=== PATIENT | male | born 1990 | race Caucasian/White ===

== ENCOUNTER 2016-09-13 13:52 | Outpatient (CLI) ==
[2016-08-26 17:40] VITALS: BMI 22.2
--- NOTE | 2016-09-13 16:20 | MRI ---
EXAM: MRI lumbar spine without IV contrast. DATE: 09/13/2016. HISTORY: Low back pain. TECHNIQUE: Sagittal and axial T1W and T2W sequences of the lumbar spine along with sagittal IR and coronal T2W sequences were obtained using 1.2 Юлия magnet. No IV contrast. COMPARISON: MRI L-spine 10/19/2014. CT L-spine 02/14/2014. FINDINGS: There are five [id number] lumbar vertebra. Minor leftward curvature of the lumbar s pine is observed. No acute lumbar fracture, subluxation, osseous malignancy, or pars interarticular is defect is identified. Lumbar vertebrae normal in height. Tiny, chronic Schmorl's nodes are seen at T11 and T12. Bone marrow signal is normal. Minor disc desiccation without significant disc spa ce narrowing is observed at L1-2. Remaining intervertebral discs are normal in height and signal. No sacral fracture or stress reaction is apparent at SI joints are unremarkable. Conus medullaris t erminates at L1-2. Visible spinal cord is normal. No retroperitoneal lymphadenopathy, paraspinal mass, or aortic aneurysm is detected. Paraspinal mus culature is symmetric and normal bilaterally. Visible portions of the liver, gallbladder, spleen, a drenal glands, and kidneys are normal. No bowel obstruction or neoplasm is evident. Segmental analysis: T11-12: Sagittal images reveal tiny posterior disc bulge. No cord compression, central stenosis or foraminal stenosis. T12-L1: Normal. L1-2: Minimal posterior disc bulge does not cause central stenosis or foraminal stenosis. L2-3: Normal. L3-4: Minimal left foraminal to far lateral disc bulge causes minimal left inferior foraminal narro wing. Left L3 nerve root approaches the disc bulge near the lateral margin of the foramen. No cent ral canal stenosis. L4-5: Normal L5-S1: Minimal posterior disc bulge and minor left facet arthropathy cause minimal left foraminal n arrowing. No central canal stenosis. IMPRESSIONS: 1. L-spine minor DDD and facet arthropathy. 2. No lumbar spine central canal stenosis. 3. Minor left foraminal stenoses at L3-4 and L4-5. Left L3 nerve root approaches the disc bulge ne ar the foramen, and could be a source for pain/radiculopathy.
== END 2016-09-13 13:53 | disposition home or self-care (01) ==
LOC: RAD 13:52
PROVIDERS: ATTEND Physician Assistant
DX: M54.5 Low back pain (principal)

== ENCOUNTER 2016-09-18 22:08 | Emergency (ER) ==
[2016-09-18 22:18] VITALS: BP 146/81; TEMP 99; BMI 21.7
[2016-09-18] MEDS ORDERED: CITRATE OF MAGNESIA PO STA (22:26)
[2016-09-18 22:40] LABS: BASOPHILS % (AUTO) 0.1 % (0.0-3.0); HEMATOCRIT 40.8 % (42.0-52.0); HEMOGLOBIN 14.1 g/dl (14.0-18.0); IMMATURE GRANULOCYTE % (AUTO) 0.6 % (0.0-5.0); LYMPHOCYTES # (AUTO) 1.4 K/uL (0.60-3.4); LYMPHOCYTES % (AUTO) 9.9 (10.0-50.0); MEAN CORPUSCULAR HEMOGLOBIN 29.5 pg (27.0-31.0); MEAN CORPUSCULAR HGB CONC 34.6 (31.8-35.4); MEAN CORPUSCULAR VOLUME 85.4 fl (80.0-94.0); MONOCYTES # (AUTO) 0.4 K/uL (0.4-2.0); MONOCYTES % (AUTO) 3.1 (0-10); NEUTROPHILS # (AUTO) 12.1 K/ul (2.0-6.9); NEUTROPHILS % (AUTO) 86.3; PLATELET COUNT 215 10^3/uL (140-440); RED BLOOD COUNT 4.78 10^6/ul (4.70-6.10)
[2016-09-18 23:08] LABS: ALBUMIN 4.8 g/dL (3.4-5.0); ALBUMIN/GLOBULIN RATIO 1.45; ANION GAP 14.4; BILIRUBIN,TOTAL 0.59 mg/dL (0.00-1.20); BUN/CREATININE RATIO 15.66; CALCIUM 10.3 mg/dL (8.2-10.2); CREATININE 0.83 mg/dL (0.60-1.10); POTASSIUM 4.4 mmol/L (3.5-5.1); TOTAL PROTEIN 8.1 g/dL (6.4-8.2)
[2016-09-18 23:11] LABS: ADD URINE MICROSCOPIC NO; BILIRUBIN,URINE Negative (NEGATIVE); KETONES,URINE Negative (NEGATIVE); LEUKOCYTE ESTERASE ,URINE Negative (NEGATIVE); NITRITE,URINE Negative (NEGATIVE); PH,URINE 6.5 (5-9); PROTEIN,URINE Negative (NEGATIVE); URINE, BLOOD Negative (NEGATIVE)
--- NOTE | 2016-09-18 23:15 | CT ---
EXAM: CT brain without contrast HISTORY: Headache TECHNIQUE: CT of the brain without intravenous contrast FINDINGS: There is no acute hemorrhage midline shift or mass effect. No hydrocephalus or abnormal extra-axial fluid collection. No significant parenchymal attenuation abnormality. The bony cranium appears normal. The visualized paranasal sinuses are clear. Soft tissues without significant abnorm ality. IMPRESSION: 1. CT of the brain within normal limits.
[2016-09-18 23:17] LABS: ERYTHROCYTE SEDIMENTATION RATE 8 mm/hr (0-15); ESR INTERNAL QC INTERNAL QC VALID
--- NOTE | 2016-09-18 23:22 | CT ---
Exam: CT of the abdomen and pelvis without contrast History: Abdominal pain Technique: [address] of the abdomen and pelvis without intravascular contrast FINDINGS: The lung bases are clear. No significant liver abnormality. The adrenals, pancreas and sp sarai are unremarkable. The stomach and hiatus are unremarkable. The gallbladder appears normal. Kidn eys and proximal collecting system are unremarkable. The appendix is normal. Bowel loops demonstrate normal caliber. No inflamatory change seen in the mesentery or retroperitoneum. Vascular structures appear normal by noncontrast CT. Pelvic genitourinary structures appear normal. Pelvic bowel loops are unremarkable. No inflammatory change in the pelvic fat. No acute abnormality of the abdominal or pelvic skeleton. Impression: 1. No inflammatory process, bowel or urinary obstruction is seen. No acute findings of the abdomen pelvis.
[2016-09-18] MEDS ORDERED: DULCOLAX RC STA (23:45)
--- NOTE | 2016-09-18 23:48 | ED.PDOC ---
General ED Provider: Dr. MELO NATION-ER Chief Complaint: Constipation Stated Complaint: no bm for one week Time Seen by Physician: 22:10 Mode of Arrival: Walk-In Information Source: Patient, Family Exam Limitations: No limitations Primary Care Provider: DANISHA MARIANO Nursing and Triage Documentation Reviewed and Agree: Yes GI Complaint Exam - Abdominal Pain Complaint/Exam Onset: Gradual Duration: one week Symptoms Are: Still present Timing: Intermittent Initial Severity: Mild Current Severity: Mild Location of Pain: Diffuse Character: Reports: Dull Aggravating: Reports: None Associated Signs and Symptoms: Reports: Constipation AAA Risk Factors: Reports: None Cardiac Risk Factors: Reports: None Testicular Torsion Risk Factors: Reports: None Abdominal Findings: Present: None Differential Diagnoses: Constipation Review of Systems - Review Of Systems Constitutional: Reports: No symptoms Eyes: Reports: No symptoms Ears, Nose, Mouth, Throat: Reports: No symptoms Respiratory: Reports: No symptoms Cardiac: Reports: No symptoms GI: Reports: Abdominal pain, Constipated : Reports: No symptoms Musculoskeletal: Reports: No symptoms Skin: Reports: No symptoms Neurological: Reports: No symptoms Endocrine: Reports: No symptoms Hematologic/Lymphatic: Reports: No symptoms All Other Systems: Reviewed and Negative Past Medical History - Past Medical History Previously Healthy: No Endocrine: Reports: None Cardiovascular: Reports: Hypertension Respiratory: Reports: Asthma Hematological: Reports: None Gastrointestinal: Reports: GERD Genitourinary: Reports: None Neuro/Psych: Reports: Migraine, Anxiety, Depression, Bipolar Disorder Musculoskeletal: Reports: None Cancer: Reports: None Other Pertinent Past Medical History: Dental Caries, Hypoglycemia - Surgical History General Surgical History: Reports: Other (dental extraions one week ago . PE TUBES ) - Family History Family History: Reports: Unknown - Social History Smoking Status: Current every day smoker, Heavy tobacco smoker Hx Substance Use: No (Frequent ER visits) Alcohol Screening: None Lives: With family - Immunizations Tetanus Shot up to Date: Yes Physical Exam - Physical Exam Appearance: Well-appearing, No pain distress, Well-nourished Eyes: PRATIMA ENT: Ears normal, Nose normal, Oropharynx normal Neck: Supple Respiratory: Airway patent, Breath sounds clear, Breath sounds equal, Respirations nonlabored Cardiovascular: RRR, Pulses normal, No rub, No murmur GI/: Soft, Nontender, No masses, Bowel sounds normal, No Organomegaly Musculoskeletal: Normal strength, ROM intact, No edema, No calf tenderness Skin: Warm Neurological: Sensation intact, Motor intact, Reflexes intact, Cranial nerves intact, Alert, Oriented Psychiatric: Affect appropriate, Mood appropriate Interpretation - Radiology Interpretation Radiology Interpretation By: Radiologist Radiology Results: Negative Exam Interpreted: CT Scan Critical Care Note - Critical Care Note Total Time (mins): 0 Course - Course Hematology/Chemistry: 09/18/16 22:25 09/18/16 22:45 Orders, Labs, Meds: Lab Review 09/18/16 09/18/16 09/18/16 22:25 22:36 22:45 WBC 14.00 H RBC 4.78 Hgb 14.1 Hct 40.8 L MCV 85.4 MCH 29.5 MCHC 34.6 RDW Coeff of Steven 12.5 Plt Count 215 Immature Gran % (Auto) 0.6 Neut % (Auto) 86.3 Lymph % (Auto) 9.9 L [place] % (Auto) 3.1 Eos % (Auto) 0.0 Baso % (Auto) 0.1 Immature Gran # (Auto) 0.1 Neut # 12.1 H Lymph # 1.4 [place] # 0.4 Eos # 0.0 Baso # 0.0 ESR 8 Sodium 141 Potassium 4.4 Chloride 105 Carbon Dioxide 26 Anion Gap 14.4 BUN 13 Creatinine 0.83 Estimated GFR (MDRD) 110.00 BUN/Creatinine Ratio 15.66 Glucose 112 H Calcium 10.3 H Total Bilirubin 0.59 AST 13 L ALT 13 Alkaline Phosphatase 51 Total Protein 8.1 Albumin 4.8 Globulin 3.3 Albumin/Globulin Ratio 1.45 Amylase 54 Lipase 21 Urine Color Urine Clarity Urine pH Ur Specific [place] Urine Protein Urine Glucose (UA) Urine Ketones Urine Blood Urine Nitrite Urine Bilirubin Urine Urobilinogen Ur Leukocyte Esterase 09/18/16 23:00 WBC RBC Hgb Hct MCV MCH MCHC RDW Coeff of Steven Plt Count Immature Gran % (Auto) Neut % (Auto) Lymph % (Auto) [place] % (Auto) Eos % (Auto) Baso % (Auto) Immature Gran # (Auto) Neut # Lymph # [place] # Eos # Baso # ESR Sodium Potassium Chloride Carbon Dioxide Anion Gap BUN Creatinine Estimated GFR (MDRD) BUN/Creatinine Ratio Glucose Calcium Total Bilirubin AST ALT Alkaline Phosphatase Total Protein Albumin Globulin Albumin/Globulin Ratio Amylase Lipase Urine Color Yellow Urine Clarity Clear Urine pH 6.5 Ur Specific [place] 1.025 Urine Protein Negative Urine Glucose (UA) Negative Urine Ketones Negative Urine Blood Negative Urine Nitrite Negative Urine Bilirubin Negative Urine Urobilinogen 0.2 Ur Leukocyte Esterase Negative Orders Category Date Time Status AMYLASE Stat LAB 09/18/16 22:45 Completed CBC W/ AUTO DIFF Stat LAB 09/18/16 22:25 Completed COMPREHENSIVE METABOLIC PANEL Stat LAB 09/18/16 22:45 Completed ESR Stat LAB 09/18/16 22:36 Completed LIPASE Stat LAB 09/18/16 22:45 Completed URINALYSIS C & S IF INDICATED Stat LAB 09/18/16 23:00 Completed Bisacodyl [Dulcolax] MEDS 09/18/16 23:45 Stat 10 mg RC ONCE STA Magnesium Citrate [Citrate of Magnesia] MEDS 09/18/16 22:26 Discontinued 10 oz PO ONCE STA CT ABDOMEN/PELVIS WO CONTRAST Stat RADS 09/18/16 22:[address] HEAD W/O CONTRAST Stat RADS 09/18/16 22:41 Completed Medications Generic Name Dose Route Start Last Admin Trade Name Freq PRN Reason Stop Dose Admin Bisacodyl 10 mg 09/18/16 23:45 Dulcolax RC 09/18/16 23:46 ONCE STA Discontinued Medications Generic Name Dose Route Start Last Admin Trade Name Freq PRN Reason Stop Dose Admin Magnesium Citrate 10 oz 09/18/16 22:26 09/18/16 22:57 Citrate Of Magnesia PO 09/18/16 22:27 10 oz ONCE STA Administration Vital Signs: Temp Pulse Resp BP Pulse Ox 09/18/16 22:09 99 F 100 H 18 146/81 H 95 Departure - Departure Time of Disposition: 23:47 Disposition: HOME SELF-CARE Discharge Problem: Constipation Instructions: Constipation (ED) Condition: Good Pt referred to PMD for follow-up: Yes Additional Instructions: increase juices-keep f/u with gi Allergies/Adverse Reactions: Allergies amoxicillin [Amoxicillin] Adverse Reaction (Verified 09/18/16 22:17) Swelling clindamycin Adverse Reaction (Verified 09/18/16 22:17) Unknown states it is causing a bad bacteria to grow in his stomach per Dr. Luna at [facility] dexamethasone [From Decadron] Adverse Reaction (Verified 09/18/16 22:17) ketorolac [From Toradol] Adverse Reaction (Verified 09/18/16 22:17) paroxetine HCl [From Paxil] Adverse Reaction (Verified 09/18/16 22:17) Penicillins Adverse Reaction (Verified 09/18/16 22:17) Swelling rofecoxib [From Vioxx] Adverse Reaction (Verified 09/18/16 22:17) Sulfa (Sulfonamide Antibiotics) Adverse Reaction (Verified 09/18/16 22:17) Rash sulfamethoxazole [From Bactrim] Adverse Reaction (Verified 09/18/16 22:17) Swelling trimethoprim [From Bactrim] Adverse Reaction (Verified 09/18/16 22:17) Swelling swelling in throat Home Medications: Ambulatory Orders Albuterol Sulfate [Proair Hfa] 2 puff IH Q4H PRN 08/26/16 Disposition Discussed With: Patient, Family
[2016-09-18] MEDS ORDERED: PHENERGAN 25 MG/ML VIAL IM STA (23:58)
[2016-09-18] MEDS ORDERED: STADOL IM STA (23:58)
== END 2016-09-19 00:41 | disposition home or self-care (01) ==
LOC: ED 22:08
DX: K59.00 Constipation, unspecified (principal); F17.210 Nicotine dependence, cigarettes, uncomplicated
CPT/HCPCS: 36415; 80053; 81001; 82150; 83690; 85025; 85651; 96372; 99283

== ENCOUNTER 2016-09-21 16:45 | Outpatient (CLI) | END 2016-09-21 16:46 | disposition home or self-care (01) | LOC: NONPT 16:45 | PROVIDERS: ATTEND Physician Assistant | DX: R11.2 Nausea with vomiting, unspecified (principal) | CPT/HCPCS: 87493 ==

== ENCOUNTER 2016-09-29 20:10 | Emergency (ER) ==
[2016-09-29 20:18] VITALS: BP 137/83; TEMP 99.2; BMI 22.8
[2016-09-29] MEDS ORDERED: DILAUDID 2 MG/ML SYRINGE IM STA (20:20)
[2016-09-29] MEDS ORDERED: PHENERGAN 25 MG/ML VIAL IM STA (20:20)
--- NOTE | 2016-09-29 20:23 | ED.PDOC ---
General ED Provider: Dr. MELO NATION-ER Chief Complaint: Headache Stated Complaint: analisa got a migraine mustafa--its just like my other ones--im sick Time Seen by Physician: 20:15 Mode of Arrival: Walk-In Information Source: Patient, Family Exam Limitations: No limitations Primary Care Provider: DANISHA MARIANO Nursing and Triage Documentation Reviewed and Agree: Yes Neurological Complaint Exam - Headache Complaint/Exam Onset: Gradual Duration: several hours Symptoms Are: Still present Timing: Constant Worst Headache Ever: No Initial Severity: Mild Current Severity: Moderate Location: Left, Frontal, Temporal Character: Reports: Dull, Throbbing, Typical headache, Migraine Aggravating: Reports: Bright lights Alleviating: Reports: None Associated Signs and Symptoms: Reports: Nausea, Vomiting. Denies: Dizziness, Seizure, Sinus pressure, Fever, Neck pain, Neck stiffness, Decreased LOC, Visual changes Related History: Reports: Similar episode (long hx of migraine since age 17). Denies: Recent trauma, Remote trauma Related Surgical History: Reports: None SAH Risk Factors: Reports: None Meningitis Risk Factors: Reports: None SDH Risk Factors: Reports: Male Temporal Arteritis Risk Factors: Reports: Normal Head CT Within Last 12 Months: Yes Fundoscopic Exam: Present: Normal Findings Papilledema Present: No Temporal Artery Tenderness: Present: None Sinus Tenderness: Present: None TMJ Tenderness: Present: None Glascow Coma Scale (see protocol): 15 Meningeal Signs Positive: No Pain on Passive Flexion-Positive Kernig's: No ROM Limited In: No Limitiations Focal Weakness: Present: None Focal Sensory Loss: Present: None Gait: Normal Nystagmus Present: No Gag Reflex Present: No [id number]: Normal Findings Romberg Test Positive: No Babinski Sign: Negative Right, Negative Left Heel to Toe Normal: Yes Differential Diagnoses: Migraine Review of Systems - Review Of Systems Constitutional: Reports: No symptoms Eyes: Reports: No symptoms Ears, Nose, Mouth, Throat: Reports: No symptoms Respiratory: Reports: No symptoms Cardiac: Reports: No symptoms GI: Reports: Nausea, Vomiting : Reports: No symptoms Musculoskeletal: Reports: No symptoms Skin: Reports: No symptoms Neurological: Reports: Headache, Unable to move upper ext Endocrine: Reports: No symptoms Hematologic/Lymphatic: Reports: No symptoms All Other Systems: Reviewed and Negative Past Medical History - Past Medical History Previously Healthy: No Endocrine: Reports: None Cardiovascular: Reports: Hypertension Respiratory: Reports: Asthma Hematological: Reports: None Gastrointestinal: Reports: GERD Genitourinary: Reports: None Neuro/Psych: Reports: Migraine, Anxiety, Depression, Bipolar Disorder Musculoskeletal: Reports: None Cancer: Reports: None Other Pertinent Past Medical History: Dental Caries, Hypoglycemia - Surgical History General Surgical History: Reports: Other (dental extraions one week ago . PE TUBES ) - Family History Family History: Reports: Unknown - Social History Smoking Status: Current every day smoker, Heavy tobacco smoker Hx Substance Use: No (Frequent ER visits) Alcohol Screening: None Lives: With family - Immunizations Tetanus Shot up to Date: Yes Physical Exam - Physical Exam Appearance: Well-appearing, No pain distress, Well-nourished Pain Distress: Moderate Eyes: PRATIMA, EOMI, Conjunctiva clear ENT: Ears normal, Nose normal, Oropharynx normal Neck: Supple Respiratory: Airway patent, Breath sounds clear, Breath sounds equal, Respirations nonlabored Cardiovascular: RRR, Pulses normal, No rub, No murmur GI/: Soft, Nontender, No masses, Bowel sounds normal, No Organomegaly Musculoskeletal: Normal strength, ROM intact, No edema, No calf tenderness Skin: Warm, Dry, Normal color Neurological: Sensation intact, Motor intact, Reflexes intact, Cranial nerves intact, Alert, Oriented Psychiatric: Affect appropriate, Mood appropriate Re-Evaluation - Re-Evaluation Time of Re-Evaluation: 20:24 Status: Improved Vital Signs Stable: Yes Pain Level: 1 Appearance: NAD Lungs: Clear Skin: Warm and Dry Neuro: Alert and Oriented X3 CV: RRR Critical Care Note - Critical Care Note Total Time (mins): 0 Course - Course Orders, Labs, Meds: Orders Category Date Time Status Hydromorphone HCl/Pf [Dilaudid 2 mg/ml Syringe] MEDS 09/29/16 20:20 Stat 2 mg IM ONCE STA Promethazine HCl [Phenergan 25 mg/ml Vial] MEDS 09/29/16 20:20 Stat 25 mg IM ONCE STA Vital Signs: Temp Pulse Resp BP Pulse Ox 09/29/16 20:13 99.2 F 116 H 20 137/83 98 Departure - Departure Time of Disposition: 20:24 Disposition: HOME SELF-CARE Discharge Problem: Headache Instructions: Migraine Headache (ED) Condition: Good Pt referred to PMD for follow-up: Yes Additional Instructions: f/u with pcp Allergies/Adverse Reactions: Allergies amoxicillin [Amoxicillin] Adverse Reaction (Verified 09/29/16 20:17) Swelling clindamycin Adverse Reaction (Verified 09/29/16 20:17) Unknown states it is causing a bad bacteria to grow in his stomach per Dr. Luna at [facility] dexamethasone [From Decadron] Adverse Reaction (Verified 09/29/16 20:17) ketorolac [From Toradol] Adverse Reaction (Verified 09/29/16 20:17) paroxetine HCl [From Paxil] Adverse Reaction (Verified 09/29/16 20:17) Penicillins Adverse Reaction (Verified 09/29/16 20:17) Swelling rofecoxib [From Vioxx] Adverse Reaction (Verified 09/29/16 20:17) Sulfa (Sulfonamide Antibiotics) Adverse Reaction (Verified 09/29/16 20:17) Rash sulfamethoxazole [From Bactrim] Adverse Reaction (Verified 09/29/16 20:17) Swelling trimethoprim [From Bactrim] Adverse Reaction (Verified 09/29/16 20:17) Swelling swelling in throat Home Medications: Ambulatory Orders Albuterol Sulfate [Proair Hfa] 2 puff IH Q4H PRN 08/26/16 Disposition Discussed With: Patient
== END 2016-09-29 20:46 | disposition home or self-care (01) ==
LOC: ED 20:10
DX: G43.909 Migraine, unspecified, not intractable, without status migrainosus (principal); F17.210 Nicotine dependence, cigarettes, uncomplicated
CPT/HCPCS: 96372; 99282; 99283

== ENCOUNTER 2016-10-12 21:33 | Emergency (ER) ==
[2016-10-12 21:47] VITALS: BP 144/75; TEMP 98.6; BMI 23.5
--- NOTE | 2016-10-12 22:22 | DI ---
Exam: Left knee four view HISTORY: Left knee pain Findings / Impression: No significant bony or articular abnormality. No significant surrounding so ft tissue abnormality. Negative exam.
--- NOTE | 2016-10-12 22:45 | ED.PDOC ---
General ED Provider: Dr. MELO ANTION-ER Chief Complaint: Knee Pain/Injury Stated Complaint: i have a hx of knee problems and see an orthopedic doctor--i was helping my landlord move and i heard a pop in my knee Time Seen by Physician: 22:43 Mode of Arrival: Walk-In Information Source: Patient Exam Limitations: No limitations Primary Care Provider: DANISHA MARIANO Nursing and Triage Documentation Reviewed and Agree: Yes Musculoskeletal Complaint Exam - Knee Pain Complaint/Exam Mechanism of Injury: Reports: Trauma Onset/Duration: several hours Symptoms Are: Still present Onset of Pain: Reports: Immediate Initial Severity: Mild Current Severity: Mild Location: Reports: Discrete (left knee) Character: Reports: Dull, Aching, Throbbing Alleviating: Reports: Rest Aggravating: Reports: Movement, Weight bearing, Prolonged standing Associated Signs and Symptoms: Denies: Swelling, Redness, Bruising, Fever, Weakness, Numbness, Tingling Able to Bear Weight: Yes Related History: Reports: Similar episode Septic Arthritis Risk Factors: Reports: None Gout Risk Factors: Reports: Male Knee Findings: Present: Tenderness, Limited range of motion Ron Test Positive: No Regan Test Positive: No Limited Range of Motion: Present: Active, Passive Differential Diagnoses: Closed Fracture, Internal Derangement, Sprain, Strain Review of Systems - Review Of Systems Constitutional: Reports: No symptoms Eyes: Reports: No symptoms Ears, Nose, Mouth, Throat: Reports: No symptoms Respiratory: Reports: No symptoms Cardiac: Reports: No symptoms GI: Reports: No symptoms : Reports: No symptoms Musculoskeletal: Reports: Joint pain, Muscle pain Skin: Reports: No symptoms Neurological: Reports: No symptoms Endocrine: Reports: No symptoms Hematologic/Lymphatic: Reports: No symptoms All Other Systems: Reviewed and Negative Past Medical History - Past Medical History Previously Healthy: No Endocrine: Reports: None Cardiovascular: Reports: Hypertension Respiratory: Reports: Asthma Hematological: Reports: None Gastrointestinal: Reports: GERD Genitourinary: Reports: None Neuro/Psych: Reports: Migraine, Anxiety, Depression, Bipolar Disorder Musculoskeletal: Reports: None Cancer: Reports: None Other Pertinent Past Medical History: Dental Caries, Hypoglycemia - Surgical History General Surgical History: Reports: Other (dental extraions one week ago . PE TUBES ) - Family History Family History: Reports: Unknown - Social History Smoking Status: Current every day smoker, Light tobacco smoker Hx Substance Use: No (Frequent ER visits) Alcohol Screening: None Lives: With family - Immunizations Tetanus Shot up to Date: Yes Physical Exam - Physical Exam Appearance: Well-appearing, No pain distress, Well-nourished Pain Distress: Mild Eyes: PRATIMA, EOMI, Conjunctiva clear ENT: Ears normal, Nose normal, Oropharynx normal Neck: Supple Respiratory: Airway patent, Breath sounds clear, Breath sounds equal, Respirations nonlabored Cardiovascular: RRR, Pulses normal, No rub, No murmur GI/: Soft, Nontender, No masses, Bowel sounds normal, No Organomegaly Musculoskeletal: Limited ROM Skin: Warm, Dry, Normal color Neurological: Sensation intact, Motor intact, Reflexes intact, Cranial nerves intact, Alert, Oriented Psychiatric: Affect appropriate, Mood appropriate Interpretation - Radiology Interpretation Radiology Interpretation By: Radiologist Radiology Results: Negative Critical Care Note - Critical Care Note Total Time (mins): 0 Course - Course Orders, Labs, Meds: Orders Category Date Time Status CRUTCHES [ED CRUTCHES] .ONCE EMERGENCY 10/12/16 22:42 Ordered ED SPLINT APPLICATION .ONCE EMERGENCY 10/12/16 22:42 Ordered KNEE, LEFT 4 VIEWS Stat RADS 10/12/16 21:54 Completed Vital Signs: Temp Pulse Resp BP Pulse Ox 10/12/16 21:36 98.6 F 89 18 144/75 H 98 Departure - Departure Time of Disposition: 22:45 Disposition: HOME SELF-CARE Discharge Problem: Knee pain Instructions: Knee Sprain (ED), Knee Pain (ED) Condition: Good Pt referred to PMD for follow-up: Yes Additional Instructions: stay in immobilizer and use crutches--norco 5mg q 6hrs prn pain #12--f/u with ortho Allergies/Adverse Reactions: Allergies amoxicillin [Amoxicillin] Adverse Reaction (Verified 09/29/16 20:17) Swelling clindamycin Adverse Reaction (Verified 09/29/16 20:17) Unknown states it is causing a bad bacteria to grow in his stomach per Dr. Jeremy Salmeron dexamethasone [From Decadron] Adverse Reaction (Verified 09/29/16 20:17) ketorolac [From Toradol] Adverse Reaction (Verified 09/29/16 20:17) paroxetine HCl [From Paxil] Adverse Reaction (Verified 09/29/16 20:17) Penicillins Adverse Reaction (Verified 09/29/16 20:17) Swelling rofecoxib [From Vioxx] Adverse Reaction (Verified 09/29/16 20:17) Sulfa (Sulfonamide Antibiotics) Adverse Reaction (Verified 09/29/16 20:17) Rash sulfamethoxazole [From Bactrim] Adverse Reaction (Verified 09/29/16 20:17) Swelling trimethoprim [From Bactrim] Adverse Reaction (Verified 09/29/16 20:17) Swelling swelling in throat Home Medications: Ambulatory Orders Albuterol Sulfate [Proair Hfa] 2 puff IH Q4H PRN 08/26/16 Disposition Discussed With: Patient
== END 2016-10-12 22:55 | disposition home or self-care (01) ==
LOC: ED 21:33
DX: M25.562 Pain in left knee (principal); F17.210 Nicotine dependence, cigarettes, uncomplicated
CPT/HCPCS: 99283

== ENCOUNTER 2016-10-21 12:20 | Outpatient (CLI) ==
--- NOTE | 2016-10-21 14:42 | DI ---
EXAM: Five views of the cervical spine HISTORY: Neck pain. COMPARISON: CT soft tissue neck FINDINGS: There is no acute compression fracture or subluxation of the cervical spine. There is str aightening the cervical spine. The facets and posterior processes are normal. Prevertebral soft ti ssues are normal. Neural foramen are patent. The odontoid process is unremarkable. IMPRESSION: 1. No acute compression fracture, subluxation or abnormality of the cervical spine. 2. Straightening may be positioning versus muscle spasm.
== END 2016-10-21 12:21 | disposition home or self-care (01) ==
LOC: LAB 12:20
PROVIDERS: ATTEND Physician Assistant
DX: M54.2 Cervicalgia (principal); A04.7 Enterocolitis due to Clostridium difficile
CPT/HCPCS: 87493

== ENCOUNTER 2016-11-22 12:29 | Outpatient (CLI) | END 2016-11-22 12:30 | disposition home or self-care (01) | LOC: LAB 12:29 | PROVIDERS: ATTEND Nurse Practitioner Family | DX: A04.7 Enterocolitis due to Clostridium difficile (principal) | CPT/HCPCS: 87493 ==

== ENCOUNTER 2016-12-06 00:09 | Emergency (ER) ==
[2016-12-06 00:17] VITALS: BP 145/76; TEMP 98.4; BMI 22.7
[2016-12-06 00:31] LABS: BASOPHILS # (AUTO) 0.1 K/uL (0-0.2); BASOPHILS % (AUTO) 0.9 % (0.0-3.0); EOSINOPHILS # (AUTO) 0.1 K/ul (0.0-0.7); EOSINOPHILS % (AUTO) 2.6 % (0.0-7.0); HEMATOCRIT 40.8 % (42.0-52.0); HEMOGLOBIN 14.5 g/dl (14.0-18.0); IMMATURE GRANULOCYTE % (AUTO) 0.4 % (0.0-5.0); LYMPHOCYTES % (AUTO) 37.6 (10.0-50.0); MEAN CORPUSCULAR HGB CONC 35.5 (31.8-35.4); MEAN CORPUSCULAR VOLUME 84.5 fl (80.0-94.0); MONOCYTES # (AUTO) 0.4 K/uL (0.4-2.0); MONOCYTES % (AUTO) 7.3 (0-10); NEUTROPHILS # (AUTO) 2.8 K/ul (2.0-6.9); NEUTROPHILS % (AUTO) 51.2; PLATELET COUNT 213 10^3/uL (140-440); RED BLOOD COUNT 4.83 10^6/ul (4.70-6.10); WHITE BLOOD COUNT 5.37 K/ul (4.2-10.2)
[2016-12-06 00:35] LABS: BILIRUBIN,URINE Negative (NEGATIVE); KETONES,URINE Negative (NEGATIVE); LEUKOCYTE ESTERASE ,URINE Negative (NEGATIVE); NITRITE,URINE Negative (NEGATIVE); PROTEIN,URINE Negative (NEGATIVE); URINE, BLOOD Negative (NEGATIVE)
[2016-12-06 00:40] LABS: ADD URINE MICROSCOPIC NO
[2016-12-06 00:49] LABS: ALBUMIN 4.5 g/dL (3.4-5.0); ALBUMIN/GLOBULIN RATIO 1.41; ANION GAP 11.9; BILIRUBIN,TOTAL 0.64 mg/dL (0.00-1.20); BUN/CREATININE RATIO 9.61; CALCIUM 9.5 mg/dL (8.2-10.2); CREATININE 1.04 mg/dL (0.60-1.10); POTASSIUM 3.9 mmol/L (3.5-5.1); TOTAL PROTEIN 7.7 g/dL (6.4-8.2)
--- NOTE | 2016-12-06 01:01 | CT ---
EXAM: CT of the abdomen and pelvis without contrast. HISTORY: Abdominal pain. PROCEDURE: Contiguous axial CT images of the abdomen and pelvis without contrast with coronal and s agittal reformats. FINDINGS: The liver, gallbladder, pancreas, spleen, adrenal glands and kidneys are normal in appeara nce. The abdominal aorta is normal in appearance. The visualized loops of bowel and appendix are no rmal in appearance. No free fluid or free air in the abdomen or pelvis. The bladder is minimally f illed with no abnormality identified. The seminal vesicles and prostate gland are unremarkable. Th e bones and soft tissues are unremarkable. Impression: Negative CT of the abdomen and pelvis.
[2016-12-06 01:04] LABS: ERYTHROCYTE SEDIMENTATION RATE 6 mm/hr (0-15); ESR INTERNAL QC INTERNAL QC VALID
[2016-12-06] MEDS ORDERED: BENTYL IM STA (01:04)
[2016-12-06] MEDS ORDERED: PHENERGAN 25 MG/ML VIAL IM STA (01:04)
--- NOTE | 2016-12-06 01:13 | ED.PDOC ---
General ED Provider: Dr. MELO NATION-ER Chief Complaint: Abdominal Pain Stated Complaint: i hve c diff Time Seen by Physician: 01:11 Mode of Arrival: Walk-In Information Source: Patient Exam Limitations: No limitations Primary Care Provider: DELLA REYNOLDS Nursing and Triage Documentation Reviewed and Agree: Yes GI Complaint Exam - Abdominal Pain Complaint/Exam Onset: Gradual Duration: several hours Symptoms Are: Still present Initial Severity: Mild Current Severity: Mild Location of Pain: Diffuse Character: Reports: Dull, Aching Alleviating: Reports: None Associated Signs and Symptoms: Denies: Diaphoresis, Fever, Cough, Chest pain, Dizziness, Back pain, Constipation, Blood in stool, Dysuria, Urinary frequency, Decreased urine output, Decreased appetite, Discharge, Nausea, Vomiting, Diarrhea, Decreased activity Related History: Reports: Similar episode Cardiac Risk Factors: Reports: None Testicular Torsion Risk Factors: Reports: None Abdominal Findings: Present: None Review of Systems - Review Of Systems Constitutional: Reports: No symptoms Eyes: Reports: No symptoms Ears, Nose, Mouth, Throat: Reports: No symptoms Respiratory: Reports: No symptoms Cardiac: Reports: No symptoms GI: Reports: No symptoms : Reports: No symptoms Musculoskeletal: Reports: No symptoms Skin: Reports: No symptoms Neurological: Reports: No symptoms Endocrine: Reports: No symptoms Hematologic/Lymphatic: Reports: No symptoms All Other Systems: Reviewed and Negative Past Medical History - Past Medical History Previously Healthy: No Endocrine: Reports: None Cardiovascular: Reports: Hypertension Respiratory: Reports: Asthma Hematological: Reports: None Gastrointestinal: Reports: GERD Genitourinary: Reports: None Neuro/Psych: Reports: Migraine, Anxiety, Depression, Bipolar Disorder Musculoskeletal: Reports: None Cancer: Reports: None Other Pertinent Past Medical History: Dental Caries, Hypoglycemia - Surgical History General Surgical History: Reports: Other (dental extraions one week ago . PE TUBES ) - Family History Family History: Reports: Unknown - Social History Smoking Status: Current every day smoker, Light tobacco smoker Hx Substance Use: No (Frequent ER visits) Alcohol Screening: None - Immunizations Tetanus Shot up to Date: Yes Physical Exam - Physical Exam Appearance: Well-appearing, No pain distress, Well-nourished Eyes: PRATIMA, EOMI, Conjunctiva clear ENT: Ears normal Neck: Supple Respiratory: Airway patent, Breath sounds clear, Breath sounds equal, Respirations nonlabored Cardiovascular: RRR, Pulses normal, No rub, No murmur GI/: Soft, Nontender, No masses, Bowel sounds normal, No Organomegaly Musculoskeletal: Normal strength, ROM intact, No edema, No calf tenderness Skin: Warm, Dry, Normal color Neurological: Sensation intact, Motor intact, Reflexes intact, Cranial nerves intact, Alert, Oriented Psychiatric: Affect appropriate, Mood appropriate Interpretation - Radiology Interpretation Radiology Interpretation By: Radiologist Radiology Results: Negative Exam Interpreted: CT Scan Critical Care Note - Critical Care Note Total Time (mins): 0 Course - Course Hematology/Chemistry: 12/06/16 00:32 12/06/16 00:32 Orders, Labs, Meds: Lab Review 12/06/16 12/06/16 00:30 00:32 WBC 5.37 RBC 4.83 Hgb 14.5 Hct 40.8 L MCV 84.5 MCH 30.0 MCHC 35.5 H RDW Coeff of Steven 12.2 Plt Count 213 Immature Gran % (Auto) 0.4 Neut % (Auto) 51.2 Lymph % (Auto) 37.6 [place] % (Auto) 7.3 Eos % (Auto) 2.6 Baso % (Auto) 0.9 Immature Gran # (Auto) 0.0 Neut # 2.8 Lymph # 2.0 [place] # 0.4 Eos # 0.1 Baso # 0.1 ESR 6 Sodium 142 Potassium 3.9 Chloride 104 Carbon Dioxide 30 Anion Gap 11.9 BUN 10 Creatinine 1.04 Estimated GFR (MDRD) 85.00 BUN/Creatinine Ratio 9.61 Glucose 89 Calcium 9.5 Total Bilirubin 0.64 AST 15 ALT 17 Alkaline Phosphatase 48 L Total Protein 7.7 Albumin 4.5 Globulin 3.2 Albumin/Globulin Ratio 1.41 Amylase 60 Lipase 31 Urine Color Yellow Urine Clarity Clear Urine pH 7.0 Ur Specific [place] 1.015 Urine Protein Negative Urine Glucose (UA) Negative Urine Ketones Negative Urine Blood Negative Urine Nitrite Negative Urine Bilirubin Negative Urine Urobilinogen 1.0 Ur Leukocyte Esterase Negative Orders Category Date Time Status AMYLASE Stat LAB 12/06/16 00:32 Completed CBC W/ AUTO DIFF Stat LAB 12/06/16 00:32 Completed COMPREHENSIVE METABOLIC PANEL Stat LAB 12/06/16 00:32 Completed ESR Stat LAB 12/06/16 00:32 Completed LIPASE Stat LAB 12/06/16 00:32 Completed URINALYSIS C & S IF INDICATED Stat LAB 12/06/16 00:30 Completed Dicyclomine Inj [Bentyl] MEDS 12/06/16 01:04 Discontinued 20 mg IM ONCE STA Promethazine HCl [Phenergan 25 mg/ml Vial] MEDS 12/06/16 01:04 Discontinued 25 mg IM ONCE STA CT ABDOMEN/PELVIS WO CONTRAST Stat RADS 12/06/16 00:21 Completed Medications Discontinued Medications Generic Name Dose Route Start Last Admin Trade Name Freq PRN Reason Stop Dose Admin Dicyclomine HCl 20 mg 12/06/16 01:04 Bentyl IM 12/06/16 01:05 ONCE STA Promethazine HCl 25 mg 12/06/16 01:04 Phenergan 25 Mg/Ml Vial IM 12/06/16 01:05 ONCE STA Vital Signs: Temp Pulse Resp BP Pulse Ox 12/06/16 00:10 98.4 F 89 16 145/76 H 100 Departure - Departure Time of Disposition: 01:12 Disposition: HOME SELF-CARE Discharge Problem: Abdominal pain Instructions: Abdominal Pain (ED) Condition: Good Pt referred to PMD for follow-up: Yes Additional Instructions: f/u pcp Allergies/Adverse Reactions: Allergies amoxicillin [Amoxicillin] Adverse Reaction (Verified 12/06/16 00:17) Swelling clindamycin Adverse Reaction (Verified 12/06/16 00:17) Unknown states it is causing a bad bacteria to grow in his stomach per Dr. Jeremy trent Faviola dexamethasone [From Decadron] Adverse Reaction (Verified 12/06/16 00:17) ketorolac [From Toradol] Adverse Reaction (Verified 12/06/16 00:17) paroxetine HCl [From Paxil] Adverse Reaction (Verified 12/06/16 00:17) Penicillins Adverse Reaction (Verified 12/06/16 00:17) Swelling rofecoxib [From Vioxx] Adverse Reaction (Verified 12/06/16 00:17) Sulfa (Sulfonamide Antibiotics) Adverse Reaction (Verified 12/06/16 00:17) Rash sulfamethoxazole [From Bactrim] Adverse Reaction (Verified 12/06/16 00:17) Swelling trimethoprim [From Bactrim] Adverse Reaction (Verified 12/06/16 00:17) Swelling swelling in throat Home Medications: Ambulatory Orders Albuterol Sulfate [Proair Hfa] 2 puff IH Q4H PRN 08/26/16 Lorazepam [Ativan] 0.5 mg PO TID 12/06/16 Vancomycin HCl 250 mg PO TID 12/06/16 Disposition Discussed With: Patient
[2016-12-06] MEDS ORDERED: STADOL IM STA (01:19)
== END 2016-12-06 01:49 | disposition home or self-care (01) ==
LOC: ED 00:09
DX: R10.9 Unspecified abdominal pain (principal); F17.210 Nicotine dependence, cigarettes, uncomplicated
CPT/HCPCS: 36415; 80053; 81001; 82150; 83690; 85025; 85651; 96372; 99283

== ENCOUNTER 2016-12-07 09:41 | Emergency (ER) ==
[2016-12-07 09:49] VITALS: BP 122/85; TEMP 99.2; BMI 23.4
[2016-12-07] MEDS ORDERED: ZOFRAN 4 MG/2 ML IM STA (10:01)
[2016-12-07] MEDS ORDERED: MORPHINE 4 MG/ML SYRINGE IM STA (10:01)
[2016-12-07 10:12] LABS: BASOPHILS % (AUTO) 0.6 % (0.0-3.0); EOSINOPHILS # (AUTO) 0.2 K/ul (0.0-0.7); EOSINOPHILS % (AUTO) 2.2 % (0.0-7.0); HEMATOCRIT 38.6 % (42.0-52.0); HEMOGLOBIN 13.5 g/dl (14.0-18.0); IMMATURE GRANULOCYTE % (AUTO) 0.3 % (0.0-5.0); LYMPHOCYTES # (AUTO) 1.8 K/uL (0.60-3.4); LYMPHOCYTES % (AUTO) 26.8 (10.0-50.0); MEAN CORPUSCULAR HEMOGLOBIN 29.5 pg (27.0-31.0); MEAN CORPUSCULAR VOLUME 84.3 fl (80.0-94.0); MONOCYTES # (AUTO) 0.5 K/uL (0.4-2.0); MONOCYTES % (AUTO) 7.5 (0-10); NEUTROPHILS # (AUTO) 4.3 K/ul (2.0-6.9); NEUTROPHILS % (AUTO) 62.6; PLATELET COUNT 195 10^3/uL (140-440); RED BLOOD COUNT 4.58 10^6/ul (4.70-6.10); WHITE BLOOD COUNT 6.83 K/ul (4.2-10.2)
--- NOTE | 2016-12-07 10:48 | CT ---
Exam: CT scan of the abdomen and pelvis without contrast History: Right upper quadrant pain with associated upper abdominal pain. Nausea. Possible gallsto ne Findings: Computed tomography of the abdomen and pelvis was performed without the use of intravenou s contrast material with comparison made to the prior study performed with intravenous contrast mate rial earlier in the day at approximately 0048 hours. Review of lung window settings through the lung bases shows no evidence of acute basilar infiltrate, consolidate nor basilar pleural effusion. The nonenhanced liver and spleen appeared without significant abnormality. The gallbladder appears to be partially distended but without obvious radiodense gallstones nor pericholecystic inflammatory changes. Visualized portions of the pancreas appeared normal. The adrenal glands appear to be of normal size and configuration. There is persistent excretion of contrast material from both kidneys with partial opacification of the renal collecting systems and ureters bilaterally. There is no evidence of hydronephrosis nor ur eteral dilatation. There is no evidence of significant abnormality of the partially distended contrast filled bladder. Throughout the abdomen and pelvis there is no evidence of a concerning mass, evidence of active infl ammatory changes, abnormal fluid collection nor pathologic adenopathy. Abdominal aorta and iliac ar teries appeared normal in caliber. There are some air-fluid levels seen within some loops of small b owel which were borderline dilated measuring approximately 3.1 cm in the left side of the mid abdomi nal region. There is gas intermixed with fecal material seen through the colon and to the level of the rectum. Review of bone window settings in the sagittal planes suggest a slight anterior wedge deformity of t he T12 vertebral body. This does not appear to be acute however. Impression: The present study demonstrates some air-fluid levels within some of the left sided smal l bowel. This may simply be related to a mild ileus as no definite obstructing site nor diffuse dil atation of the small bowel proximal to this level is identified. Otherwise relatively normal appearing examination.
[2016-12-07 11:23] LABS: ANION GAP 9.9; POTASSIUM 3.9 mmol/L (3.5-5.1)
--- NOTE | 2016-12-07 11:23 | ED.PDOC ---
General ED Provider: Dr. JOAN LAWLER Chief Complaint: Abdominal Pain Stated Complaint: abdominal pain Time Seen by Physician: 09:46 Mode of Arrival: Walk-In Information Source: Patient Exam Limitations: No limitations Primary Care Provider: DELLA REYNOLDS Nursing and Triage Documentation Reviewed and Agree: Yes GI Complaint Exam - Abdominal Pain Complaint/Exam Onset: Gradual Duration: 1 day Symptoms Are: Still present Timing: Intermittent Initial Severity: Moderate Current Severity: Moderate Location of Pain: RUQ Character: Reports: Aching, Cramping Aggravating: Reports: Food Alleviating: Reports: None Associated Signs and Symptoms: Denies: Diaphoresis, Fever, Cough, Chest pain, Dizziness, Back pain, Constipation, Blood in stool, Dysuria, Urinary frequency, Decreased urine output, Decreased appetite, Discharge, Nausea, Vomiting, Diarrhea, Decreased activity Related History: Reports: Similar episode AAA Risk Factors: Reports: None Cardiac Risk Factors: Reports: None Testicular Torsion Risk Factors: Reports: None Surgical Obstruction Risk Factors: Reports: None Related Surgical History: Reports: None Abdominal Findings: Present: None Differential Diagnoses: Appendicitis, Bowel Obstruction, Constipation, GB Review of Systems - Review Of Systems Constitutional: Reports: No symptoms Eyes: Reports: No symptoms Ears, Nose, Mouth, Throat: Reports: No symptoms Respiratory: Reports: No symptoms Cardiac: Reports: No symptoms GI: Reports: Abdominal pain : Reports: No symptoms Musculoskeletal: Reports: No symptoms Skin: Reports: No symptoms Neurological: Reports: No symptoms Endocrine: Reports: No symptoms Hematologic/Lymphatic: Reports: No symptoms All Other Systems: Reviewed and Negative Past Medical History - Past Medical History Previously Healthy: No Endocrine: Reports: None Cardiovascular: Reports: Hypertension Respiratory: Reports: Asthma Hematological: Reports: None Gastrointestinal: Reports: GERD Genitourinary: Reports: None Neuro/Psych: Reports: Migraine, Anxiety, Depression, Bipolar Disorder Musculoskeletal: Reports: None Cancer: Reports: None Other Pertinent Past Medical History: Dental Caries, Hypoglycemia - Surgical History General Surgical History: Reports: Other (dental extraions one week ago . PE TUBES ) - Family History Family History: Reports: Unknown - Social History Smoking Status: Current every day smoker, Light tobacco smoker Hx Substance Use: No (Frequent ER visits) Alcohol Screening: None Physical Exam - Physical Exam Appearance: Well-appearing, No pain distress, Well-nourished Eyes: PRATIMA, EOMI, Conjunctiva clear ENT: Ears normal, Nose normal, Oropharynx normal Respiratory: Airway patent, Breath sounds clear, Breath sounds equal, Respirations nonlabored Cardiovascular: RRR, Pulses normal, No rub, No murmur GI/: Soft, Nontender, No masses, Bowel sounds normal, No Organomegaly Musculoskeletal: Normal strength, ROM intact, No edema, No calf tenderness Skin: Warm, Dry, Normal color Neurological: Sensation intact, Motor intact, Reflexes intact, Cranial nerves intact, Alert, Oriented Psychiatric: Affect appropriate, Mood appropriate Interpretation - Radiology Interpretation Radiology Interpretation By: Radiologist Radiology Results: No acute changes Critical Care Note - Critical Care Note Total Time (mins): 0 Course - Course Hematology/Chemistry: 12/07/16 10:00 Orders, Labs, Meds: Lab Review 12/07/16 10:00 WBC 6.83 RBC 4.58 L Hgb 13.5 L Hct 38.6 L MCV 84.3 MCH 29.5 MCHC 35.0 RDW Coeff of [place] 12.3 Plt Count 195 Immature Gran % (Auto) 0.3 Neut % (Auto) 62.6 Lymph % (Auto) 26.8 [place] % (Auto) 7.5 Eos % (Auto) 2.2 Baso % (Auto) 0.6 Immature Gran # (Auto) 0.0 Neut # 4.3 Lymph # 1.8 [place] # 0.5 Eos # 0.2 Baso # 0.0 Orders Category Date Time Status AMYLASE Stat LAB 12/07/16 10:00 Received CBC W/ AUTO DIFF Stat LAB 12/07/16 10:00 Completed COMPREHENSIVE METABOLIC PANEL Stat LAB 12/07/16 10:00 Received LIPASE Stat LAB 12/07/16 10:00 Received Morphine Sulfate [Morphine 4 mg/ml Syringe] MEDS 12/07/16 10:01 Discontinued 4 mg IM ONCE STA Ondansetron HCl/Pf [Zofran 4 mg/2 ml] MEDS 12/07/16 10:01 Discontinued 4 mg IM ONCE STA CT ABDOMEN/PELVIS WO CONTRAST Stat RADS 12/07/16 10:01 Completed Medications Discontinued Medications Generic Name Dose Route Start Last Admin Trade Name Freq PRN Reason Stop Dose Admin Morphine Sulfate 4 mg 12/07/16 10:01 12/07/16 10:22 Morphine 4 Mg/Ml Syringe IM 12/07/16 10:02 4 mg ONCE STA Administration Ondansetron HCl 4 mg 12/07/16 10:01 12/07/16 10:23 Zofran 4 Mg/2 Ml IM 12/07/16 10:02 4 mg ONCE STA Administration Vital Signs: Temp Pulse Resp BP Pulse Ox 12/07/16 09:42 99.2 F 85 20 122/85 98 Departure - Departure Time of Disposition: 11:23 Disposition: HOME SELF-CARE Discharge Problem: Abdominal pain Instructions: Abdominal Pain (ED) Condition: Good Pt referred to PMD for follow-up: No Additional Instructions: Please call your Family Physician as soon as possible to schedule a follow-up appointment. Allergies/Adverse Reactions: Allergies dicyclomine [From Bentyl] Adverse Reaction (Unknown, Verified 12/07/16 09:50) amoxicillin [Amoxicillin] Adverse Reaction (Verified 12/07/16 09:50) Swelling clindamycin Adverse Reaction (Verified 12/07/16 09:50) Unknown states it is causing a bad bacteria to grow in his stomach per Dr. Luna at [facility] dexamethasone [From Decadron] Adverse Reaction (Verified 12/07/16 09:50) ketorolac [From Toradol] Adverse Reaction (Verified 12/07/16 09:50) paroxetine HCl [From Paxil] Adverse Reaction (Verified 12/07/16 09:50) Penicillins Adverse Reaction (Verified 12/07/16 09:50) Swelling rofecoxib [From Vioxx] Adverse Reaction (Verified 12/07/16 09:50) Sulfa (Sulfonamide Antibiotics) Adverse Reaction (Verified 12/07/16 09:50) Rash sulfamethoxazole [From Bactrim] Adverse Reaction (Verified 12/07/16 09:50) Swelling trimethoprim [From Bactrim] Adverse Reaction (Verified 12/07/16 09:50) Swelling swelling in throat Home Medications: Ambulatory Orders Albuterol Sulfate [Proair Hfa] 2 puff IH Q4H PRN 08/26/16 Lorazepam [Ativan] 0.5 mg PO TID 12/06/16 Vancomycin HCl 250 mg PO TID 12/06/16
[2016-12-07 11:24] LABS: ALBUMIN 4.6 g/dL (3.4-5.0); ALBUMIN/GLOBULIN RATIO 1.92; BILIRUBIN,TOTAL 0.8 mg/dL (0.00-1.20); BUN/CREATININE RATIO 15.71; CALCIUM 9.7 mg/dL (8.2-10.2); CREATININE 0.7 mg/dL (0.60-1.10)
== END 2016-12-07 11:31 | disposition home or self-care (01) ==
LOC: ED 09:41
DX: R10.11 Right upper quadrant pain (principal); F17.210 Nicotine dependence, cigarettes, uncomplicated; Z79.899 Other long term (current) drug therapy
CPT/HCPCS: 36415; 80053; 82150; 83690; 85025; 96372; 99283

== ENCOUNTER 2016-12-26 20:59 | Emergency (ER) ==
[2016-12-26 21:03] VITALS: BP 133/77; TEMP 98.5; BMI 23.6
--- NOTE | 2016-12-26 21:14 | ED.PDOC ---
General ED Provider: Dr. DOUG GUADARRAMA Chief Complaint: Abdominal Pain Stated Complaint: Patient had fecal matter transplant yesterday via Upper endoscopy due to failure to resolve his C diff. Then today started having Left upper abdominal pain and chest pain. was worried that he may have aspirated. Was told to come to the ER by the GI doctor. Time Seen by Physician: 21:11 Mode of Arrival: Walk-In Information Source: Patient Exam Limitations: No limitations Primary Care Provider: DANISHA MARIANO Nursing and Triage Documentation Reviewed and Agree: Yes Review of Systems - Review Of Systems Constitutional: Reports: No symptoms Eyes: Reports: No symptoms Ears, Nose, Mouth, Throat: Reports: Throat pain Respiratory: Reports: No symptoms Cardiac: Reports: No symptoms : Reports: No symptoms Musculoskeletal: Reports: No symptoms Skin: Reports: No symptoms Neurological: Reports: No symptoms Endocrine: Reports: No symptoms Hematologic/Lymphatic: Reports: No symptoms All Other Systems: Reviewed and Negative Past Medical History - Past Medical History Previously Healthy: No Endocrine: Reports: None Cardiovascular: Reports: Hypertension Respiratory: Reports: Asthma Hematological: Reports: None Gastrointestinal: Reports: GERD Genitourinary: Reports: None Neuro/Psych: Reports: Migraine, Anxiety, Depression, Bipolar Disorder Musculoskeletal: Reports: None Cancer: Reports: None Other Pertinent Past Medical History: Dental Caries, Hypoglycemia, C-diff. - Surgical History General Surgical History: Reports: Other (dental extraions one week ago . PE TUBES , Recent fecal matter transplant ) - Family History Family History: Reports: Unknown - Social History Smoking Status: Current every day smoker, Light tobacco smoker Hx Substance Use: No (Frequent ER visits) Alcohol Screening: None Physical Exam - Physical Exam Appearance: Well-appearing, Ill-appearing, Well-nourished Ill-appearing: Mild Pain Distress: Mild Eyes: PRATIMA, EOMI, Conjunctiva clear ENT: Ears normal, Nose normal, Erythema Respiratory: Airway patent, Breath sounds clear, Breath sounds equal, Respirations nonlabored Cardiovascular: RRR, Pulses normal, No rub, No murmur GI/: Soft, Nontender, No masses, Bowel sounds normal, No Organomegaly Musculoskeletal: Normal strength, ROM intact, No edema, No calf tenderness Skin: Warm, Dry, Normal color Neurological: Sensation intact, Motor intact, Reflexes intact, Cranial nerves intact, Alert, Oriented Psychiatric: Affect appropriate, Mood appropriate Interpretation - Radiology Interpretation Radiology Interpretation By: Radiologist Radiology Results: Negative Exam Interpreted: CT Scan Critical Care Note - Critical Care Note Total Time (mins): 0 Course - Course Hematology/Chemistry: 12/26/16 21:15 12/26/16 21:15 Orders, Labs, Meds: Lab Review 12/26/16 12/26/16 21:15 21:35 WBC 6.01 RBC 4.50 L Hgb 13.8 L Hct 37.6 L MCV 83.6 MCH 30.7 MCHC 36.7 H RDW Coeff of [place] 12.1 Plt Count 170 Immature Gran % (Auto) 0.2 Neut % (Auto) 73.4 Lymph % (Auto) 13.5 [place] % (Auto) 10.3 H Eos % (Auto) 1.8 Baso % (Auto) 0.8 Immature Gran # (Auto) 0.0 Neut # 4.4 Lymph # 0.8 [place] # 0.6 Eos # 0.1 Baso # 0.1 Sodium 141 Potassium 4.5 Chloride 104 Carbon Dioxide 28 Anion Gap 13.5 BUN 8 Creatinine 0.78 Estimated GFR (MDRD) 119.00 BUN/Creatinine Ratio 10.25 Glucose 90 Calcium 9.6 Total Bilirubin 0.47 AST 25 ALT 39 Alkaline Phosphatase 47 L Total Protein 7.7 Albumin 4.5 Globulin 3.2 Albumin/Globulin Ratio 1.41 Amylase 60 Lipase 24 Urine Color Yellow Urine Clarity Clear Urine pH 7.5 Ur Specific [place] 1.015 Urine Protein Negative Urine Glucose (UA) Negative Urine Ketones Negative Urine Blood Negative Urine Nitrite Negative Urine Bilirubin Negative Urine Urobilinogen 0.2 Ur Leukocyte Esterase Negative Orders Category Date Time Status AMYLASE Stat LAB 12/26/16 21:15 Completed CBC W/ AUTO DIFF Stat LAB 12/26/16 21:15 Completed COMPREHENSIVE METABOLIC PANEL Stat LAB 12/26/16 21:15 Completed LIPASE Stat LAB 12/26/16 21:15 Completed UA [URINALYSIS C & S IF INDICATED] Stat LAB 12/26/16 21:35 Completed Lidocaine HCl [Lidocaine Viscous 2% 15 ml Ud] MEDS 12/26/16 22:23 Discontinued 15 ml [id number] ONCE STA CT ABD/PEL WO RENAL STONE PROT Stat RADS 12/26/16 21:[address] CHEST W/O CONTRAST Stat RADS 12/26/16 21:09 Completed Medications Discontinued Medications Generic Name Dose Route Start Last Admin Trade Name Freq PRN Reason Stop Dose Admin Lidocaine HCl 15 ml 12/26/16 22:23 12/26/16 22:28 Lidocaine Viscous 2% 15 Ml Ud [id number] 12/26/16 22:24 15 ml ONCE STA Administration Vital Signs: Temp Pulse Resp BP Pulse Ox 12/26/16 20:59 98.5 F 85 18 133/77 99 Departure - Departure Time of Disposition: 23:01 Disposition: HOME SELF-CARE Discharge Problem: Abdominal pain, Throat pain Instructions: Pharyngitis (ED), Abdominal Pain (ED) Condition: Fair Pt referred to PMD for follow-up: No Allergies/Adverse Reactions: Allergies dicyclomine [From Bentyl] Adverse Reaction (Unknown, Verified 12/07/16 09:50) amoxicillin [Amoxicillin] Adverse Reaction (Verified 12/07/16 09:50) Swelling clindamycin Adverse Reaction (Verified 12/07/16 09:50) Unknown states it is causing a bad bacteria to grow in his stomach per Dr. Jeremy trent Faviola dexamethasone [From Decadron] Adverse Reaction (Verified 12/07/16 09:50) ketorolac [From Toradol] Adverse Reaction (Verified 12/07/16 09:50) paroxetine HCl [From Paxil] Adverse Reaction (Verified 12/07/16 09:50) Penicillins Adverse Reaction (Verified 12/07/16 09:50) Swelling rofecoxib [From Vioxx] Adverse Reaction (Verified 12/07/16 09:50) Sulfa (Sulfonamide Antibiotics) Adverse Reaction (Verified 12/07/16 09:50) Rash sulfamethoxazole [From Bactrim] Adverse Reaction (Verified 12/07/16 09:50) Swelling tramadol Adverse Reaction (Verified 12/26/16 21:03) trimethoprim [From Bactrim] Adverse Reaction (Verified 12/07/16 09:50) Swelling swelling in throat Home Medications: Ambulatory Orders Albuterol Sulfate [Proair Hfa] 2 puff IH Q4H PRN 08/26/16 Lorazepam [Ativan] 0.5 mg PO TID 12/06/16 Vancomycin HCl 250 mg PO TID 12/06/16 Hydrocodone Bit/Acetaminophen [[place] 5-325] 5 mg PO Q8H 12/26/16 Disposition Discussed With: Patient
[2016-12-26 21:28] LABS: BASOPHILS # (AUTO) 0.1 K/uL (0-0.2); BASOPHILS % (AUTO) 0.8 % (0.0-3.0); EOSINOPHILS # (AUTO) 0.1 K/ul (0.0-0.7); EOSINOPHILS % (AUTO) 1.8 % (0.0-7.0); HEMATOCRIT 37.6 % (42.0-52.0); HEMOGLOBIN 13.8 g/dl (14.0-18.0); IMMATURE GRANULOCYTE % (AUTO) 0.2 % (0.0-5.0); LYMPHOCYTES # (AUTO) 0.8 K/uL (0.60-3.4); LYMPHOCYTES % (AUTO) 13.5 (10.0-50.0); MEAN CORPUSCULAR HEMOGLOBIN 30.7 pg (27.0-31.0); MEAN CORPUSCULAR HGB CONC 36.7 (31.8-35.4); MEAN CORPUSCULAR VOLUME 83.6 fl (80.0-94.0); MONOCYTES # (AUTO) 0.6 K/uL (0.4-2.0); MONOCYTES % (AUTO) 10.3 (0-10); NEUTROPHILS # (AUTO) 4.4 K/ul (2.0-6.9); NEUTROPHILS % (AUTO) 73.4; PLATELET COUNT 170 10^3/uL (140-440); WHITE BLOOD COUNT 6.01 K/ul (4.2-10.2)
[2016-12-26 21:46] LABS: ADD URINE MICROSCOPIC NO; BILIRUBIN,URINE Negative (NEGATIVE); KETONES,URINE Negative (NEGATIVE); LEUKOCYTE ESTERASE ,URINE Negative (NEGATIVE); NITRITE,URINE Negative (NEGATIVE); PH,URINE 7.5 (5-9); PROTEIN,URINE Negative (NEGATIVE); URINE, BLOOD Negative (NEGATIVE)
[2016-12-26 21:49] LABS: ALBUMIN 4.5 g/dL (3.4-5.0); ALBUMIN/GLOBULIN RATIO 1.41; ANION GAP 13.5; BILIRUBIN,TOTAL 0.47 mg/dL (0.00-1.20); BUN/CREATININE RATIO 10.25; CALCIUM 9.6 mg/dL (8.2-10.2); CREATININE 0.78 mg/dL (0.60-1.10); POTASSIUM 4.5 mmol/L (3.5-5.1); TOTAL PROTEIN 7.7 g/dL (6.4-8.2)
[2016-12-26] MEDS ORDERED: LIDOCAINE VISCOUS 2% 15 ML UD MUCOUSMEMB STA (22:23)
--- NOTE | 2016-12-26 22:43 | CT ---
Exam: CT of the chest without contrast History: Cough and shortness of breath Technique: [address] of the chest FINDINGS: The lung windows show no infiltrative opacities, suspicious nodules or masses. Single gr anulomatous calcification of the right upper lobe. Heart, great vessels and pericardium appear norm al. No acute findings of the chest wall soft tissues or bony thorax. No acute findings of the uppe r abdomen. Impression: 1. No significant abnormalities of the chest
--- NOTE | 2016-12-26 22:48 | CT ---
EXAM: CT abdomen pelvis without intravenous contrast 12/26/2016. Sagittal and coronal reformatted images obtained HISTORY: Left lower quadrant pain COMPARISON: None. FINDINGS: The liver and gallbladder show no acute process. The adrenal glands and kidneys show no acute process. The spleen and pancreas show no acute abnorma lity. There is no bowel obstruction. Normal appendix. Unremarkable urinary bladder. There is no free air or free fluid. No acute osseous abnormality IMPRESSION: 1. No urinary or bowel obstruction and normal appendix. 2. Large quantity of stool in the colon. Correlate for constipation 3. No acute inflammatory process identified within the abdomen or pelvis within the limitation of a noncontrast enhanced examination
== END 2016-12-26 23:20 | disposition home or self-care (01) ==
LOC: ED 20:59
DX: R10.12 Left upper quadrant pain (principal); R07.0 Pain in throat; F17.210 Nicotine dependence, cigarettes, uncomplicated; Z98.890 Other specified postprocedural states; Z79.899 Other long term (current) drug therapy
CPT/HCPCS: 36415; 74176; 80053; 81001; 82150; 83690; 85025; 99283

== ENCOUNTER 2017-01-07 22:43 | Outpatient (CLI) | END 2017-01-07 22:44 | disposition home or self-care (01) | LOC: LAB 22:43 | PROVIDERS: ATTEND Internal Medicine Infectious Disease | DX: A04.7 Enterocolitis due to Clostridium difficile (principal) | CPT/HCPCS: 87493 ==

== ENCOUNTER 2017-01-19 20:24 | Outpatient (CLI) | END 2017-01-19 20:25 | disposition home or self-care (01) | LOC: LAB 20:24 | PROVIDERS: ATTEND Internal Medicine Infectious Disease | DX: A04.7 Enterocolitis due to Clostridium difficile (principal) | CPT/HCPCS: 87493 ==

== ENCOUNTER 2017-01-25 23:57 | Emergency (ER) ==
[2017-01-26 00:07] VITALS: BP 145/81; TEMP 98.1; BMI 21.1
[2017-01-26] MEDS ORDERED: PROTONIX IV IVP STA (00:11)
[2017-01-26] MEDS ORDERED: SODIUM CHLORIDE 1,000 ML IV STA (00:11)
[2017-01-26] MEDS ORDERED: ZOFRAN 4 MG/2 ML IVP STA (00:11)
[2017-01-26 00:29] LABS: BASOPHILS # (AUTO) 0.1 K/uL (0-0.2); BASOPHILS % (AUTO) 0.9 % (0.0-3.0); EOSINOPHILS # (AUTO) 0.2 K/ul (0.0-0.7); EOSINOPHILS % (AUTO) 3.7 % (0.0-7.0); HEMATOCRIT 38.1 % (42.0-52.0); IMMATURE GRANULOCYTE % (AUTO) 0.4 % (0.0-5.0); LYMPHOCYTES # (AUTO) 2.3 K/uL (0.60-3.4); LYMPHOCYTES % (AUTO) 43.3 (10.0-50.0); MEAN CORPUSCULAR HEMOGLOBIN 30.5 pg (27.0-31.0); MEAN CORPUSCULAR HGB CONC 36.7 (31.8-35.4); MONOCYTES # (AUTO) 0.5 K/uL (0.4-2.0); MONOCYTES % (AUTO) 8.7 (0-10); NEUTROPHILS # (AUTO) 2.3 K/ul (2.0-6.9); PLATELET COUNT 177 10^3/uL (140-440); RED BLOOD COUNT 4.59 10^6/ul (4.70-6.10); WHITE BLOOD COUNT 5.41 K/ul (4.2-10.2)
[2017-01-26 00:44] LABS: BILIRUBIN,URINE Negative (NEGATIVE); KETONES,URINE Negative (NEGATIVE); LEUKOCYTE ESTERASE ,URINE Negative (NEGATIVE); NITRITE,URINE Negative (NEGATIVE); PH,URINE 8.5 (5-9); PROTEIN,URINE Negative (NEGATIVE); URINE, BLOOD Negative (NEGATIVE)
[2017-01-26 00:46] LABS: ADD URINE MICROSCOPIC NO
--- NOTE | 2017-01-26 00:48 | ED.PDOC ---
General ED Provider: Dr. DOUG GUADARRAMA Chief Complaint: Abdominal Pain Stated Complaint: Patient is a 26 year old male with a history of chronic C diff who comes to the ER with chronic abdominal pain that got worse 3 days ago now worse. He called his PCP who told him to come tot he ER. Time Seen by Physician: 00:26 Mode of Arrival: Walk-In Information Source: Patient Exam Limitations: No limitations Primary Care Provider: HANNAH REYNOLDS Nursing and Triage Documentation Reviewed and Agree: Yes GI Complaint Exam - Abdominal Pain Complaint/Exam Onset: Gradual Duration: 3 days Symptoms Are: Still present Timing: Constant Initial Severity: Moderate Current Severity: Moderate Location of Pain: Diffuse Radiates To: Denies: Chest, Back, Flank Character: Reports: Aching, Throbbing Aggravating: Reports: Movement Alleviating: Reports: None Associated Signs and Symptoms: Reports: Nausea, Diarrhea AAA Risk Factors: Reports: None Cardiac Risk Factors: Reports: None Testicular Torsion Risk Factors: Reports: None Surgical Obstruction Risk Factors: Reports: None Abdominal Findings: Absent: Pulsatile mass, Abdominal distention, Unequal femoral pulses, Rebound tenderness, Peritoneal signs, McBurney's Point tender, CVA Tenderness, Hernia, Inguinal swelling Differential Diagnoses: Irritable Bowel Syndrome, Other (c diff ) Review of Systems - Review Of Systems Constitutional: Reports: No symptoms Eyes: Reports: No symptoms Ears, Nose, Mouth, Throat: Reports: No symptoms Respiratory: Reports: No symptoms Cardiac: Reports: No symptoms GI: Reports: Abdominal pain, Diarrhea (x4 today ), Nausea, Poor appetite : Reports: No symptoms Musculoskeletal: Reports: No symptoms Skin: Reports: No symptoms Neurological: Reports: No symptoms Endocrine: Reports: No symptoms Hematologic/Lymphatic: Reports: No symptoms All Other Systems: Reviewed and Negative Past Medical History - Past Medical History Previously Healthy: No Endocrine: Reports: None Cardiovascular: Reports: Hypertension Respiratory: Reports: Asthma Hematological: Reports: None Gastrointestinal: Reports: GERD Genitourinary: Reports: None Neuro/Psych: Reports: Migraine, Anxiety, Depression, Bipolar Disorder Musculoskeletal: Reports: None Cancer: Reports: None Other Pertinent Past Medical History: Dental Caries, Hypoglycemia, C-diff. - Surgical History General Surgical History: Reports: Other (dental extraions one week ago . PE TUBES , Recent fecal matter transplant ) - Family History Family History: Reports: Unknown - Social History Smoking Status: Former smoker, Vaping Hx Substance Use: No (Frequent ER visits) Alcohol Screening: None - Immunizations Tetanus Shot up to Date: Yes Physical Exam - Physical Exam Appearance: Ill-appearing Ill-appearing: Mild Pain Distress: Severe Eyes: PRATIMA, EOMI, Conjunctiva clear ENT: Ears normal, Nose normal, Oropharynx normal Respiratory: Airway patent, Breath sounds clear, Breath sounds equal, Respirations nonlabored Cardiovascular: RRR, Pulses normal, No rub, No murmur GI/: Soft, Bowel sounds normal, Tender Musculoskeletal: Normal strength, ROM intact, No edema, No calf tenderness Skin: Warm, Dry, Normal color Neurological: Sensation intact, Motor intact, Reflexes intact, Cranial nerves intact, Alert, Oriented Psychiatric: Anxious Interpretation - Radiology Interpretation Radiology Interpretation By: Radiologist Radiology Results: Negative Exam Interpreted: CT Scan (abdomina and pelvis ) Re-Evaluation - Re-Evaluation Time of Re-Evaluation: 02:02 Status: Improved Critical Care Note - Critical Care Note Total Time (mins): 0 Course - Course Hematology/Chemistry: 01/26/17 00:25 01/26/17 00:25 Orders, Labs, Meds: Lab Review 01/26/17 01/26/17 00:25 00:36 WBC 5.41 RBC 4.59 L Hgb 14.0 Hct 38.1 L MCV 83.0 MCH 30.5 MCHC 36.7 H RDW Coeff of Steven 12.0 Plt Count 177 Immature Gran % (Auto) 0.4 Neut % (Auto) 43.0 Lymph % (Auto) 43.3 [place] % (Auto) 8.7 Eos % (Auto) 3.7 Baso % (Auto) 0.9 Immature Gran # (Auto) 0.0 Neut # 2.3 Lymph # 2.3 [place] # 0.5 Eos # 0.2 Baso # 0.1 Sodium 140 Potassium 4.1 Chloride 105 Carbon Dioxide 28 Anion Gap 11.1 BUN 8 Creatinine 0.87 Estimated GFR (MDRD) 104.00 BUN/Creatinine Ratio 9.19 Glucose 103 H Calcium 9.5 Total Bilirubin 0.69 AST 18 ALT 22 Alkaline Phosphatase 42 L Total Protein 7.4 Albumin 4.5 Globulin 2.9 Albumin/Globulin Ratio 1.55 Amylase 66 Lipase 32 Urine Color Yellow Urine Clarity Clear Urine pH 8.5 Ur Specific [place] 1.015 Urine Protein Negative Urine Glucose (UA) Negative Urine Ketones Negative Urine Blood Negative Urine Nitrite Negative Urine Bilirubin Negative Urine Urobilinogen 0.2 Ur Leukocyte Esterase Negative Orders Category Date Time Status ED IV/MEDIPORT/POWERPORT .ONCE EMERGENCY 01/26/17 00:11 Active AMYLASE Stat LAB 01/26/17 00:25 Completed CBC W/ AUTO DIFF Stat LAB 01/26/17 00:25 Completed COMPREHENSIVE METABOLIC PANEL Stat LAB 01/26/17 00:25 Completed LIPASE Stat LAB 01/26/17 00:25 Completed URINALYSIS C & S IF INDICATED Stat LAB 01/26/17 00:36 Completed 0.9 % Sodium Chloride [Saline Flush] MEDS 01/26/17 00:11 Ordered 1 syr IVF PRN PRN Morphine Sulfate [Morphine 4 mg/ml Syringe] MEDS 01/26/17 01:12 Discontinued 4 mg .ROUTE .STK-MED ONE Morphine Sulfate [Morphine 4 mg/ml Syringe] MEDS 01/26/17 01:09 Discontinued 4 mg IVP ONCE STA Ondansetron HCl/Pf [Zofran 4 mg/2 ml] MEDS 01/26/17 00:11 Discontinued 4 mg IVP ONCE STA Pantoprazole Sodium [Protonix IV] MEDS 01/26/17 00:11 Discontinued 40 mg IVP ONCE STA Sodium Chloride 0.9% [Sodium Chloride] 1,000 ml MEDS 01/26/17 00:[address] ABD/PEL WO RENAL STONE PROT Stat RADS 01/26/17 00:11 Completed Medications Generic Name Dose Route Start Last Admin Trade Name Freq PRN Reason Stop Dose Admin Sodium Chloride 1 syr 01/26/17 00:11 01/26/17 00:50 Saline Flush IVF 1 syr PRN PRN Administration To flush IV Discontinued Medications Generic Name Dose Route Start Last Admin Trade Name Freq PRN Reason Stop Dose Admin Sodium Chloride 1,000 mls @ 1,000 mls/hr 01/26/17 00:11 01/26/17 00:50 Sodium Chloride IV 01/26/17 01:10 1,000 mls/hr BOLUS STA Administration Morphine Sulfate 4 mg 01/26/17 01:09 01/26/17 01:20 Morphine 4 Mg/Ml Syringe IVP 01/26/17 01:10 4 mg ONCE STA Administration Ondansetron HCl 4 mg 01/26/17 00:11 01/26/17 00:53 Zofran 4 Mg/2 Ml IVP 01/26/17 00:12 4 mg ONCE STA Administration Pantoprazole Sodium 40 mg 01/26/17 00:11 01/26/17 00:54 Protonix Iv IVP 01/26/17 00:12 Not Given ONCE STA Vital Signs: Temp Pulse Resp BP Pulse Ox 01/25/17 23:58 98.1 F 78 20 145/81 H 100 Departure - Departure Time of Disposition: 02:01 Disposition: HOME SELF-CARE Discharge Problem: Abdominal pain Instructions: Abdominal Pain (ED) Condition: Stable Pt referred to PMD for follow-up: Yes Allergies/Adverse Reactions: Allergies dicyclomine [From Bentyl] Adverse Reaction (Unknown, Verified 12/07/16 09:50) amoxicillin [Amoxicillin] Adverse Reaction (Verified 12/07/16 09:50) Swelling clindamycin Adverse Reaction (Verified 12/07/16 09:50) Unknown states it is causing a bad bacteria to grow in his stomach per Dr. Jeremy trent [facility] dexamethasone [From Decadron] Adverse Reaction (Verified 12/07/16 09:50) ketorolac [From Toradol] Adverse Reaction (Verified 12/07/16 09:50) paroxetine HCl [From Paxil] Adverse Reaction (Verified 12/07/16 09:50) Penicillins Adverse Reaction (Verified 12/07/16 09:50) Swelling rofecoxib [From Vioxx] Adverse Reaction (Verified 12/07/16 09:50) Sulfa (Sulfonamide Antibiotics) Adverse Reaction (Verified 12/07/16 09:50) Rash sulfamethoxazole [From Bactrim] Adverse Reaction (Verified 12/07/16 09:50) Swelling tramadol Adverse Reaction (Verified 12/26/16 21:03) trimethoprim [From Bactrim] Adverse Reaction (Verified 12/07/16 09:50) Swelling swelling in throat Home Medications: Ambulatory Orders Albuterol Sulfate [Proair Hfa] 2 puff IH Q4H PRN 08/26/16 Lorazepam [Ativan] 0.5 mg PO TID PRN 12/06/16 Vancomycin HCl 250 mg PO TID 12/06/16 Hydrocodone Bit/Acetaminophen [[place] 5-325] 5 mg PO Q8H PRN 12/26/16 Divalproex Sodium [Depakote] 500 mg PO TID 01/26/17 Gabapentin 300 mg PO TID 01/26/17 Ranitidine HCl [Zantac] 150 mg PO BIDAC 01/26/17 Disposition Discussed With: Patient, Family
[2017-01-26] MEDS ORDERED: MORPHINE 4 MG/ML SYRINGE IVP STA (01:09)
[2017-01-26 01:11] LABS: ALBUMIN 4.5 g/dL (3.4-5.0); ALBUMIN/GLOBULIN RATIO 1.55; ANION GAP 11.1; BILIRUBIN,TOTAL 0.69 mg/dL (0.00-1.20); BUN/CREATININE RATIO 9.19; CALCIUM 9.5 mg/dL (8.2-10.2); CREATININE 0.87 mg/dL (0.60-1.10); POTASSIUM 4.1 mmol/L (3.5-5.1); TOTAL PROTEIN 7.4 g/dL (6.4-8.2)
[2017-01-26] MEDS ORDERED: MORPHINE 4 MG/ML SYRINGE ONE (01:12)
--- NOTE | 2017-01-26 01:50 | CT ---
EXAM: CT of the abdomen and pelvis without IV contrast. HISTORY: Abdominal pain. PROCEDURE: Contiguous axial CT images of the abdomen and pelvis without contrast with coronal and s agittal reformats. FINDINGS: The liver, gallbladder, pancreas, spleen, adrenal glands and kidneys are normal in appeara nce. The abdominal aorta is normal in appearance. The visualized loops of bowel and appendix are nor mal in appearance. No free fluid or free air in the abdomen or pelvis. The bladder is adequately f illed with no abnormality identified. The seminal vesicles and prostate gland are unremarkable. Th e bones and soft tissues are unremarkable. Impression: Negative CT of the abdomen and pelvis.
== END 2017-01-26 02:12 | disposition home or self-care (01) ==
LOC: ED 23:57
DX: R10.84 Generalized abdominal pain (principal); Z79.899 Other long term (current) drug therapy
CPT/HCPCS: 36415; 74176; 80053; 81001; 82150; 83690; 85025; 96374; 96375; 99283

== ENCOUNTER 2017-02-09 20:43 | Emergency (ER) ==
[2017-02-09] MEDS ORDERED: PHENERGAN 25 MG/ML VIAL IM STA (20:45)
[2017-02-09] MEDS ORDERED: DILAUDID 2 MG/ML SYRINGE IM STA (20:45)
[2017-02-09 20:48] VITALS: BP 135/70; TEMP 98.9; BMI 24.5
--- NOTE | 2017-02-09 20:48 | ED.PDOC ---
General ED Provider: Dr. MELO NATION-ER Chief Complaint: Headache Stated Complaint: analisa got a migraine--this is like the ones i usually get --its no diffrent--norco didnt help it--i go to pain management for my back Time Seen by Physician: 20:47 Mode of Arrival: Walk-In Information Source: Patient Primary Care Provider: HANNAH REYNOLDS Nursing and Triage Documentation Reviewed and Agree: Yes Neurological Complaint Exam - Headache Complaint/Exam Onset: Gradual Duration: several hours Symptoms Are: Still present Timing: Constant Episodes Lasting: Hours Worst Headache Ever: No Initial Severity: Mild Current Severity: Moderate Location: Diffuse Character: Reports: Dull, Throbbing, Typical headache, Migraine Aggravating: Reports: Bright lights Alleviating: Reports: None Associated Signs and Symptoms: Reports: Nausea. Denies: Dizziness, Seizure, Vomiting, Sinus pressure, Fever, Neck pain, Neck stiffness, Decreased LOC, Visual changes Related History: Reports: Similar episode (long hx of migraine mustafa) Related Surgical History: Reports: None SAH Risk Factors: Reports: None Meningitis Risk Factors: Reports: None SDH Risk Factors: Reports: Male Temporal Arteritis Risk Factors: Reports: Normal Head CT Within Last 12 Months: Yes (per patient hx) Fundoscopic Exam: Present: Normal Findings Papilledema Present: No Temporal Artery Tenderness: Present: None Sinus Tenderness: Present: None TMJ Tenderness: Present: None Meningeal Signs Positive: No Pain on Passive Flexion-Positive Kernig's: No ROM Limited In: No Limitiations Focal Weakness: Present: None Focal Sensory Loss: Present: None Gait: Normal Nystagmus Present: No Gag Reflex Present: Yes [id number]: Normal Findings Romberg Test Positive: No Babinski Sign: Negative Right, Negative Left Heel to Toe Normal: Yes Differential Diagnoses: Migraine Review of Systems - Review Of Systems Constitutional: Reports: No symptoms Eyes: Reports: No symptoms Ears, Nose, Mouth, Throat: Reports: No symptoms Respiratory: Reports: No symptoms Cardiac: Reports: No symptoms GI: Reports: Nausea : Reports: No symptoms Musculoskeletal: Reports: No symptoms Skin: Reports: No symptoms Neurological: Reports: Headache Endocrine: Reports: No symptoms Hematologic/Lymphatic: Reports: No symptoms All Other Systems: Reviewed and Negative Past Medical History - Past Medical History Previously Healthy: No Endocrine: Reports: None Cardiovascular: Reports: Hypertension Respiratory: Reports: Asthma Hematological: Reports: None Gastrointestinal: Reports: GERD Genitourinary: Reports: None Neuro/Psych: Reports: Migraine, Anxiety, Depression, Bipolar Disorder Musculoskeletal: Reports: None Cancer: Reports: None Other Pertinent Past Medical History: Dental Caries, Hypoglycemia, C-diff. - Surgical History General Surgical History: Reports: Other (dental extraions one week ago . PE TUBES , Recent fecal matter transplant ) - Family History Family History: Reports: Unknown - Social History Smoking Status: Former smoker, Vaping Hx Substance Use: No (Frequent ER visits) Alcohol Screening: None Lives: With family Physical Exam - Physical Exam Appearance: Well-appearing, No pain distress, Well-nourished Pain Distress: Moderate Eyes: PRATIMA, EOMI, Conjunctiva clear ENT: Ears normal, Nose normal, Oropharynx normal Neck: Supple Respiratory: Airway patent, Breath sounds clear, Breath sounds equal, Respirations nonlabored Cardiovascular: RRR, Pulses normal, No rub, No murmur GI/: Soft, Nontender, No masses, Bowel sounds normal, No Organomegaly Musculoskeletal: Normal strength, ROM intact, No edema, No calf tenderness Skin: Warm, Dry, Normal color Neurological: Sensation intact, Motor intact, Reflexes intact, Cranial nerves intact, Alert, Oriented Psychiatric: Affect appropriate, Mood appropriate Re-Evaluation - Re-Evaluation Time of Re-Evaluation: 21:15 Status: Improved Vital Signs Stable: Yes Pain Level: 1 Appearance: NAD Lungs: Clear Skin: Warm and Dry Neuro: Alert and Oriented X3 CV: RRR Critical Care Note - Critical Care Note Total Time (mins): 0 Course - Course Orders, Labs, Meds: Orders Category Date Time Status Hydromorphone HCl/Pf [Dilaudid 2 mg/ml Syringe] MEDS 02/09/17 20:45 Discontinued 2 mg IM ONCE STA Promethazine HCl [Phenergan 25 mg/ml Vial] MEDS 02/09/17 20:45 Discontinued 25 mg IM ONCE STA Medications Discontinued Medications Generic Name Dose Route Start Last Admin Trade Name Freq PRN Reason Stop Dose Admin Hydromorphone HCl 2 mg 02/09/17 20:45 Dilaudid 2 Mg/Ml Syringe IM 02/09/17 20:46 ONCE STA Promethazine HCl 25 mg 02/09/17 20:45 Phenergan 25 Mg/Ml Vial IM 02/09/17 20:46 ONCE STA Departure - Departure Time of Disposition: 20:49 Disposition: HOME SELF-CARE Discharge Problem: Migraine headache Qualifiers: Migraine type: unspecified Status migrainosus presence: without status migrainosus Intractability: not intractable Qualifier Code: (G43.909) Migraine, unspecified, not intractable, without status migrainosus Instructions: Migraine Headache (ED) Condition: Good Pt referred to PMD for follow-up: Yes Additional Instructions: f/u with pcp Allergies/Adverse Reactions: Allergies dicyclomine [From Bentyl] Adverse Reaction (Unknown, Verified 12/07/16 09:50) amoxicillin [Amoxicillin] Adverse Reaction (Verified 12/07/16 09:50) Swelling clindamycin Adverse Reaction (Verified 12/07/16 09:50) Unknown states it is causing a bad bacteria to grow in his stomach per Dr. Jeremy trent Faviola dexamethasone [From Decadron] Adverse Reaction (Verified 12/07/16 09:50) ketorolac [From Toradol] Adverse Reaction (Verified 12/07/16 09:50) paroxetine HCl [From Paxil] Adverse Reaction (Verified 12/07/16 09:50) Penicillins Adverse Reaction (Verified 12/07/16 09:50) Swelling rofecoxib [From Vioxx] Adverse Reaction (Verified 12/07/16 09:50) Sulfa (Sulfonamide Antibiotics) Adverse Reaction (Verified 12/07/16 09:50) Rash sulfamethoxazole [From Bactrim] Adverse Reaction (Verified 12/07/16 09:50) Swelling tramadol Adverse Reaction (Verified 12/26/16 21:03) trimethoprim [From Bactrim] Adverse Reaction (Verified 12/07/16 09:50) Swelling swelling in throat Home Medications: Ambulatory Orders Albuterol Sulfate [Proair Hfa] 2 puff IH Q4H PRN 08/26/16 Lorazepam [Ativan] 0.5 mg PO TID PRN 12/06/16 Vancomycin HCl 250 mg PO TID 12/06/16 Hydrocodone Bit/Acetaminophen [[place] 5-325] 5 mg PO Q8H PRN 12/26/16 Divalproex Sodium [Depakote] 500 mg PO TID 01/26/17 Gabapentin 300 mg PO TID 01/26/17 Ranitidine HCl [Zantac] 150 mg PO BIDAC 01/26/17 Disposition Discussed With: Patient
== END 2017-02-09 21:35 | disposition home or self-care (01) ==
LOC: ED 20:43
DX: G43.909 Migraine, unspecified, not intractable, without status migrainosus (principal); Z79.899 Other long term (current) drug therapy
CPT/HCPCS: 96372; 99283

== ENCOUNTER 2017-02-14 15:03 | Outpatient (CLI) | END 2017-02-14 15:04 | disposition home or self-care (01) | LOC: CAR 15:03 | PROVIDERS: ATTEND Psychiatry & Neurology Psychiatry | DX: Z79.899 Other long term (current) drug therapy (principal) ==

== ENCOUNTER 2017-02-18 01:16 | Emergency (ER) ==
[2017-02-18 01:24] VITALS: BP 128/75; TEMP 98.8; BMI 24.4
[2017-02-18] MEDS ORDERED: DILAUDID 1 MG/ML SYRINGE IM STA (01:41)
[2017-02-18] MEDS ORDERED: PHENERGAN 25 MG/ML VIAL IM STA (01:42)
--- NOTE | 2017-02-18 01:45 | ED.PDOC ---
General ED Provider: Dr. MELO NATION-ER Chief Complaint: Headache Stated Complaint: i have a migraine Time Seen by Physician: 01:20 Mode of Arrival: Walk-In Information Source: Patient Exam Limitations: No limitations Primary Care Provider: HANNAH REYNOLDS Nursing and Triage Documentation Reviewed and Agree: Yes Neurological Complaint Exam - Headache Complaint/Exam Onset: Gradual Duration: severall hours Symptoms Are: Still present Timing: Constant Worst Headache Ever: No Initial Severity: Mild Current Severity: Moderate Location: Diffuse Character: Reports: Dull, Throbbing, Typical headache, Migraine Aggravating: Reports: Bright lights Alleviating: Reports: None Associated Signs and Symptoms: Reports: Nausea. Denies: Dizziness, Seizure, Vomiting, Sinus pressure, Fever, Neck pain, Neck stiffness, Decreased LOC, Visual changes Related History: Reports: Similar episode Related Surgical History: Reports: None SAH Risk Factors: Reports: None Meningitis Risk Factors: Reports: None SDH Risk Factors: Reports: None Temporal Arteritis Risk Factors: Reports: Normal Head CT Within Last 12 Months: Yes Fundoscopic Exam: Present: Normal Findings Papilledema Present: No Temporal Artery Tenderness: Present: None Sinus Tenderness: Present: None TMJ Tenderness: Present: None Glascow Coma Scale (see protocol): 15 Meningeal Signs Positive: No Pain on Passive Flexion-Positive Kernig's: No ROM Limited In: No Limitiations Focal Weakness: Present: None Focal Sensory Loss: Present: None Gait: Normal Nystagmus Present: No Gag Reflex Present: Yes [id number]: Normal Findings Romberg Test Positive: No Babinski Sign: Negative Right, Negative Left Heel to Toe Normal: Yes Differential Diagnoses: Migraine Review of Systems - Review Of Systems Constitutional: Reports: No symptoms Eyes: Reports: No symptoms Ears, Nose, Mouth, Throat: Reports: No symptoms Respiratory: Reports: No symptoms Cardiac: Reports: No symptoms GI: Reports: Nausea : Reports: No symptoms Musculoskeletal: Reports: No symptoms Skin: Reports: No symptoms Neurological: Reports: Headache Endocrine: Reports: No symptoms Hematologic/Lymphatic: Reports: No symptoms All Other Systems: Reviewed and Negative Past Medical History - Past Medical History Previously Healthy: No Endocrine: Reports: None Cardiovascular: Reports: Hypertension Respiratory: Reports: Asthma Hematological: Reports: None Gastrointestinal: Reports: GERD Genitourinary: Reports: None Neuro/Psych: Reports: Migraine, Anxiety, Depression, Bipolar Disorder Musculoskeletal: Reports: None Cancer: Reports: None Other Pertinent Past Medical History: Dental Caries, Hypoglycemia, C-diff. - Surgical History General Surgical History: Reports: Other (dental extraions one week ago . PE TUBES , Recent fecal matter transplant ) - Family History Family History: Reports: Unknown - Social History Smoking Status: Former smoker, Vaping Hx Substance Use: No (Frequent ER visits) Alcohol Screening: None Lives: With family - Immunizations Tetanus Shot up to Date: Yes Physical Exam - Physical Exam Appearance: Well-appearing, No pain distress, Well-nourished Pain Distress: Moderate Eyes: PRATIMA, EOMI, Conjunctiva clear ENT: Ears normal, Nose normal, Oropharynx normal Neck: Supple Respiratory: Airway patent, Breath sounds clear, Breath sounds equal, Respirations nonlabored Cardiovascular: RRR, Pulses normal, No rub, No murmur GI/: Soft, Nontender, No masses, Bowel sounds normal, No Organomegaly Musculoskeletal: Normal strength, ROM intact, No edema, No calf tenderness Skin: Warm, Dry, Normal color Neurological: Sensation intact Psychiatric: Affect appropriate Re-Evaluation - Re-Evaluation Time of Re-Evaluation: 02:00 Status: Improved Vital Signs Stable: Yes Pain Level: 1 Appearance: NAD Lungs: Clear Skin: Warm and Dry Neuro: Alert and Oriented X3 CV: RRR Critical Care Note - Critical Care Note Total Time (mins): 0 Course - Course Orders, Labs, Meds: Orders Category Date Time Status Hydromorphone HCl [Dilaudid 1 mg/ml Syringe] MEDS 02/18/17 01:41 Stat 0.5 mg IM ONCE STA Promethazine HCl [Phenergan 25 mg/ml Vial] MEDS 02/18/17 01:42 Stat 25 mg IM ONCE STA Medications Generic Name Dose Route Start Last Admin Trade Name Freq PRN Reason Stop Dose Admin Hydromorphone HCl 0.5 mg 02/18/17 01:41 Dilaudid 1 Mg/Ml Syringe IM 02/18/17 01:42 ONCE STA Promethazine HCl 25 mg 02/18/17 01:42 Phenergan 25 Mg/Ml Vial IM 02/18/17 01:43 ONCE STA Vital Signs: Temp Pulse Resp BP Pulse Ox 02/18/17 01:16 98.8 F 92 H 20 128/75 100 Departure - Departure Time of Disposition: 01:45 Disposition: HOME SELF-CARE Discharge Problem: Migraine headache Qualifiers: Migraine type: unspecified Status migrainosus presence: without status migrainosus Intractability: not intractable Qualifier Code: (G43.909) Migraine, unspecified, not intractable, without status migrainosus Instructions: Migraine Headache (ED) Condition: Good Pt referred to PMD for follow-up: Yes Additional Instructions: f/u with dr reynolds Allergies/Adverse Reactions: Allergies dicyclomine [From Bentyl] Adverse Reaction (Unknown, Verified 02/18/17 01:24) amoxicillin [Amoxicillin] Adverse Reaction (Verified 02/18/17 01:24) Swelling clindamycin Adverse Reaction (Verified 02/18/17 01:24) Unknown states it is causing a bad bacteria to grow in his stomach per Dr. Jeremy trent Faviola dexamethasone [From Decadron] Adverse Reaction (Verified 02/18/17 01:24) ketorolac [From Toradol] Adverse Reaction (Verified 02/18/17 01:24) paroxetine HCl [From Paxil] Adverse Reaction (Verified 02/18/17 01:24) Penicillins Adverse Reaction (Verified 02/18/17 01:24) Swelling rofecoxib [From Vioxx] Adverse Reaction (Verified 02/18/17 01:24) Sulfa (Sulfonamide Antibiotics) Adverse Reaction (Verified 02/18/17 01:24) Rash sulfamethoxazole [From Bactrim] Adverse Reaction (Verified 02/18/17 01:24) Swelling tramadol Adverse Reaction (Verified 02/18/17 01:24) trimethoprim [From Bactrim] Adverse Reaction (Verified 02/18/17 01:24) Swelling swelling in throat Home Medications: Ambulatory Orders Albuterol Sulfate [Proair Hfa] 2 puff IH Q4H PRN 08/26/16 Lorazepam [Ativan] 0.5 mg PO TID PRN 12/06/16 Hydrocodone Bit/Acetaminophen [[place] 5-325] 5 mg PO Q8H PRN 12/26/16 Gabapentin 300 mg PO TID 01/26/17 Ranitidine HCl [Zantac] 150 mg PO BIDAC 01/26/17 Tizanidine HCl 4 mg PO QID PRN 02/09/17 Disposition Discussed With: Patient
== END 2017-02-18 02:18 | disposition home or self-care (01) ==
LOC: ED 01:16
DX: G43.909 Migraine, unspecified, not intractable, without status migrainosus (principal)
CPT/HCPCS: 96372; 99283

== ENCOUNTER 2017-02-22 01:49 | Emergency (ER) ==
[2017-02-22 01:49] VITALS: BMI 24.4
[2017-02-22 01:57] VITALS: BP 125/74; TEMP 98
[2017-02-22] MEDS ORDERED: DILAUDID 1 MG/ML SYRINGE IM STA (02:30)
[2017-02-22] MEDS ORDERED: PHENERGAN 25 MG/ML VIAL IM STA (02:30)
[2017-02-22 02:44] LABS: BASOPHILS # (AUTO) 0.1 K/uL (0-0.2); EOSINOPHILS # (AUTO) 0.2 K/ul (0.0-0.7); EOSINOPHILS % (AUTO) 2.5 % (0.0-7.0); HEMATOCRIT 40.2 % (42.0-52.0); HEMOGLOBIN 14.6 g/dl (14.0-18.0); IMMATURE GRANULOCYTE % (AUTO) 0.3 % (0.0-5.0); LYMPHOCYTES # (AUTO) 2.7 K/uL (0.60-3.4); LYMPHOCYTES % (AUTO) 43.2 (10.0-50.0); MEAN CORPUSCULAR HEMOGLOBIN 30.4 pg (27.0-31.0); MEAN CORPUSCULAR HGB CONC 36.3 (31.8-35.4); MEAN CORPUSCULAR VOLUME 83.6 fl (80.0-94.0); MONOCYTES # (AUTO) 0.5 K/uL (0.4-2.0); MONOCYTES % (AUTO) 8.6 (0-10); NEUTROPHILS # (AUTO) 2.8 K/ul (2.0-6.9); NEUTROPHILS % (AUTO) 44.4; PLATELET COUNT 221 10^3/uL (140-440); RED BLOOD COUNT 4.81 10^6/ul (4.70-6.10)
[2017-02-22 03:04] LABS: ALBUMIN 4.7 g/dL (3.4-5.0); ALBUMIN/GLOBULIN RATIO 1.38; ANION GAP 13.7; BILIRUBIN,TOTAL 0.48 mg/dL (0.00-1.20); BUN/CREATININE RATIO 16.04; CREATININE 0.81 mg/dL (0.60-1.10); POTASSIUM 3.7 mmol/L (3.5-5.1); TOTAL PROTEIN 8.1 g/dL (6.4-8.2)
[2017-02-22 03:21] LABS: ERYTHROCYTE SEDIMENTATION RATE 3 mm/hr (0-15); ESR INTERNAL QC INTERNAL QC VALID
--- NOTE | 2017-02-22 04:51 | ED.PDOC ---
General ED Provider: Dr. MELO NATION-ER Chief Complaint: Abdominal Pain Stated Complaint: im hurting and sick at my stomach Time Seen by Physician: 01:55 Mode of Arrival: Walk-In Information Source: Patient Exam Limitations: No limitations Primary Care Provider: HANNAH REYNOLDS Nursing and Triage Documentation Reviewed and Agree: Yes GI Complaint Exam - Abdominal Pain Complaint/Exam Onset: Gradual Duration: several hours Symptoms Are: Still present Timing: Constant Initial Severity: Mild Current Severity: Moderate Location of Pain: Diffuse Radiates To: Reports: Flank Character: Reports: Dull, Aching, Cramping Aggravating: Reports: Eating Alleviating: Reports: None Associated Signs and Symptoms: Reports: Back pain, Nausea. Denies: Diaphoresis , Fever, Cough, Chest pain, Dizziness, Constipation, Blood in stool, Dysuria, Urinary frequency, Decreased urine output, Decreased appetite, Discharge, Vomiting, Diarrhea, Decreased activity Abdominal Findings: Present: None Differential Diagnoses: Gastroenteritis, Pancreatitis, Ureteral Stone Review of Systems - Review Of Systems Constitutional: Reports: No symptoms Eyes: Reports: No symptoms Ears, Nose, Mouth, Throat: Reports: No symptoms Respiratory: Reports: No symptoms Cardiac: Reports: No symptoms GI: Reports: Abdominal pain, Nausea, Vomiting : Reports: No symptoms Musculoskeletal: Reports: No symptoms Skin: Reports: No symptoms Neurological: Reports: No symptoms Endocrine: Reports: No symptoms Hematologic/Lymphatic: Reports: No symptoms All Other Systems: Reviewed and Negative Past Medical History - Past Medical History Previously Healthy: No Endocrine: Reports: None Cardiovascular: Reports: Hypertension Respiratory: Reports: Asthma Hematological: Reports: None Gastrointestinal: Reports: GERD Genitourinary: Reports: None Neuro/Psych: Reports: Migraine, Anxiety, Depression, Bipolar Disorder Musculoskeletal: Reports: None Cancer: Reports: None Other Pertinent Past Medical History: Dental Caries, Hypoglycemia, C-diff. - Surgical History General Surgical History: Reports: Other (dental extraions one week ago . PE TUBES , Recent fecal matter transplant ) - Family History Family History: Reports: Unknown - Social History Smoking Status: Former smoker, Vaping Hx Substance Use: No (Frequent ER visits) Alcohol Screening: None - Immunizations Tetanus Shot up to Date: Yes Physical Exam - Physical Exam Appearance: Well-appearing, No pain distress, Well-nourished Pain Distress: Moderate Eyes: PRATIMA, EOMI, Conjunctiva clear ENT: Ears normal, Nose normal, Oropharynx normal Neck: Supple Respiratory: Airway patent, Breath sounds clear, Breath sounds equal, Respirations nonlabored Cardiovascular: RRR GI/: Soft Musculoskeletal: Normal strength, ROM intact, No edema, No calf tenderness Skin: Warm, Dry, Normal color Neurological: Sensation intact, Motor intact, Reflexes intact, Cranial nerves intact, Alert, Oriented Psychiatric: Affect appropriate, Mood appropriate Critical Care Note - Critical Care Note Total Time (mins): 0 Course - Course Hematology/Chemistry: 02/22/17 02:40 02/22/17 02:40 Orders, Labs, Meds: Lab Review 02/22/17 02:40 WBC 6.30 RBC 4.81 Hgb 14.6 Hct 40.2 L MCV 83.6 MCH 30.4 MCHC 36.3 H RDW Coeff of Steven 11.9 Plt Count 221 Immature Gran % (Auto) 0.3 Neut % (Auto) 44.4 Lymph % (Auto) 43.2 [place] % (Auto) 8.6 Eos % (Auto) 2.5 Baso % (Auto) 1.0 Immature Gran # (Auto) 0.0 Neut # 2.8 Lymph # 2.7 [place] # 0.5 Eos # 0.2 Baso # 0.1 ESR 3 Sodium 141 Potassium 3.7 Chloride 105 Carbon Dioxide 26 Anion Gap 13.7 BUN 13 Creatinine 0.81 Estimated GFR (MDRD) 113.00 BUN/Creatinine Ratio 16.04 Glucose 87 Calcium 10.0 Total Bilirubin 0.48 AST 28 ALT 32 Alkaline Phosphatase 48 L Total Protein 8.1 Albumin 4.7 Globulin 3.4 Albumin/Globulin Ratio 1.38 Amylase 66 Lipase 40 Orders Category Date Time Status AMYLASE Stat LAB 02/22/17 02:40 Completed CBC W/ AUTO DIFF Stat LAB 02/22/17 02:40 Completed COMPREHENSIVE METABOLIC PANEL Stat LAB 02/22/17 02:40 Completed ESR Stat LAB 02/22/17 02:40 Completed LIPASE Stat LAB 02/22/17 02:40 Completed Hydromorphone HCl [Dilaudid 1 mg/ml Syringe] MEDS 02/22/17 02:30 Discontinued 1 mg IM ONCE STA Promethazine HCl [Phenergan 25 mg/ml Vial] MEDS 02/22/17 02:30 Discontinued 25 mg IM ONCE STA Medications Discontinued Medications Generic Name Dose Route Start Last Admin Trade Name Freq PRN Reason Stop Dose Admin Hydromorphone HCl 1 mg 02/22/17 02:30 Dilaudid 1 Mg/Ml Syringe IM 02/22/17 02:31 ONCE STA Promethazine HCl 25 mg 02/22/17 02:30 Phenergan 25 Mg/Ml Vial IM 02/22/17 02:31 ONCE STA Vital Signs: Temp Pulse Resp BP Pulse Ox 02/22/17 01:54 98 F 91 H 20 125/74 98 Departure - Departure Time of Disposition: 04:51 Disposition: AMA Discharge Problem: Abdominal pain Instructions: Abdominal Pain (ED) Condition: Good Pt referred to PMD for follow-up: Yes Allergies/Adverse Reactions: Allergies dicyclomine [From Bentyl] Adverse Reaction (Unknown, Verified 02/22/17 01:57) amoxicillin [Amoxicillin] Adverse Reaction (Verified 02/22/17 01:57) Swelling clindamycin Adverse Reaction (Verified 02/22/17 01:57) Unknown states it is causing a bad bacteria to grow in his stomach per Dr. Jeremy trent Faviola dexamethasone [From Decadron] Adverse Reaction (Verified 02/22/17 01:57) ketorolac [From Toradol] Adverse Reaction (Verified 02/22/17 01:57) paroxetine HCl [From Paxil] Adverse Reaction (Verified 02/22/17 01:57) Penicillins Adverse Reaction (Verified 02/22/17 01:57) Swelling rofecoxib [From Vioxx] Adverse Reaction (Verified 02/22/17 01:57) Sulfa (Sulfonamide Antibiotics) Adverse Reaction (Verified 02/22/17 01:57) Rash sulfamethoxazole [From Bactrim] Adverse Reaction (Verified 02/22/17 01:57) Swelling tramadol Adverse Reaction (Verified 02/22/17 01:57) trimethoprim [From Bactrim] Adverse Reaction (Verified 02/22/17 01:57) Swelling swelling in throat Home Medications: Ambulatory Orders Albuterol Sulfate [Proair Hfa] 2 puff IH Q4H PRN 08/26/16 Lorazepam [Ativan] 0.5 mg PO TID PRN 12/06/16 Hydrocodone Bit/Acetaminophen [[place] 5-325] 5 mg PO Q8H PRN 12/26/16 Gabapentin 300 mg PO TID 01/26/17 Ranitidine HCl [Zantac] 150 mg PO BIDAC 01/26/17 Tizanidine HCl 4 mg PO QID PRN 02/09/17 Disposition Discussed With: Patient
== END 2017-02-22 03:10 | disposition left against medical advice (07) ==
LOC: ED 01:49
DX: R10.84 Generalized abdominal pain (principal); M54.9 Dorsalgia, unspecified; R11.2 Nausea with vomiting, unspecified; Z79.899 Other long term (current) drug therapy
CPT/HCPCS: 36415; 80053; 82150; 83690; 85025; 85651; 99284

== ENCOUNTER 2017-03-16 02:42 | Emergency (ER) ==
[2017-03-16 03:03] VITALS: BP 108/69; TEMP 98.2; BMI 24.5
--- NOTE | 2017-03-16 04:04 | CT ---
EXAM: CT of the head without contrast. HISTORY: Headache. PROCEDURE: Contiguous axial CT images of the head without contrast with coronal and sagittal reform ats. FINDINGS: The ventricles and basal cisterns are normal in size and configuration. No evidence of mass or midline shift. No intracranial hemorrhage or evidence of large vessel infarct. No extra-ax ial fluid collection. The paranasal sinuses and mastoid air cells are well-aerated. Impression: Negative CT of the head.
[2017-03-16] MEDS ORDERED: DILAUDID 1 MG/ML SYRINGE IM STA (04:15)
[2017-03-16] MEDS ORDERED: PHENERGAN 25 MG/ML VIAL IM STA (04:15)
--- NOTE | 2017-03-16 05:06 | ED.PDOC ---
General ED Provider: Dr. MELO NATION-ER Chief Complaint: Headache Stated Complaint: analisa got a migraine Time Seen by Physician: 03:00 Mode of Arrival: Walk-In Information Source: Patient Exam Limitations: No limitations Primary Care Provider: HANNAH REYNOLDS Nursing and Triage Documentation Reviewed and Agree: Yes Neurological Complaint Exam - Headache Complaint/Exam Onset: Gradual Duration: several hours Symptoms Are: Still present Timing: Constant Worst Headache Ever: No Initial Severity: Mild Current Severity: Moderate Location: Diffuse Character: Reports: Dull, Throbbing, Pressure, Typical headache, Migraine Alleviating: Reports: None Associated Signs and Symptoms: Reports: Nausea, Vomiting. Denies: Dizziness, Seizure, Sinus pressure, Neck pain, Neck stiffness, Decreased LOC, Visual changes Related History: Reports: Similar episode Related Surgical History: Reports: None SDH Risk Factors: Reports: Male Temporal Arteritis Risk Factors: Reports: Normal Head CT Within Last 12 Months: Yes Fundoscopic Exam: Present: Normal Findings Papilledema Present: No Temporal Artery Tenderness: Present: None Sinus Tenderness: Present: None TMJ Tenderness: Present: None Glascow Coma Scale (see protocol): 15 Meningeal Signs Positive: No Pain on Passive Flexion-Positive Kernig's: No ROM Limited In: No Limitiations Focal Weakness: Present: None Focal Sensory Loss: Present: None Gait: Normal Nystagmus Present: No Gag Reflex Present: No [id number]: Normal Findings Romberg Test Positive: No Babinski Sign: Negative Right, Negative Left Heel to Toe Normal: Yes Differential Diagnoses: Migraine Review of Systems - Review Of Systems Constitutional: Reports: No symptoms Eyes: Reports: No symptoms Ears, Nose, Mouth, Throat: Reports: No symptoms Respiratory: Reports: No symptoms Cardiac: Reports: No symptoms GI: Reports: Nausea : Reports: No symptoms Musculoskeletal: Reports: No symptoms Skin: Reports: No symptoms Neurological: Reports: Headache Endocrine: Reports: No symptoms Hematologic/Lymphatic: Reports: No symptoms All Other Systems: Reviewed and Negative Past Medical History - Past Medical History Previously Healthy: No Endocrine: Reports: None Cardiovascular: Reports: Hypertension Respiratory: Reports: Asthma Hematological: Reports: None Gastrointestinal: Reports: GERD Genitourinary: Reports: None Neuro/Psych: Reports: Migraine, Anxiety, Depression, Bipolar Disorder Musculoskeletal: Reports: None Cancer: Reports: None Other Pertinent Past Medical History: Dental Caries, Hypoglycemia, C-diff. - Surgical History General Surgical History: Reports: Other (dental extraions one week ago . PE TUBES , Recent fecal matter transplant ) - Family History Family History: Reports: Unknown - Social History Smoking Status: Former smoker, Vaping Hx Substance Use: No (Frequent ER visits) Alcohol Screening: None Lives: With family - Immunizations Tetanus Shot up to Date: Yes Physical Exam - Physical Exam Appearance: Well-appearing, No pain distress, Well-nourished Pain Distress: Moderate Eyes: PRATIMA, EOMI, Conjunctiva clear ENT: Ears normal, Nose normal, Oropharynx normal Neck: Supple Respiratory: Airway patent, Breath sounds clear, Breath sounds equal, Respirations nonlabored Cardiovascular: RRR, Pulses normal, No rub, No murmur GI/: Soft Musculoskeletal: Normal strength, ROM intact, No edema, No calf tenderness Skin: Warm, Dry, Normal color Neurological: Sensation intact, Motor intact, Reflexes intact, Cranial nerves intact, Alert, Oriented Psychiatric: Affect appropriate, Mood appropriate Interpretation - Radiology Interpretation Radiology Interpretation By: Radiologist Radiology Results: Negative Exam Interpreted: CT Scan Re-Evaluation - Re-Evaluation Time of Re-Evaluation: 05:05 Status: Improved Vital Signs Stable: Yes Pain Level: 0-sleeping Appearance: NAD Lungs: Clear Skin: Warm and Dry Neuro: Alert and Oriented X3 CV: RRR Critical Care Note - Critical Care Note Total Time (mins): 0 Course - Course Orders, Labs, Meds: Orders Category Date Time Status Hydromorphone HCl [Dilaudid 1 mg/ml Syringe] MEDS 03/16/17 04:15 Discontinued 1 mg IM ONCE STA Promethazine HCl [Phenergan 25 mg/ml Vial] MEDS 03/16/17 04:15 Discontinued 25 mg IM ONCE STA CT HEAD W/O CONTRAST Stat RADS 03/16/17 03:42 Completed Medications Discontinued Medications Generic Name Dose Route Start Last Admin Trade Name Freq PRN Reason Stop Dose Admin Hydromorphone HCl 1 mg 03/16/17 04:15 03/16/17 04:33 Dilaudid 1 Mg/Ml Syringe IM 03/16/17 04:16 1 mg ONCE STA Administration Promethazine HCl 25 mg 03/16/17 04:15 03/16/17 04:31 Phenergan 25 Mg/Ml Vial IM 03/16/17 04:16 25 mg ONCE STA Administration Vital Signs: Temp Pulse Resp BP Pulse Ox 07/09/17 02:56 98.2 F 96 H 20 108/69 98 Departure - Departure Time of Disposition: 05:06 Disposition: HOME SELF-CARE Discharge Problem: Migraine headache Qualifiers: Migraine type: without aura Status migrainosus presence: without status migrainosus Intractability: not intractable Qualifier Code: (G43.009) Migraine without aura, not intractable, without status migrainosus Instructions: Migraine Headache (ED) Condition: Good Pt referred to PMD for follow-up: Yes Additional Instructions: f/u pcp Allergies/Adverse Reactions: Allergies dicyclomine [From Bentyl] Adverse Reaction (Unknown, Verified 03/16/17 02:48) amoxicillin [Amoxicillin] Adverse Reaction (Verified 03/16/17 02:48) Swelling clindamycin Adverse Reaction (Verified 03/16/17 02:48) Unknown states it is causing a bad bacteria to grow in his stomach per Dr. Jeremy trent Faviola dexamethasone [From Decadron] Adverse Reaction (Verified 03/16/17 02:48) ketorolac [From Toradol] Adverse Reaction (Verified 03/16/17 02:48) paroxetine HCl [From Paxil] Adverse Reaction (Verified 03/16/17 02:48) Penicillins Adverse Reaction (Verified 03/16/17 02:48) Swelling rofecoxib [From Vioxx] Adverse Reaction (Verified 03/16/17 02:48) Sulfa (Sulfonamide Antibiotics) Adverse Reaction (Verified 03/16/17 02:48) Rash sulfamethoxazole [From Bactrim] Adverse Reaction (Verified 03/16/17 02:48) Swelling tramadol Adverse Reaction (Verified 03/16/17 02:48) trimethoprim [From Bactrim] Adverse Reaction (Verified 03/16/17 02:48) Swelling swelling in throat Home Medications: Ambulatory Orders Albuterol Sulfate [Proair Hfa] 2 puff IH Q4H PRN 08/26/16 Lorazepam [Ativan] 0.5 mg PO TID PRN 12/06/16 Hydrocodone Bit/Acetaminophen [[place] 5-325] 5 mg PO Q8H PRN 12/26/16 Gabapentin 300 mg PO TID 01/26/17 Ranitidine HCl [Zantac] 150 mg PO BIDAC 05/21/17 Tizanidine HCl 4 mg PO QID PRN 02/09/17 Disposition Discussed With: Patient, Family
== END 2017-03-16 05:26 | disposition home or self-care (01) ==
LOC: ED 02:42
DX: G43.009 Migraine without aura, not intractable, without status migrainosus (principal)
CPT/HCPCS: 96372; 99283

== ENCOUNTER 2017-04-26 14:38 | Emergency (ER) ==
[2017-04-26 14:43] VITALS: BP 124/75; TEMP 97.8; BMI 25.3
--- NOTE | 2017-04-26 15:08 | CT ---
EXAM: CT lumbar spine without contrast HISTORY: Low back pain with radiculopathy TECHNIQUE: Multi-slice transaxial helical with coronal and sagittal reformatted views. COMPARISON: 09/13/2016 FINDINGS: The visualized vertebral body heights and intervertebral disc spaces appear preserved. There is no spondylolisthesis or spondylolysis. No evidence of displaced cervical spine fracture is seen. No si gnificant central canal or neural foraminal stenosis is seen. The normal lumbar lordosis is maintai addi. The visualized pelvis and retroperitoneum appear unremarkable. Bilateral sacroiliac joints appear p reserved. IMPRESSION: Unremarkable CT of the lumbar spine. No significant central canal or neural foraminal stenosis.
--- NOTE | 2017-04-26 15:16 | ED.PDOC ---
General ED Provider: Dr. MELO NATION-ER Chief Complaint: Back Pain Stated Complaint: my back hurts to move--its going down the legs Time Seen by Physician: 14:50 Mode of Arrival: Walk-In Information Source: Patient Exam Limitations: No limitations Primary Care Provider: HANNAH REYNOLDS Nursing and Triage Documentation Reviewed and Agree: Yes Musculoskeletal Complaint Exam - Back Pain Complaint/Exam Mechanism of Injury: Reports: No known trauma Onset/Duration: several days Symptoms Are: Still present Timing: Constant Episodes Lasting: Days Initial Severity: Mild Current Severity: Moderate Location: Reports: Discrete Character: Reports: Dull, Aching, Throbbing, Spasmodic Aggravating: Reports: Movements, Lifting, Bending, Walking Alleviating: Reports: None Associated Signs and Symptoms: Denies: Swelling, Redness, Bruising, Fever, Weakness, Numbness, Tingling, Abdominal pain, Flank pain, Bladder incontinence, Bowel incontinence, Weight loss, Pain with weight bearing Focal Tenderness: Yes Paraspinal Muscle Tenderness: Yes Paraspinal Muscle Spasm: Yes Scoliosis: No Lordosis: No Kyphosis: No SLR Test: Right Negative, Left Negative Hip Motion Testing Pain: Right Negative Focal Weakness: Present: None Focal Sensory Loss: Present: None Gait: Present: Abnormal Differential Diagnoses: Herniated Disk, Strain, Sprain Review of Systems - Review Of Systems Constitutional: Reports: No symptoms Eyes: Reports: No symptoms Ears, Nose, Mouth, Throat: Reports: No symptoms Respiratory: Reports: No symptoms Cardiac: Reports: No symptoms GI: Reports: No symptoms : Reports: No symptoms Musculoskeletal: Reports: Back pain, Muscle pain Skin: Reports: No symptoms Neurological: Reports: No symptoms Endocrine: Reports: No symptoms Hematologic/Lymphatic: Reports: No symptoms All Other Systems: Reviewed and Negative Past Medical History - Past Medical History Previously Healthy: No Endocrine: Reports: None Cardiovascular: Reports: Hypertension Respiratory: Reports: Asthma Hematological: Reports: None Gastrointestinal: Reports: GERD Genitourinary: Reports: None Neuro/Psych: Reports: Migraine, Anxiety, Depression, Bipolar Disorder Musculoskeletal: Reports: None Cancer: Reports: None Other Pertinent Past Medical History: Dental Caries, Hypoglycemia, C-diff. - Surgical History General Surgical History: Reports: Other (dental extraions one week ago . PE TUBES , Recent fecal matter transplant ) - Family History Family History: Reports: Unknown - Social History Smoking Status: Former smoker, Vaping Hx Substance Use: No (Frequent ER visits) Alcohol Screening: None Lives: With family - Immunizations Tetanus Shot up to Date: Yes Physical Exam - Physical Exam Appearance: Well-appearing Pain Distress: Moderate Eyes: PRATIMA, EOMI, Conjunctiva clear ENT: Ears normal, Nose normal, Oropharynx normal Neck: Supple Respiratory: Airway patent Cardiovascular: RRR, Pulses normal, No rub, No murmur GI/: Soft, Nontender, No masses, Bowel sounds normal, No Organomegaly Musculoskeletal: Normal strength, ROM intact, No edema, No calf tenderness Skin: Warm, Dry, Normal color Neurological: Sensation intact, Motor intact, Reflexes intact, Cranial nerves intact, Alert, Oriented Psychiatric: Affect appropriate Critical Care Note - Critical Care Note Total Time (mins): 0 Course - Course Orders, Labs, Meds: Orders Category Date Time Status CT LUMBAR SPINE W/O CONTRAST Stat RADS 04/26/17 14:45 Completed Vital Signs: Temp Pulse Resp BP Pulse Ox 04/26/17 14:39 97.8 F 79 20 124/75 97 Departure - Departure Time of Disposition: 15:16 Disposition: HOME SELF-CARE Discharge Problem: Backache Instructions: Acute Low Back Pain (ED) Condition: Good Pt referred to PMD for follow-up: Yes Additional Instructions: gabapentin 100mg tid for pain #21--f/u with pcp Allergies/Adverse Reactions: Allergies dicyclomine [From Bentyl] Adverse Reaction (Unknown, Verified 04/26/17 14:43) amoxicillin [Amoxicillin] Adverse Reaction (Verified 04/26/17 14:43) Swelling clindamycin Adverse Reaction (Verified 04/26/17 14:43) Unknown states it is causing a bad bacteria to grow in his stomach per Dr. Jeremy trent Faviola dexamethasone [From Decadron] Adverse Reaction (Verified 04/26/17 14:43) ketorolac [From Toradol] Adverse Reaction (Verified 04/26/17 14:43) paroxetine HCl [From Paxil] Adverse Reaction (Verified 04/26/17 14:43) Penicillins Adverse Reaction (Verified 04/26/17 14:43) Swelling rofecoxib [From Vioxx] Adverse Reaction (Verified 04/26/17 14:43) Sulfa (Sulfonamide Antibiotics) Adverse Reaction (Verified 04/26/17 14:43) Rash sulfamethoxazole [From Bactrim] Adverse Reaction (Verified 04/26/17 14:43) Swelling tramadol Adverse Reaction (Verified 04/26/17 14:43) trimethoprim [From Bactrim] Adverse Reaction (Verified 04/26/17 14:43) Swelling swelling in throat Home Medications: Ambulatory Orders Albuterol Sulfate [Proair Hfa] 2 puff IH Q4H PRN 08/26/16 Lorazepam [Ativan] 0.5 mg PO TID PRN 12/06/16 Ranitidine HCl [Zantac] 150 mg PO BIDAC 01/26/17 Disposition Discussed With: Patient
== END 2017-04-26 15:24 | disposition home or self-care (01) ==
LOC: ED 14:38
DX: M54.5 Low back pain (principal)
CPT/HCPCS: 99284

== ENCOUNTER 2017-05-21 15:07 | Outpatient (CLI) ==
--- NOTE | 2017-05-22 03:20 | MRI ---
EXAM: MRI lumbar spine without IV contrast. DATE: 05/21/2017. HISTORY: Lumbar back pain. TECHNIQUE: Sagittal and axial T1W and T2W sequences of the lumbar spine along with sagittal IR and c oronal T2W sequences were obtained using 1.2 Юлия magnet. No IV contrast. COMPARISON: LS spine series 05/16/2017. CT L-spine 04/26/2017. MRI L-spine 09/13/2016. FINDINGS: There are five [id number] lumbar vertebra. Slight leftward curvature of the lumbar s pine is redemonstrated. No acute lumbar fracture, subluxation, osseous malignancy, or pars interarti cularis defect is identified. Lumbar vertebra are normal in height. Bone marrow signal is normal. Tiny, chronic Schmorl's nodes are seen at T11 and T12. Mild disc desiccation and minor disc space na rrowing are present at L1-2. Remaining intervertebral discs are normal in height and signal. No sac ral fracture or stress reaction is apparent. SI joints are unremarkable. Conus medullaris terminate s at L1 inferior endplate. Visible spinal cord is normal. No retroperitoneal lymphadenopathy, paraspinal mass, or aortic aneurysm is detected in the paraspinal musculature is symmetric bilaterally. Visible portions of the liver, spleen, gallbladder, left adre nal gland, and kidneys are normal. No bowel obstruction or neoplasm is evident. Segmental analysis: T12-L1: Normal. L1-2: Minimal posterior disc bulge does not cause central stenosis or foraminal stenosis. L2-3: Normal. L3-4: Normal. L4-5: Normal. L5-S1: Minimal posterior disc bulge and minor left facet arthropathy cause minimal left foraminal en croachment inferiorly. IMPRESSIONS: 1. L-spine minor DDD and facet arthropathy. 2. No lumbar central canal stenosis. 3. Minor left foraminal narrowing at L5-S1. No definitive nerve root compression.
== END 2017-05-21 15:08 | disposition home or self-care (01) ==
LOC: RAD 15:07
PROVIDERS: ATTEND Family Medicine
DX: S39.92XS Unspecified injury of lower back, sequela (principal)

== ENCOUNTER 2017-06-13 23:34 | Emergency (ER) ==
[2017-06-13 23:34] VITALS: BMI 25.3
[2017-06-13 23:45] VITALS: BP 120/77; TEMP 97.7
[2017-06-13] MEDS ORDERED: PHENERGAN 25 MG/ML VIAL IM STA (23:55)
[2017-06-13] MEDS ORDERED: DILAUDID 2 MG/ML SYRINGE IM STA (23:55)
--- NOTE | 2017-06-13 23:59 | ED.PDOC ---
General ED Provider: Dr. MELO NATION-ER Chief Complaint: Headache Stated Complaint: analisa got a bad migraine--im nauseated --this is like my usual mustafa Time Seen by Physician: 23:56 Mode of Arrival: Walk-In Information Source: Patient Exam Limitations: No limitations Primary Care Provider: DELLA REYNOLDS Nursing and Triage Documentation Reviewed and Agree: Yes Neurological Complaint Exam - Headache Complaint/Exam Onset: Gradual Duration: several hours Symptoms Are: Still present Timing: Constant Worst Headache Ever: No Initial Severity: Mild Current Severity: Moderate Location: Diffuse Character: Reports: Dull, Throbbing, Typical headache, Migraine Aggravating: Reports: Bright lights Alleviating: Reports: None Associated Signs and Symptoms: Reports: Nausea, Vomiting, Neck pain. Denies: Dizziness, Seizure, Sinus pressure, Fever, Neck stiffness, Decreased LOC, Visual changes Related History: Reports: Similar episode. Denies: Recent trauma, Remote trauma Related Surgical History: Reports: None SAH Risk Factors: Reports: None Meningitis Risk Factors: Reports: None SDH Risk Factors: Reports: Male Temporal Arteritis Risk Factors: Reports: Normal Head CT Within Last 12 Months: Yes Fundoscopic Exam: Present: Normal Findings Papilledema Present: No Temporal Artery Tenderness: Present: None Sinus Tenderness: Present: None Glascow Coma Scale (see protocol): 15 Meningeal Signs Positive: No Pain on Passive Flexion-Positive Kernig's: No ROM Limited In: No Limitiations Focal Weakness: Present: None Focal Sensory Loss: Present: None Gait: Normal Nystagmus Present: No Gag Reflex Present: No [id number]: Normal Findings Romberg Test Positive: No Babinski Sign: Negative Right, Negative Left Heel to Toe Normal: Yes Differential Diagnoses: Migraine Review of Systems - Review Of Systems Constitutional: Reports: No symptoms Eyes: Reports: No symptoms Ears, Nose, Mouth, Throat: Reports: No symptoms Respiratory: Reports: No symptoms Cardiac: Reports: No symptoms GI: Reports: No symptoms : Reports: No symptoms Musculoskeletal: Reports: No symptoms Skin: Reports: No symptoms Neurological: Reports: Headache Endocrine: Reports: No symptoms Hematologic/Lymphatic: Reports: No symptoms All Other Systems: Reviewed and Negative Past Medical History - Past Medical History Previously Healthy: No Endocrine: Reports: None Cardiovascular: Reports: Hypertension Respiratory: Reports: Asthma Hematological: Reports: None Gastrointestinal: Reports: GERD Genitourinary: Reports: None Neuro/Psych: Reports: Migraine, Anxiety, Depression, Bipolar Disorder Musculoskeletal: Reports: None Cancer: Reports: None Other Pertinent Past Medical History: Dental Caries, Hypoglycemia, C-diff. - Surgical History General Surgical History: Reports: Other (dental extraions one week ago . PE TUBES , Recent fecal matter transplant ) - Family History Family History: Reports: Unknown - Social History Smoking Status: Former smoker, Vaping Hx Substance Use: No (Frequent ER visits) Alcohol Screening: None - Immunizations Tetanus Shot up to Date: Yes Physical Exam - Physical Exam Appearance: Well-appearing, No pain distress, Well-nourished Pain Distress: Moderate Eyes: PRATIMA ENT: Ears normal, Nose normal, Oropharynx normal Neck: Supple Respiratory: Airway patent, Breath sounds clear, Breath sounds equal, Respirations nonlabored Cardiovascular: RRR, Pulses normal, No rub, No murmur GI/: Soft, Nontender, No masses, Bowel sounds normal, No Organomegaly Musculoskeletal: Normal strength Skin: Warm, Dry, Normal color Neurological: Sensation intact Psychiatric: Affect appropriate, Mood appropriate Re-Evaluation - Re-Evaluation Time of Re-Evaluation: 00:25 Status: Improved Vital Signs Stable: Yes Pain Level: 1 Appearance: NAD Lungs: Clear Skin: Warm and Dry Neuro: Alert and Oriented X3 CV: RRR Critical Care Note - Critical Care Note Total Time (mins): 0 Course - Course Orders, Labs, Meds: Orders Category Date Time Status Hydromorphone HCl/Pf [Dilaudid 2 mg/ml Syringe] MEDS 06/13/17 23:55 Stat 2 mg IM ONCE STA Promethazine HCl [Phenergan 25 mg/ml Vial] MEDS 06/13/17 23:55 Stat 25 mg IM ONCE STA Medications Generic Name Dose Route Start Last Admin Trade Name Freq PRN Reason Stop Dose Admin Hydromorphone HCl 2 mg 06/13/17 23:55 Dilaudid 2 Mg/Ml Syringe IM 06/13/17 23:56 ONCE STA Promethazine HCl 25 mg 06/13/17 23:55 Phenergan 25 Mg/Ml Vial IM 06/13/17 23:56 ONCE STA Vital Signs: Temp Pulse Resp BP Pulse Ox 06/13/17 23:37 97.7 F 67 20 120/77 97 Departure - Departure Time of Disposition: 00:01 Disposition: HOME SELF-CARE Discharge Problem: Migraine Qualifiers: Migraine type: unspecified Status migrainosus presence: without status migrainosus Intractability: not intractable Qualified Code(s): G43.909 - Migraine, unspecified, not intractable, without status migrainosus Instructions: Migraine Headache (ED) Condition: Good Pt referred to PMD for follow-up: Yes Additional Instructions: f/u with pcp Allergies/Adverse Reactions: Allergies dicyclomine [From Bentyl] Adverse Reaction (Unknown, Verified 06/13/17 23:43) amoxicillin [Amoxicillin] Adverse Reaction (Verified 06/13/17 23:43) Swelling clindamycin Adverse Reaction (Verified 06/13/17 23:43) Unknown states it is causing a bad bacteria to grow in his stomach per Dr. Jeremy trent Faviola dexamethasone [From Decadron] Adverse Reaction (Verified 06/13/17 23:43) ketorolac [From Toradol] Adverse Reaction (Verified 06/13/17 23:43) paroxetine HCl [From Paxil] Adverse Reaction (Verified 06/13/17 23:43) Penicillins Adverse Reaction (Verified 06/13/17 23:43) Swelling rofecoxib [From Vioxx] Adverse Reaction (Verified 06/13/17 23:43) Sulfa (Sulfonamide Antibiotics) Adverse Reaction (Verified 06/13/17 23:43) Rash sulfamethoxazole [From Bactrim] Adverse Reaction (Verified 06/13/17 23:43) Swelling tramadol Adverse Reaction (Verified 06/13/17 23:43) trimethoprim [From Bactrim] Adverse Reaction (Verified 06/13/17 23:43) Swelling swelling in throat Home Medications: Ambulatory Orders Albuterol Sulfate [Proair Hfa] 2 puff IH Q4H PRN 08/26/16 Ranitidine HCl [Zantac] 150 mg PO BIDAC 01/26/17 Disposition Discussed With: Patient, Family
== END 2017-06-14 00:19 | disposition home or self-care (01) ==
LOC: ED 23:34
DX: G43.909 Migraine, unspecified, not intractable, without status migrainosus (principal)
CPT/HCPCS: 96372; 99282

== ENCOUNTER 2017-06-17 15:14 | Emergency (ER) ==
[2017-06-17 15:17] VITALS: BP 142/90; TEMP 100.2; BMI 24.4
--- NOTE | 2017-06-17 15:57 | DI ---
Exam: Three x-rays of the right hand. Comparison: None available. Reason for exam: Trauma. FINDINGS: No acute fracture or malalignment. The joint spaces are well maintained. No unexplained calcific soft tissue densities or radiopaque retained foreign bodies. The cortices appear intact. Impression: No acute fracture or malalignment in the right hand.
--- NOTE | 2017-06-17 15:57 | DI ---
Exam: Three x-rays of the right wrist. Comparison: None available. Reason for exam: Trauma. FINDINGS: No acute fracture or malalignment. The joint spaces are well maintained. No unexplained calcific soft tissue densities or radiopaque retained foreign bodies. The scaphoid appears intact. Impression: No acute fracture or malalignment in the right wrist
--- NOTE | 2017-06-17 16:28 | ED.PDOC ---
General ED Provider: Dr. JOAN LAWLER Chief Complaint: Hand Pain/Injury Stated Complaint: hand wrist pain right side Time Seen by Physician: 15:20 (seepunched a wall) Mode of Arrival: Walk-In Information Source: Patient Exam Limitations: No limitations Primary Care Provider: DELLA REYNOLDS Nursing and Triage Documentation Reviewed and Agree: Yes Musculoskeletal Complaint Exam - Hand/Wrist Complaint/Exam Location of Pain: Reports: Right, Hand, Wrist Mechanism of Injury: Reports: Trauma Onset/Duration: 1 day ago Symptoms Are: Still present Onset of Pain: Reports: Hours Initial Severity: Moderate Current Severity: Moderate Location: Reports: Discrete Character: Reports: Aching, Throbbing, Spasmodic, Unable to describe Aggravating: Reports: Movement Associated Signs and Symptoms: Reports: Swelling, Redness, Bruising. Denies: Fever, Weakness, Numbness, Tingling Dominant Hand: Right Related Surgical History: Reports: None Hand/Wrist Findings: Present: Swelling Tenderness: Present: Radius, Ulna, Carpal, Metacarpal. Absent: Snuff box Differential Diagnoses: Closed Fracture, Sprain, Strain Review of Systems - Review Of Systems Constitutional: Reports: No symptoms Eyes: Reports: No symptoms Ears, Nose, Mouth, Throat: Reports: No symptoms Respiratory: Reports: No symptoms Cardiac: Reports: No symptoms GI: Reports: No symptoms : Reports: No symptoms Musculoskeletal: Reports: Joint pain Skin: Reports: No symptoms Neurological: Reports: No symptoms Endocrine: Reports: No symptoms Hematologic/Lymphatic: Reports: No symptoms All Other Systems: Reviewed and Negative Past Medical History - Past Medical History Previously Healthy: No Endocrine: Reports: None Cardiovascular: Reports: Hypertension Respiratory: Reports: Asthma Hematological: Reports: None Gastrointestinal: Reports: GERD Genitourinary: Reports: None Neuro/Psych: Reports: Migraine, Anxiety, Depression, Bipolar Disorder Musculoskeletal: Reports: None Cancer: Reports: None Other Pertinent Past Medical History: Dental Caries, Hypoglycemia, C-diff. - Surgical History General Surgical History: Reports: Other (dental extraions one week ago . PE TUBES , Recent fecal matter transplant ) - Family History Family History: Reports: Unknown - Social History Smoking Status: Former smoker, Vaping Hx Substance Use: No (Frequent ER visits) Alcohol Screening: None Physical Exam - Physical Exam Appearance: Well-appearing, No pain distress, Well-nourished Eyes: PRATIMA, EOMI, Conjunctiva clear ENT: Ears normal, Nose normal, Oropharynx normal Respiratory: Airway patent, Breath sounds clear, Breath sounds equal, Respirations nonlabored Cardiovascular: RRR, Pulses normal, No rub, No murmur GI/: Soft, Nontender, No masses, Bowel sounds normal, No Organomegaly Musculoskeletal: Normal strength, ROM intact, No edema, No calf tenderness Skin: Warm, Dry, Normal color Neurological: Sensation intact, Motor intact, Reflexes intact, Cranial nerves intact, Alert, Oriented Psychiatric: Affect appropriate, Mood appropriate Critical Care Note - Critical Care Note Total Time (mins): 0 Course - Course Orders, Labs, Meds: Orders Category Date Time Status HAND, RIGHT 3 VIEWS Stat RADS 06/17/17 15:30 Completed WRIST, RIGHT 3 VIEWS Stat RADS 06/17/17 15:30 Completed Vital Signs: Temp Pulse Resp BP Pulse Ox 06/17/17 15:15 100.2 F H 86 16 142/90 H 98 Departure - Departure Time of Disposition: 16:29 Disposition: HOME SELF-CARE Discharge Problem: Injury of hand, Hand pain Instructions: Abrasion (ED), Sprain (ED) Condition: Good Pt referred to PMD for follow-up: Yes Additional Instructions: Please call your Family Physician as soon as possible to schedule a follow-up appointment. Allergies/Adverse Reactions: Allergies dicyclomine [From Bentyl] Adverse Reaction (Unknown, Verified 06/17/17 15:17) amoxicillin [Amoxicillin] Adverse Reaction (Verified 06/17/17 15:17) Swelling clindamycin Adverse Reaction (Verified 06/17/17 15:17) Unknown states it is causing a bad bacteria to grow in his stomach per Dr. Jeremy Salmeron dexamethasone [From Decadron] Adverse Reaction (Verified 06/17/17 15:17) ketorolac [From Toradol] Adverse Reaction (Verified 06/17/17 15:17) paroxetine HCl [From Paxil] Adverse Reaction (Verified 06/17/17 15:17) Penicillins Adverse Reaction (Verified 06/17/17 15:17) Swelling rofecoxib [From Vioxx] Adverse Reaction (Verified 06/17/17 15:17) Sulfa (Sulfonamide Antibiotics) Adverse Reaction (Verified 06/17/17 15:17) Rash sulfamethoxazole [From Bactrim] Adverse Reaction (Verified 06/17/17 15:17) Swelling tramadol Adverse Reaction (Verified 06/17/17 15:17) trimethoprim [From Bactrim] Adverse Reaction (Verified 06/17/17 15:17) Swelling swelling in throat Home Medications: Ambulatory Orders Albuterol Sulfate [Proair Hfa] 2 puff IH Q4H PRN 08/26/16 Ranitidine HCl [Zantac] 150 mg PO BIDAC 01/26/17
== END 2017-06-17 16:41 | disposition home or self-care (01) ==
LOC: ED 15:14
DX: S69.91XA Unspecified injury of right wrist, hand and finger(s), initial encounter (principal); W22.8XXA Striking against or struck by other objects, initial encounter
CPT/HCPCS: 99283

== ENCOUNTER 2017-06-20 10:40 | Emergency (ER) ==
[2017-06-20 10:44] VITALS: BP 139/79; TEMP 97.6; BMI 25.3
--- NOTE | 2017-06-20 11:03 | ED.PDOC ---
General ED Provider: Dr. FRANCA HILTON Chief Complaint: Urinary Problem Stated Complaint: Abd pain, nausea and vomitting x 3-4 days, low back pain and burning with urination x 2 days. Chills but no fever. No diarrhea. No other symptoms. Time Seen by Physician: 10:57 Mode of Arrival: Walk-In Information Source: Patient Exam Limitations: No limitations Primary Care Provider: DELLA REYNOLDS Nursing and Triage Documentation Reviewed and Agree: Yes Complaint Exam - Complaint/Exam Patient Complains of: Reports: Dysuria (burning w/urination, low back pain x 2 days, N/V and generalized abd pain x 3-4 days) Onset/Duration: 2 & 4 days Symptoms Are: Still present Timing: Constant Episodes of Voiding Over Last 12 Hours: 4 (unsure) Initial Severity: Mild Current Severity: Moderate Location of Pain: Reports: Diffuse (generalized abdomen and low back) Character: Reports: Cramping (aching) Aggravating: Reports: Voiding Alleviating: Reports: None Associated Signs and Symptoms: Reports: Nausea, Vomiting, Abdominal Pain Last Voided: 1 hour ago Testicular Torsion Risk Factors: Reports: None Surgical Obstruction Risk Factors: Reports: None Related Surgical History: Reports: None Abdominal Findings: Present: None (mild generalized tenderness to palpation, more tender in epigastric area) Genitalia Exam: Present: Normal findings Rectal Exam: Present: Tenderness (prostate huge and boggy, massage duplicates back pain) Differential Diagnoses: Prostatitis, Other (gastritis) Review of Systems - Review Of Systems Constitutional: Reports: Chills Respiratory: Reports: No symptoms Cardiac: Reports: No symptoms GI: Reports: Abdominal pain, Nausea, Vomiting. Denies: Diarrhea : Reports: Pain (burning with urination) Musculoskeletal: Reports: No symptoms Skin: Reports: No symptoms Neurological: Reports: No symptoms All Other Systems: Reviewed and Negative Past Medical History - Past Medical History Previously Healthy: No Endocrine: Reports: None Cardiovascular: Reports: Hypertension Respiratory: Reports: Asthma Hematological: Reports: None Gastrointestinal: Reports: GERD Genitourinary: Reports: None Neuro/Psych: Reports: Migraine, Anxiety, Depression, Bipolar Disorder Musculoskeletal: Reports: None Cancer: Reports: None Other Pertinent Past Medical History: Dental Caries, Hypoglycemia, C-diff. - Surgical History General Surgical History: Reports: Other (dental extractions one week ago . PE TUBES , Recent fecal matter transplant ) - Family History Family History: Reports: Unknown - Social History Smoking Status: Former smoker, Vaping Hx Substance Use: No (Frequent ER visits) Alcohol Screening: None Lives: With family - Immunizations Tetanus Shot up to Date: No Influenza Vaccine within 12 Months: No Pneumococcal Vaccine up to Date: No Physical Exam - Physical Exam Appearance: Well-appearing, Well-nourished Ill-appearing: None Pain Distress: Moderate Respiratory: Airway patent, Breath sounds clear, Breath sounds equal, Respirations nonlabored Cardiovascular: RRR, Pulses normal, No rub, No murmur GI/: Soft, No masses, Bowel sounds normal, No Organomegaly, Tender (mild generalized tenderness, more tender in epigastric area, no guarding or rebound; Rectal exam: prostate huge,boggy, and extremely tender to palpation. Massage duplicates low back pain.) Musculoskeletal: Normal strength, ROM intact, No edema, No calf tenderness Skin: Warm, Dry, Normal color Neurological: Sensation intact, Motor intact, Reflexes intact, Cranial nerves intact, Alert, Oriented Psychiatric: Affect appropriate, Mood appropriate Critical Care Note - Critical Care Note Total Time (mins): 0 Course - Course Vital Signs: Temp Pulse Resp BP Pulse Ox 06/20/17 10:40 97.6 F 99 H 20 139/79 98 Departure - Departure Time of Disposition: 11:14 Disposition: HOME SELF-CARE Discharge Problem: Acute prostatitis, Gastritis Instructions: Prostatitis (ED), Gastritis (ED) Condition: Good Pt referred to PMD for follow-up: No (see doctor if no better in 3 days or symptoms recur when antibiotics done) Allergies/Adverse Reactions: Allergies dicyclomine [From Bentyl] Adverse Reaction (Unknown, Verified 06/20/17 10:44) amoxicillin [Amoxicillin] Adverse Reaction (Verified 06/20/17 10:44) Swelling clindamycin Adverse Reaction (Verified 06/20/17 10:44) Unknown states it is causing a bad bacteria to grow in his stomach per Dr. Jeremy Salmeron dexamethasone [From Decadron] Adverse Reaction (Verified 06/20/17 10:44) ketorolac [From Toradol] Adverse Reaction (Verified 06/20/17 10:44) paroxetine HCl [From Paxil] Adverse Reaction (Verified 06/20/17 10:44) Penicillins Adverse Reaction (Verified 06/20/17 10:44) Swelling rofecoxib [From Vioxx] Adverse Reaction (Verified 06/20/17 10:44) Sulfa (Sulfonamide Antibiotics) Adverse Reaction (Verified 06/20/17 10:44) Rash sulfamethoxazole [From Bactrim] Adverse Reaction (Verified 06/20/17 10:44) Swelling tramadol Adverse Reaction (Verified 06/20/17 10:44) trimethoprim [From Bactrim] Adverse Reaction (Verified 06/20/17 10:44) Swelling swelling in throat Home Medications: Ambulatory Orders Acetaminophen with Codeine [Tylenol #3 Tab] 1 tab PO Q4H PRN #20 tablet Ciprofloxacin HCl [Cipro] 500 mg PO BID #42 tablet 06/20/17 Ondansetron [Zofran Odt] 4 mg PO Q6H PRN #12 tab.rapdis 06/20/17 Disposition Discussed With: Patient
== END 2017-06-20 11:24 | disposition home or self-care (01) ==
LOC: ED 10:40
DX: N41.0 Acute prostatitis (principal); K29.70 Gastritis, unspecified, without bleeding
CPT/HCPCS: 99283

== ENCOUNTER 2017-06-22 12:29 | Emergency (ER) ==
[2017-06-22 12:37] VITALS: BP 128/64; TEMP 97.6; BMI 24.4
[2017-06-22 12:50] LABS: BASOPHILS % (AUTO) 0.2 % (0.0-3.0); EOSINOPHILS # (AUTO) 0.2 K/ul (0.0-0.7); EOSINOPHILS % (AUTO) 1.5 % (0.0-7.0); HEMATOCRIT 39.8 % (42.0-52.0); HEMOGLOBIN 14.4 g/dl (14.0-18.0); IMMATURE GRANULOCYTE % (AUTO) 0.2 % (0.0-5.0); LYMPHOCYTES # (AUTO) 2.3 K/uL (0.60-3.4); MEAN CORPUSCULAR HGB CONC 36.2 (31.8-35.4); MEAN CORPUSCULAR VOLUME 82.9 fl (80.0-94.0); MONOCYTES # (AUTO) 0.5 K/uL (0.4-2.0); MONOCYTES % (AUTO) 4.4 (0-10); NEUTROPHILS % (AUTO) 74.7; PLATELET COUNT 202 10^3/uL (140-440); WHITE BLOOD COUNT 12.08 K/ul (4.2-10.2)
[2017-06-22 12:52] LABS: ESR INTERNAL QC INTERNAL QC VALID
--- NOTE | 2017-06-22 13:11 | CT ---
EXAM: Noncontrast CT of the abdomen and pelvis. HISTORY: Abdominal pain. COMPARISON: 12/07/2016 TECHNIQUE: Contiguous axial images at 3 mm intervals were obtained from lung bases through the pelvi s. No contrast was given. Coronal reformats were reviewed. FINDINGS: The study is limited without contrast. CHEST: The lung bases show no lobar consolidation or effusion. The heart size is within normal limi ts. ABDOMEN: Evaluation of the soft tissue organs is limited without contrast. LIVER: Noncontrast images of the liver show no solid mass lesion or intrahepatic ductal dilatation. BILIARY: The gallbladder is not well distended. No gallstones are noted. No pericholecystic fluid or inflammation. The common bile duct is normal. SPLEEN: The spleen is unremarkable. PANCREAS: The pancreas shows no mass lesion or peripancreatic inflammation. ADRENAL GLANDS: The adrenal glands are normal. RENAL: The kidneys show no hydronephrosis or nephrolithiasis. There are no obstructing ureteral sto juan [place]go. No solid mass lesions are identified. RETROPERITONEUM: The aorta is unopacified. No aneurysm is identified. No aortic calcifications are seen. There is no retroperitoneal or mesenteric adenopathy. BOWEL: The bowel is unopacified. There is no obstruction or inflammatory change. There is no free fluid or free air. No significant inflammatory changes are seen. There is a large amount of high d ensity stool in the descending colon and rectum. No definite evidence of colonic obstruction is seen. The appendix is identified and is normal. PELVIS: BLADDER: The bladder is well distended and appears normal. GENITOURINARY STRUCTURES: The prostate is unremarkable. OSSEOUS STRUCTURES: The osseous structures are normal for age. IMPRESSION 1. No acute intra-abdominal abnormality. Limited study without contrast. No obstructing ureteral s tones. 2. The appendix is normal. 3. Large amount of high density stool in the rectum.
[2017-06-22 13:16] LABS: ALBUMIN 4.2 g/dL (3.4-5.0); ALBUMIN/GLOBULIN RATIO 1.31; ANION GAP 13.1; BILIRUBIN,TOTAL 0.48 mg/dL (0.00-1.20); BUN/CREATININE RATIO 9.21; CREATININE 0.76 mg/dL (0.60-1.10); POTASSIUM 4.1 mmol/L (3.5-5.1); TOTAL PROTEIN 7.4 g/dL (6.4-8.2); TROPONIN I 0.013 ng/ml (0.0000-0.4000)
[2017-06-22 13:17] LABS: ADD URINE MICROSCOPIC NO; BILIRUBIN,URINE Negative (NEGATIVE); KETONES,URINE Negative (NEGATIVE); LEUKOCYTE ESTERASE ,URINE Negative (NEGATIVE); NITRITE,URINE Negative (NEGATIVE); PH,URINE 8.5 (5-9); PROTEIN,URINE Negative (NEGATIVE); URINE, BLOOD Negative (NEGATIVE)
[2017-06-22 13:24] LABS: ERYTHROCYTE SEDIMENTATION RATE 6 mm/hr (0-15)
--- NOTE | 2017-06-22 13:50 | DI ---
EXAM: Right hand three view. Three view. HISTORY: Pain. Trauma. COMPARISON: 06/17/2017 FINDINGS: AP, lateral and oblique views of the right hand. There are no acute or healing fractures. There are no lytic or blastic lesions. Soft tissues are normal. Ulna negative variance is noted. Bone mineralization is normal. There are no significant degenerative changes. IMPRESSION: Normal right hand.
--- NOTE | 2017-06-22 13:51 | DI ---
EXAM: Right wrist. Three-view. HISTORY: Right wrist pain. COMPARISON: 06/17/2017 FINDINGS: AP, lateral oblique views of the right wrist. There are no acute or healing fractures. T here are no lytic or blastic lesions. Soft tissues are normal. Bone mineralization is normal. Ulna negative variance is noted. No significant degenerative changes. IMPRESSION: Normal right wrist.
--- NOTE | 2017-06-22 13:55 | ED.PDOC ---
General ED Provider: Dr. MELO NATION-ER Chief Complaint: Abdominal Pain Stated Complaint: my belly is hurting and i hurt my hand/wrist a few days ago-- scratched it and now the wrist is red and inflammed Time Seen by Physician: 12:35 Mode of Arrival: Walk-In Information Source: Patient Exam Limitations: No limitations Primary Care Provider: DELLA REYNOLDS Nursing and Triage Documentation Reviewed and Agree: Yes Skin Complaint Exam - Skin/Soft Tissue Complaint/Exam Onset/Duration: several days Symptoms Are: Still present Timing: Intermittent Initial Severity: Mild Current Severity: Mild Location: left hand and wrist Character: Reports: Redness, Swelling, Painful Aggravating: Reports: None Alleviating: Reports: None Associated Signs and Symptoms: Reports: Bruising, Tenderness, Red streaks. Denies: Fever, Chills, Itching, Drainage, Joint swelling Related Surgical History: Reports: None Recent Exposure to Others w/Similar Symptoms: No Skin Findings: Present: Erythema, Other (abrasions--cellulitis) Joint Tenderness Present: No Differential Diagnoses: Cellulitis, Other (abrasions) Review of Systems - Review Of Systems Constitutional: Reports: No symptoms Eyes: Reports: No symptoms Ears, Nose, Mouth, Throat: Reports: No symptoms Respiratory: Reports: No symptoms Cardiac: Reports: No symptoms GI: Reports: No symptoms : Reports: No symptoms Musculoskeletal: Reports: No symptoms Skin: Reports: Other (abrasions over left hand, knuckles and erythema left wrist ) Neurological: Reports: No symptoms Endocrine: Reports: No symptoms Hematologic/Lymphatic: Reports: No symptoms All Other Systems: Reviewed and Negative Past Medical History - Past Medical History Previously Healthy: No Endocrine: Reports: None Cardiovascular: Reports: Hypertension Respiratory: Reports: Asthma Hematological: Reports: None Gastrointestinal: Reports: GERD Genitourinary: Reports: None Neuro/Psych: Reports: Migraine, Anxiety, Depression, Bipolar Disorder Musculoskeletal: Reports: None Cancer: Reports: None Other Pertinent Past Medical History: Dental Caries, Hypoglycemia, C-diff. - Surgical History General Surgical History: Reports: Other (dental extractions one week ago . PE TUBES , Recent fecal matter transplant ) - Family History Family History: Reports: Unknown - Social History Smoking Status: Current every day smoker, Heavy tobacco smoker, Vaping Hx Substance Use: No (Frequent ER visits) Alcohol Screening: None Lives: With family - Immunizations Influenza Vaccine within 12 Months: No Pneumococcal Vaccine up to Date: No Physical Exam - Physical Exam Appearance: Well-appearing, No pain distress, Well-nourished Eyes: PRATIMA, EOMI, Conjunctiva clear ENT: Ears normal, Nose normal, Oropharynx normal Neck: Supple Respiratory: Airway patent, Breath sounds clear, Breath sounds equal, Respirations nonlabored Cardiovascular: RRR, Pulses normal, No rub, No murmur GI/: Soft, Nontender, No masses, Bowel sounds normal, No Organomegaly Musculoskeletal: Normal strength, ROM intact, No edema, No calf tenderness Skin: Warm, Dry, Normal color Neurological: Sensation intact, Motor intact, Reflexes intact, Cranial nerves intact, Alert, Oriented Psychiatric: Affect appropriate, Mood appropriate Interpretation - Radiology Interpretation Radiology Interpretation By: Radiologist Exam Interpreted: CT Scan Critical Care Note - Critical Care Note Total Time (mins): 0 Course - Course Hematology/Chemistry: 06/22/17 12:45 06/22/17 12:45 Orders, Labs, Meds: Lab Review 06/22/17 06/22/17 06/22/17 12:45 12:45 13:10 WBC 12.08 H RBC 4.80 Hgb 14.4 Hct 39.8 L MCV 82.9 MCH 30.0 MCHC 36.2 H RDW Coeff of Steven 12.3 Plt Count 202 Immature Gran % (Auto) 0.2 Neut % (Auto) 74.7 Lymph % (Auto) 19.0 [place] % (Auto) 4.4 Eos % (Auto) 1.5 Baso % (Auto) 0.2 Immature Gran # (Auto) 0.0 Neut # 9.0 H Lymph # 2.3 [place] # 0.5 Eos # 0.2 Baso # 0.0 ESR 6 Sodium 142 Potassium 4.1 Chloride 109 H Carbon Dioxide 24 Anion Gap 13.1 BUN 7 Creatinine 0.76 Estimated GFR (MDRD) 121.00 BUN/Creatinine Ratio 9.21 Glucose 107 H Calcium 10.0 Total Bilirubin 0.48 AST 14 L ALT 15 Alkaline Phosphatase 49 L Total Creatine Kinase 110 Troponin I 0.0130 Total Protein 7.4 Albumin 4.2 Globulin 3.2 Albumin/Globulin Ratio 1.31 Amylase 68 Lipase 53 Urine Color Yellow Urine Clarity Clear Urine pH 8.5 Ur Specific [place] 1.015 Urine Protein Negative Urine Glucose (UA) Negative Urine Ketones Negative Urine Blood Negative Urine Nitrite Negative Urine Bilirubin Negative Urine Urobilinogen 1.0 Ur Leukocyte Esterase Negative Orders Category Date Time Status EKG-(ED ONLY) Stat CARDIO 06/22/17 12:33 Completed AMYLASE Stat LAB 06/22/17 12:45 Completed CBC W/ AUTO DIFF Stat LAB 06/22/17 12:45 Completed COMPREHENSIVE METABOLIC PANEL Stat LAB 06/22/17 12:45 Completed CREATINE KINASE Stat LAB 06/22/17 12:45 Completed ESR Stat LAB 06/22/17 12:45 Completed LIPASE Stat LAB 06/22/17 12:45 Completed TROPONIN I Stat LAB 06/22/17 12:45 Completed URINALYSIS C & S IF INDICATED Stat LAB 06/22/17 13:[address] ABDOMEN/PELVIS WO CONTRAST Stat RADS 06/22/17 12:33 Completed HAND, RIGHT 3 VIEWS Stat RADS 06/22/17 13:22 Completed WRIST, RIGHT 3 VIEWS Stat RADS 06/22/17 13:23 Completed Vital Signs: Temp Pulse Resp BP Pulse Ox 06/22/17 12:31 97.6 F 84 20 128/64 97 Departure - Departure Time of Disposition: 13:56 Disposition: HOME SELF-CARE Discharge Problem: Abdominal pain Cellulitis Qualifiers: Site of cellulitis: extremity Site of cellulitis of extremity: upper extremity Laterality: left Qualified Code(s): L03.114 - Cellulitis of left upper limb Instructions: Cellulitis (ED) Condition: Good Pt referred to PMD for follow-up: Yes Additional Instructions: doxycycline 100mg q 12hrs #14--norco 5m q 6hrs prn pain #=6--recheck with pcp in 2 days--use laxatives to get bm Allergies/Adverse Reactions: Allergies dicyclomine [From Bentyl] Adverse Reaction (Unknown, Verified 06/22/17 12:37) amoxicillin [Amoxicillin] Adverse Reaction (Verified 06/22/17 12:37) Swelling clindamycin Adverse Reaction (Verified 06/22/17 12:37) Unknown states it is causing a bad bacteria to grow in his stomach per Dr. Luna at [facility] dexamethasone [From Decadron] Adverse Reaction (Verified 06/22/17 12:37) ketorolac [From Toradol] Adverse Reaction (Verified 06/22/17 12:37) paroxetine HCl [From Paxil] Adverse Reaction (Verified 06/22/17 12:37) Penicillins Adverse Reaction (Verified 06/22/17 12:37) Swelling rofecoxib [From Vioxx] Adverse Reaction (Verified 06/22/17 12:37) Sulfa (Sulfonamide Antibiotics) Adverse Reaction (Verified 06/22/17 12:37) Rash sulfamethoxazole [From Bactrim] Adverse Reaction (Verified 06/22/17 12:37) Swelling tramadol Adverse Reaction (Verified 06/22/17 12:37) trimethoprim [From Bactrim] Adverse Reaction (Verified 06/22/17 12:37) Swelling swelling in throat Home Medications: Ambulatory Orders Acetaminophen with Codeine [Tylenol #3 Tab] 1 tab PO Q4H PRN #20 tablet Ciprofloxacin HCl [Cipro] 500 mg PO BID #42 tablet 06/20/17 Ondansetron [Zofran Odt] 4 mg PO Q6H PRN #12 tab.rapdis 06/20/17 Disposition Discussed With: Patient
[2017-06-22] MEDS ORDERED: NORCO 5-325 PO STA (14:07)
== END 2017-06-22 14:18 | disposition home or self-care (01) ==
LOC: ED 12:29
DX: R10.9 Unspecified abdominal pain (principal); L03.114 Cellulitis of left upper limb; F17.210 Nicotine dependence, cigarettes, uncomplicated
CPT/HCPCS: 36415; 80053; 81001; 82150; 82550; 83690; 84484; 85025; 85651; 93005; 93010; 99283

== ENCOUNTER 2017-07-20 22:22 | Emergency (ER) ==
[2017-07-20 22:40] VITALS: BP 122/81; TEMP 98.4; BMI 25.0
[2017-07-20] MEDS ORDERED: DILAUDID 2 MG/ML SYRINGE IM STA (23:01)
[2017-07-20] MEDS ORDERED: PHENERGAN 25 MG/ML VIAL IM STA (23:01)
[2017-07-20 23:09] LABS: BASOPHILS # (AUTO) 0.1 K/uL (0-0.2); BASOPHILS % (AUTO) 0.8 % (0.0-3.0); EOSINOPHILS # (AUTO) 0.2 K/ul (0.0-0.7); EOSINOPHILS % (AUTO) 2.8 % (0.0-7.0); HEMATOCRIT 36.2 % (42.0-52.0); IMMATURE GRANULOCYTE % (AUTO) 0.2 % (0.0-5.0); LYMPHOCYTES # (AUTO) 2.6 K/uL (0.60-3.4); LYMPHOCYTES % (AUTO) 39.5 (10.0-50.0); MEAN CORPUSCULAR HEMOGLOBIN 30.2 pg (27.0-31.0); MEAN CORPUSCULAR HGB CONC 35.9 (31.8-35.4); MONOCYTES # (AUTO) 0.4 K/uL (0.4-2.0); MONOCYTES % (AUTO) 6.5 (0-10); NEUTROPHILS # (AUTO) 3.3 K/ul (2.0-6.9); NEUTROPHILS % (AUTO) 50.2; PLATELET COUNT 124 10^3/uL (140-440); RED BLOOD COUNT 4.31 10^6/ul (4.70-6.10)
[2017-07-20 23:31] LABS: ALBUMIN 3.9 g/dL (3.4-5.0); ALBUMIN/GLOBULIN RATIO 1.34; ANION GAP 10.7; BILIRUBIN,TOTAL 0.25 mg/dL (0.00-1.20); BUN/CREATININE RATIO 7.89; CALCIUM 9.3 mg/dL (8.2-10.2); CREATININE 0.76 mg/dL (0.60-1.10); POTASSIUM 3.7 mmol/L (3.5-5.1); TOTAL PROTEIN 6.8 g/dL (6.4-8.2)
[2017-07-20 23:38] LABS: BILIRUBIN,URINE Negative (NEGATIVE); KETONES,URINE Negative (NEGATIVE); LEUKOCYTE ESTERASE ,URINE Negative (NEGATIVE); NITRITE,URINE Negative (NEGATIVE); PROTEIN,URINE Negative (NEGATIVE); URINE, BLOOD Negative (NEGATIVE)
[2017-07-20 23:39] LABS: ADD URINE MICROSCOPIC NO
[2017-07-20 23:42] LABS: ERYTHROCYTE SEDIMENTATION RATE 0 mm/hr (0-15); ESR INTERNAL QC INTERNAL QC VALID
--- NOTE | 2017-07-20 23:53 | CT ---
EXAM: CT scan abdomen pelvis without contrast HISTORY: Abdominal and scrotal pain COMPARISON: CT scan abdomen pelvis 06/22/2017 FINDINGS: Contiguous axial images were obtained from lung bases to the symphysis pubis without contr ast utilizing 5-mm collimation. Sagittal and coronal reconstructions were imaged and reviewed. The visualized lung bases are clear. The gallbladder is contracted. The liver, pancreas, spleen and adr enal glands have normal unenhanced CT appearance. The kidneys are morphologically normal.. The prost ate gland normal in size. There is a normal appendix. There is no free fluid or inflammatory changes .. Bone windows reveals no evidence of lytic or blastic lesions. There is bilateral gynecomastia. IMPRESSION: No acute intra-abdominal findings
--- NOTE | 2017-07-21 00:33 | ED.PDOC ---
General ED Provider: Dr. MELO NATION-ER Chief Complaint: Abdominal Pain Stated Complaint: analisa had epidydimitits before --i have it again Time Seen by Physician: 22:25 Mode of Arrival: Walk-In Information Source: Patient, Family Exam Limitations: No limitations Primary Care Provider: DELLA REYNOLDS Nursing and Triage Documentation Reviewed and Agree: Yes Complaint Exam - Complaint/Exam Patient Complains of: Reports: Groin pain. Denies: Scrotal pain, Scrotal swelling, Groin swelling, Dysuria Symptoms Are: Still present Timing: Intermittent Initial Severity: Mild Current Severity: Moderate Location of Pain: Reports: Discrete, Left, Scrotum Character: Reports: Burning, Dull Aggravating: Reports: Straining, Palpation Associated Signs and Symptoms: Reports: Scrotal pain, Abdominal Pain. Denies: Diaphoresis, Back pain, Fever, Hematuria, Dysuria, Constipation, Blood in stool , Rectal pain, Appetite change, Nausea, Vomiting, Penile swelling, Penile discharge, Decreased urine output, Increased urine frequency, Increased thirst, Decreased activity, Lethargy, Scrotal swelling Related History: Reports: Similar episode (he says he has had this "many times") Genitalia Exam: Present: Normal findings. Absent: Testes tender, Mass, Scrotal swelling, Penile swelling, Penile lesions, Penile vesicles Differential Diagnoses: Epididymitis Review of Systems - Review Of Systems Constitutional: Reports: No symptoms Eyes: Reports: No symptoms Ears, Nose, Mouth, Throat: Reports: No symptoms Respiratory: Reports: No symptoms Cardiac: Reports: No symptoms GI: Reports: Abdominal pain : Reports: Pain Musculoskeletal: Reports: No symptoms Skin: Reports: No symptoms Neurological: Reports: No symptoms Endocrine: Reports: No symptoms Hematologic/Lymphatic: Reports: No symptoms All Other Systems: Reviewed and Negative Past Medical History - Past Medical History Previously Healthy: No Endocrine: Reports: None Cardiovascular: Reports: Hypertension Respiratory: Reports: Asthma Hematological: Reports: None Gastrointestinal: Reports: GERD Genitourinary: Reports: None Neuro/Psych: Reports: Migraine, Anxiety, Depression, Bipolar Disorder Musculoskeletal: Reports: None Cancer: Reports: None Other Pertinent Past Medical History: Dental Caries, Hypoglycemia, C-diff. - Surgical History General Surgical History: Reports: Other (dental extractions one week ago . PE TUBES , Recent fecal matter transplant ) - Family History Family History: Reports: Unknown - Social History Smoking Status: Vaping, Heavy tobacco smoker, Current every day smoker Hx Substance Use: No Alcohol Screening: None - Immunizations Tetanus Shot up to Date: Yes Influenza Vaccine within 12 Months: No Pneumococcal Vaccine up to Date: No Physical Exam - Physical Exam Appearance: Well-appearing, No pain distress, Well-nourished Pain Distress: Mild Eyes: PRATIMA, EOMI, Conjunctiva clear ENT: Ears normal, Nose normal, Oropharynx normal Neck: Supple Respiratory: Airway patent Cardiovascular: RRR, Pulses normal, No rub, No murmur GI/: Tender (the left scrotum is tender but both testicles are descended and nontender) Musculoskeletal: Normal strength, ROM intact, No edema, No calf tenderness Skin: Warm Neurological: Sensation intact, Motor intact, Reflexes intact, Cranial nerves intact, Alert, Oriented Psychiatric: Affect appropriate, Mood appropriate Interpretation - Radiology Interpretation Radiology Interpretation By: Radiologist Radiology Results: Negative Exam Interpreted: CT Scan Critical Care Note - Critical Care Note Total Time (mins): 0 Course - Course Hematology/Chemistry: 07/20/17 23:00 07/20/17 23:00 Orders, Labs, Meds: Lab Review 07/20/17 07/20/17 07/20/17 23:00 23:00 23:30 WBC 6.50 RBC 4.31 L Hgb 13.0 L Hct 36.2 L MCV 84.0 MCH 30.2 MCHC 35.9 H RDW Coeff of Steven 12.3 Plt Count 124 L Immature Gran % (Auto) 0.2 Neut % (Auto) 50.2 Lymph % (Auto) 39.5 [place] % (Auto) 6.5 Eos % (Auto) 2.8 Baso % (Auto) 0.8 Immature Gran # (Auto) 0.0 Neut # 3.3 Lymph # 2.6 [place] # 0.4 Eos # 0.2 Baso # 0.1 ESR 0 Sodium 142 Potassium 3.7 Chloride 106 Carbon Dioxide 29 Anion Gap 10.7 BUN 6 L Creatinine 0.76 Estimated GFR (MDRD) 121.00 BUN/Creatinine Ratio 7.89 Glucose 87 Calcium 9.3 Total Bilirubin 0.25 AST 14 L ALT 9 L Alkaline Phosphatase 50 Total Protein 6.8 Albumin 3.9 Globulin 2.9 Albumin/Globulin Ratio 1.34 Amylase 71 Lipase 41 Urine Color Yellow Urine Clarity Clear Urine pH 7.0 Ur Specific [place] 1.020 Urine Protein Negative Urine Glucose (UA) Negative Urine Ketones Negative Urine Blood Negative Urine Nitrite Negative Urine Bilirubin Negative Urine Urobilinogen 0.2 Ur Leukocyte Esterase Negative Orders Category Date Time Status EKG-(ED ONLY) Stat CARDIO 07/20/17 22:59 Completed ED BLADDER SCAN .ONCE EMERGENCY 07/20/17 23:00 Active AMYLASE Stat LAB 07/20/17 23:00 Completed CBC W/ AUTO DIFF Stat LAB 07/20/17 23:00 Completed COMPREHENSIVE METABOLIC PANEL Stat LAB 07/20/17 23:00 Completed ESR Stat LAB 07/20/17 23:00 Completed LIPASE Stat LAB 07/20/17 23:00 Completed URINALYSIS C & S IF INDICATED Stat LAB 07/20/17 23:30 Completed Hydromorphone HCl/Pf [Dilaudid 2 mg/ml Syringe] MEDS 07/20/17 23:01 Discontinued 2 mg IM ONCE STA Promethazine HCl [Phenergan 25 mg/ml Vial] MEDS 07/20/17 23:01 Discontinued 25 mg IM ONCE STA CT ABDOMEN/PELVIS WO CONTRAST Stat RADS 07/20/17 23:00 Completed Medications Discontinued Medications Generic Name Dose Route Start Last Admin Trade Name Freq PRN Reason Stop Dose Admin Hydromorphone HCl 2 mg 07/20/17 23:01 07/20/17 23:29 Dilaudid 2 Mg/Ml Syringe IM 07/20/17 23:02 2 mg ONCE STA Administration Promethazine HCl 25 mg 07/20/17 23:01 07/20/17 23:30 Phenergan 25 Mg/Ml Vial IM 07/20/17 23:02 25 mg ONCE STA Administration it should be noted he has no hx of trauma--testicles are both descended -- clinically this is not a torsion Vital Signs: Temp Pulse Resp BP Pulse Ox 07/20/17 22:23 98.4 F 65 20 122/81 98 Departure - Departure Time of Disposition: 00:34 Disposition: HOME SELF-CARE Discharge Problem: Epididymitis, left Instructions: Scrotal Pain (ED) Condition: Good Pt referred to PMD for follow-up: Yes Additional Instructions: cipro 500mg bid x7 days--norco 7.5mg q 4hrs prn pain #15---f/u with pcp Allergies/Adverse Reactions: Allergies dicyclomine [From Bentyl] Adverse Reaction (Unknown, Verified 07/20/17 22:27) amoxicillin [Amoxicillin] Adverse Reaction (Verified 07/20/17 22:27) Swelling clindamycin Adverse Reaction (Verified 07/20/17:) Unknown states it is causing a bad bacteria to grow in his stomach per Dr. Luna at [facility] dexamethasone [From Decadron] Adverse Reaction (Verified 07/20/17 22:27) ketorolac [From Toradol] Adverse Reaction (Verified 07/20/17 22:27) paroxetine HCl [From Paxil] Adverse Reaction (Verified 07/20/17 22:27) Penicillins Adverse Reaction (Verified 07/20/17 22:27) Swelling rofecoxib [From Vioxx] Adverse Reaction (Verified 07/20/17 22:27) Sulfa (Sulfonamide Antibiotics) Adverse Reaction (Verified 07/20/17 22:27) Rash sulfamethoxazole [From Bactrim] Adverse Reaction (Verified 07/20/17 22:27) Swelling tramadol Adverse Reaction (Verified 07/20/17 22:27) trimethoprim [From Bactrim] Adverse Reaction (Verified 07/20/17 22:27) Swelling swelling in throat Home Medications: Ambulatory Orders Ibuprofen 800 mg PO TID PRN 07/13/17 Ranitidine HCl [Zantac] 150 mg PO TID 07/13/17
== END 2017-07-21 00:50 | disposition home or self-care (01) ==
LOC: ED 22:22
DX: N45.1 Epididymitis (principal); F17.210 Nicotine dependence, cigarettes, uncomplicated
CPT/HCPCS: 36415; 80053; 81001; 82150; 83690; 85025; 85651; 93005; 93010; 96372; 99283

== ENCOUNTER 2017-07-26 22:17 | Emergency (ER) ==
[2017-07-26 22:24] VITALS: BP 105/64; TEMP 96.6; BMI 23.8
[2017-07-26] MEDS ORDERED: CARAFATE PO STA (22:38)
--- NOTE | 2017-07-26 22:38 | ED.PDOC ---
General ED Provider: Dr. CHASE MICHELLE Chief Complaint: Chest Pain Stated Complaint: While doing some work on the the computer, he suddenly developed left side chest pain, radiating to left arm and neck. came for the evaluation Time Seen by Physician: 22:39 Mode of Arrival: Walk-In Information Source: Patient Primary Care Provider: DELLA REYNOLDS Nursing and Triage Documentation Reviewed and Agree: Yes Cardiovascular Complaint Exam - Chest Pain Complaint/Exam Onset: Sudden Symptoms Are: Still present Timing: Constant Initial Severity: Mild Current Severity: Mild Location: Reports: Left anterior Pain Radiates: Reports: None Character: Reports: Dull, Aching Aggravating: Reports: None Alleviating: Reports: None Associated Signs and Symptoms: Denies: Diaphoresis, Nausea, Vomiting, Fever, Palpitations, Cough, Hemoptysis, Back pain, Abdominal pain, Dizziness, Short of air, Calf pain, Calf swelling Related Surgical History: Reports: None History of Healthcare-Acquired Pneumonia: Reports: No AMI/ACS Risk Factors: Reports: None TAD Risk Factors: Reports: None Pulmonary Embolism Risk Factors: Reports: None Prior Care for this Complaint: No Recent Stress Test: No Recent Echo/LV Function: No JVD Present: No Subcutaneous Emphysema Present: No Diminshed Breath Sounds: No Reproducible Chest Wall Pain: No Bilateral Pulses Present: No Unequal Pulses Noted: No If Risk Factors for AMI/ACS Consider: EKG, Cardiac Enzymes Differential Diagnoses: Chest Wall Pain Review of Systems - Review Of Systems Constitutional: Reports: No symptoms Eyes: Reports: No symptoms Ears, Nose, Mouth, Throat: Reports: No symptoms Respiratory: Reports: No symptoms Cardiac: Reports: Chest pain GI: Reports: No symptoms : Reports: No symptoms Musculoskeletal: Reports: No symptoms Skin: Reports: No symptoms Neurological: Reports: No symptoms Endocrine: Reports: No symptoms Hematologic/Lymphatic: Reports: No symptoms All Other Systems: Reviewed and Negative Past Medical History - Past Medical History Previously Healthy: No Endocrine: Reports: None Cardiovascular: Reports: Hypertension Respiratory: Reports: Asthma Hematological: Reports: None Gastrointestinal: Reports: GERD Genitourinary: Reports: None Neuro/Psych: Reports: Migraine, Anxiety, Depression, Bipolar Disorder Musculoskeletal: Reports: None Cancer: Reports: None Other Pertinent Past Medical History: Dental Caries, Hypoglycemia, C-diff. - Surgical History General Surgical History: Reports: Other (dental extractions one week ago . PE TUBES , Recent fecal matter transplant ) - Family History Family History: Reports: Unknown - Social History Smoking Status: Vaping, Heavy tobacco smoker, Current every day smoker Smoking Cessation Counseling Time: > 10 min Hx Substance Use: No Alcohol Screening: None - Immunizations Tetanus Shot up to Date: Yes Influenza Vaccine within 12 Months: No Pneumococcal Vaccine up to Date: No Physical Exam - Physical Exam Appearance: Well-appearing, No pain distress, Well-nourished Eyes: PRATIMA, EOMI, Conjunctiva clear ENT: Ears normal, Nose normal, Oropharynx normal Respiratory: Airway patent, Breath sounds clear, Breath sounds equal, Respirations nonlabored Cardiovascular: RRR, Pulses normal, No rub, No murmur GI/: Soft, Nontender, No masses, Bowel sounds normal, No Organomegaly Musculoskeletal: Normal strength, ROM intact, No edema, No calf tenderness Skin: Warm, Dry, Normal color Neurological: Sensation intact, Motor intact, Reflexes intact, Cranial nerves intact, Alert, Oriented Psychiatric: Affect appropriate, Mood appropriate Critical Care Note - Critical Care Note Total Time (mins): 15 Course - Course Orders, Labs, Meds: Orders Category Date Time Status EKG-(ED ONLY) Stat CARDIO 07/26/17 22:38 Ordered CBC W/ AUTO DIFF Stat LAB 07/26/17 22:37 Ordered COMPREHENSIVE METABOLIC PANEL Stat LAB 07/26/17 22:38 Ordered CREATINE KINASE Stat LAB 07/26/17 22:38 Ordered TROPONIN I Stat LAB 07/26/17 22:38 Ordered URINE DRUG SCREEN (RAPID FOR ED) [DRUG SCREEN, URINE, LAB 07/26/17 22:39 Uncollected RAPID] Stat Sucralfate Susp [Carafate] MEDS 07/26/17 22:38 Discontinued 1 gm PO ONCE STA CHEST, 2 VIEWS PA & LAT Stat RADS 07/26/17 22:38 Ordered Medications Discontinued Medications Generic Name Dose Route Start Last Admin Trade Name Freq PRN Reason Stop Dose Admin Sucralfate 1 gm 07/26/17 22:38 Carafate PO 07/26/17 22:39 ONCE STA Vital Signs: Temp Pulse Resp BP Pulse Ox 07/26/17 22:18 96.6 F L 63 18 105/64 96 SHELIA Risk Score SHELIA Risk Score: Risk Score Odds of by 30D 0 0.1 (0.1-0.2) 1 0.3 (0.2-0.3) 2 0.4 (0.3-0.5) 3 0.7 (0.6-0.9) 4 1.2 (1.0-1.5) 5 2.2 (1.9-2.6) 6 3.0 (2.5-3.6) 7 4.8 (3.8-6.1) Departure - Departure Disposition: HOME SELF-CARE Discharge Problem: Chest pain Instructions: Chest Pain (ED) Condition: Good Pt referred to PMD for follow-up: Yes Additional Instructions: no spicy food no fried food. Allergies/Adverse Reactions: Allergies dicyclomine [From Bentyl] Adverse Reaction (Unknown, Verified 07/26/17 22:24) amoxicillin [Amoxicillin] Adverse Reaction (Verified 07/26/17 22:24) Swelling clindamycin Adverse Reaction (Verified 07/26/17 22:24) Unknown states it is causing a bad bacteria to grow in his stomach per Dr. Jeremy trent [facility] dexamethasone [From Decadron] Adverse Reaction (Verified 07/26/17 22:24) ketorolac [From Toradol] Adverse Reaction (Verified 07/26/17 22:24) paroxetine HCl [From Paxil] Adverse Reaction (Verified 07/26/17 22:24) Penicillins Adverse Reaction (Verified 07/26/17 22:24) Swelling rofecoxib [From Vioxx] Adverse Reaction (Verified 07/26/17 22:24) Sulfa (Sulfonamide Antibiotics) Adverse Reaction (Verified 07/26/17 22:24) Rash sulfamethoxazole [From Bactrim] Adverse Reaction (Verified 07/26/17 22:24) Swelling tramadol Adverse Reaction (Verified 07/26/17 22:24) trimethoprim [From Bactrim] Adverse Reaction (Verified 07/26/17 22:24) Swelling swelling in throat Home Medications: Ambulatory Orders Ibuprofen 800 mg PO TID PRN 07/13/17 Ranitidine HCl [Zantac] 150 mg PO TID 07/13/17 Disposition Discussed With: Patient, Family
[2017-07-26 22:49] LABS: BASOPHILS # (AUTO) 0.1 K/uL (0-0.2); BASOPHILS % (AUTO) 0.8 % (0.0-3.0); EOSINOPHILS # (AUTO) 0.2 K/ul (0.0-0.7); EOSINOPHILS % (AUTO) 3.2 % (0.0-7.0); HEMATOCRIT 37.5 % (42.0-52.0); HEMOGLOBIN 13.4 g/dl (14.0-18.0); IMMATURE GRANULOCYTE % (AUTO) 0.3 % (0.0-5.0); LYMPHOCYTES # (AUTO) 2.8 K/uL (0.60-3.4); LYMPHOCYTES % (AUTO) 44.6 (10.0-50.0); MEAN CORPUSCULAR HEMOGLOBIN 29.7 pg (27.0-31.0); MEAN CORPUSCULAR HGB CONC 35.7 (31.8-35.4); MEAN CORPUSCULAR VOLUME 83.1 fl (80.0-94.0); MONOCYTES # (AUTO) 0.4 K/uL (0.4-2.0); MONOCYTES % (AUTO) 7.1 (0-10); NEUTROPHILS # (AUTO) 2.7 K/ul (2.0-6.9); PLATELET COUNT 142 10^3/uL (140-440); RED BLOOD COUNT 4.51 10^6/ul (4.70-6.10); WHITE BLOOD COUNT 6.23 K/ul (4.2-10.2)
[2017-07-26 23:01] LABS: COCAIN SCREEN,URINE NEGATIVE (NEGATIVE)
--- NOTE | 2017-07-26 23:08 | DI ---
EXAM: PA and lateral views of the chest. HISTORY: Chest pain. FINDINGS: Comparison made with CT chest of 12/26/2016. The bones are unremarkable. The cardiac silho uette and pulmonary vasculature are within normal limits. The costophrenic angles are clear. No inf iltrate or consolidation. There is partially calcified granuloma in the right upper lobe. Impression: No acute cardiopulmonary disease. Old granulomatous disease.
[2017-07-26 23:12] LABS: ALBUMIN 3.9 g/dL (3.4-5.0); ALBUMIN/GLOBULIN RATIO 1.3; ANION GAP 11.9; BILIRUBIN,TOTAL 0.27 mg/dL (0.00-1.20); BUN/CREATININE RATIO 9.58; CALCIUM 9.2 mg/dL (8.2-10.2); CREATININE 0.73 mg/dL (0.60-1.10); POTASSIUM 3.9 mmol/L (3.5-5.1); TOTAL PROTEIN 6.9 g/dL (6.4-8.2); TROPONIN I 0.014 ng/ml (0.0000-0.4000)
== END 2017-07-26 23:25 | disposition home or self-care (01) ==
LOC: ED 22:17
DX: R07.9 Chest pain, unspecified (principal); F17.210 Nicotine dependence, cigarettes, uncomplicated
CPT/HCPCS: 36415; 80053; 80306; 82550; 84484; 85025; 93005; 93010; 99283

== ENCOUNTER 2017-07-31 23:09 | Emergency (ER) ==
[2017-07-31 23:10] VITALS: BMI 23.8
[2017-07-31 23:20] VITALS: BP 119/73; TEMP 97.7
[2017-07-31 23:44] LABS: BASOPHILS # (AUTO) 0.1 K/uL (0-0.2); BASOPHILS % (AUTO) 0.6 % (0.0-3.0); EOSINOPHILS # (AUTO) 0.2 K/ul (0.0-0.7); EOSINOPHILS % (AUTO) 1.6 % (0.0-7.0); HEMOGLOBIN 13.2 g/dl (14.0-18.0); IMMATURE GRANULOCYTE % (AUTO) 0.3 % (0.0-5.0); LYMPHOCYTES # (AUTO) 2.8 K/uL (0.60-3.4); MEAN CORPUSCULAR HEMOGLOBIN 29.4 pg (27.0-31.0); MEAN CORPUSCULAR HGB CONC 35.7 (31.8-35.4); MEAN CORPUSCULAR VOLUME 82.4 fl (80.0-94.0); MONOCYTES # (AUTO) 0.7 K/uL (0.4-2.0); NEUTROPHILS % (AUTO) 61.5; PLATELET COUNT 183 10^3/uL (140-440); RED BLOOD COUNT 4.49 10^6/ul (4.70-6.10); WHITE BLOOD COUNT 9.75 K/ul (4.2-10.2)
[2017-07-31 23:52] LABS: ADD URINE MICROSCOPIC NO; BILIRUBIN,URINE Negative (NEGATIVE); KETONES,URINE Negative (NEGATIVE); LEUKOCYTE ESTERASE ,URINE Negative (NEGATIVE); NITRITE,URINE Negative (NEGATIVE); PH,URINE 5.5 (5-9); PROTEIN,URINE Negative (NEGATIVE); URINE, BLOOD Negative (NEGATIVE)
[2017-08-01 00:04] LABS: ALBUMIN 4.4 g/dL (3.4-5.0); ALBUMIN/GLOBULIN RATIO 1.33; ANION GAP 11.3; BILIRUBIN,TOTAL 0.53 mg/dL (0.00-1.20); CALCIUM 9.6 mg/dL (8.2-10.2); CREATININE 0.78 mg/dL (0.60-1.10); POTASSIUM 3.3 mmol/L (3.5-5.1); TOTAL PROTEIN 7.7 g/dL (6.4-8.2)
[2017-08-01 00:05] LABS: BUN/CREATININE RATIO 11.53
[2017-08-01 00:11] LABS: ERYTHROCYTE SEDIMENTATION RATE 4 mm/hr (0-15); ESR INTERNAL QC INTERNAL QC VALID
--- NOTE | 2017-08-01 00:39 | ED.PDOC ---
General ED Provider: Dr. MELO NATION-ER Chief Complaint: Abdominal Pain Stated Complaint: analisa got a bubbly gurgly feeling in my gut--denies any n/v or pain Time Seen by Physician: 00:37 Mode of Arrival: Walk-In Information Source: Patient Exam Limitations: No limitations Primary Care Provider: DELLA REYNOLDS Nursing and Triage Documentation Reviewed and Agree: Yes GI Complaint Exam - Abdominal Pain Complaint/Exam Onset: Gradual Duration: 12hrs Symptoms Are: Still present Timing: Intermittent Initial Severity: Mild Current Severity: Mild Location of Pain: Discrete, LUQ Character: Reports: Dull, Aching, Colicky Aggravating: Reports: None Alleviating: Reports: None Associated Signs and Symptoms: Denies: Diaphoresis, Fever, Cough, Chest pain, Dizziness, Back pain, Constipation, Blood in stool, Dysuria, Urinary frequency, Decreased urine output, Decreased appetite, Discharge, Nausea, Vomiting, Diarrhea, Decreased activity Abdominal Findings: Present: None Differential Diagnoses: Constipation, PUD Review of Systems - Review Of Systems Constitutional: Reports: No symptoms Eyes: Reports: No symptoms Ears, Nose, Mouth, Throat: Reports: No symptoms Respiratory: Reports: No symptoms Cardiac: Reports: No symptoms GI: Reports: No symptoms : Reports: No symptoms Musculoskeletal: Reports: No symptoms Skin: Reports: No symptoms Neurological: Reports: No symptoms Endocrine: Reports: No symptoms Hematologic/Lymphatic: Reports: No symptoms All Other Systems: Reviewed and Negative Past Medical History - Past Medical History Previously Healthy: No Endocrine: Reports: None Cardiovascular: Reports: Hypertension Respiratory: Reports: Asthma Hematological: Reports: None Gastrointestinal: Reports: GERD Genitourinary: Reports: None Neuro/Psych: Reports: Migraine, Anxiety, Depression, Bipolar Disorder Musculoskeletal: Reports: None Cancer: Reports: None Other Pertinent Past Medical History: Dental Caries, Hypoglycemia, C-diff. - Surgical History General Surgical History: Reports: Other (dental extractions one week ago . PE TUBES , Recent fecal matter transplant ) - Family History Family History: Reports: Unknown - Social History Smoking Status: Vaping, Heavy tobacco smoker, Current every day smoker Hx Substance Use: No Alcohol Screening: None Lives: With family - Immunizations Tetanus Shot up to Date: Yes Influenza Vaccine within 12 Months: No Pneumococcal Vaccine up to Date: No Physical Exam - Physical Exam Appearance: Well-appearing, No pain distress, Well-nourished Pain Distress: Mild Eyes: PRATIMA ENT: Ears normal, Nose normal, Oropharynx normal Neck: Supple Respiratory: Airway patent Cardiovascular: RRR GI/: Soft Musculoskeletal: Normal strength, ROM intact, No edema, No calf tenderness Skin: Warm Neurological: Sensation intact Psychiatric: Affect appropriate, Mood appropriate Interpretation - Radiology Interpretation Radiology Interpretation By: ED Physician Radiology Results: Negative Critical Care Note - Critical Care Note Total Time (mins): 0 Course - Course Hematology/Chemistry: 07/31/17 23:40 07/31/17 23:40 Orders, Labs, Meds: Lab Review 07/31/17 07/31/17 07/31/17 23:40 23:40 23:40 WBC 9.75 RBC 4.49 L Hgb 13.2 L Hct 37.0 L MCV 82.4 MCH 29.4 MCHC 35.7 H RDW Coeff of Steven 12.2 Plt Count 183 Immature Gran % (Auto) 0.3 Neut % (Auto) 61.5 Lymph % (Auto) 29.0 [place] % (Auto) 7.0 Eos % (Auto) 1.6 Baso % (Auto) 0.6 Immature Gran # (Auto) 0.0 Neut # 6.0 Lymph # 2.8 [place] # 0.7 Eos # 0.2 Baso # 0.1 ESR 4 Sodium 140 Potassium 3.3 L Chloride 105 Carbon Dioxide 27 Anion Gap 11.3 BUN 9 Creatinine 0.78 Estimated GFR (MDRD) 118.00 BUN/Creatinine Ratio 11.53 Glucose 84 Calcium 9.6 Total Bilirubin 0.53 AST 18 ALT 18 Alkaline Phosphatase 48 L Total Protein 7.7 Albumin 4.4 Globulin 3.3 Albumin/Globulin Ratio 1.33 Amylase 55 Lipase 21 Urine Color Urine Clarity Urine pH Ur Specific [place] Urine Protein Urine Glucose (UA) Urine Ketones Urine Blood Urine Nitrite Urine Bilirubin Urine Urobilinogen Ur Leukocyte Esterase 07/31/17 23:45 WBC RBC Hgb Hct MCV MCH MCHC RDW Coeff of Steven Plt Count Immature Gran % (Auto) Neut % (Auto) Lymph % (Auto) [place] % (Auto) Eos % (Auto) Baso % (Auto) Immature Gran # (Auto) Neut # Lymph # [place] # Eos # Baso # ESR Sodium Potassium Chloride Carbon Dioxide Anion Gap BUN Creatinine Estimated GFR (MDRD) BUN/Creatinine Ratio Glucose Calcium Total Bilirubin AST ALT Alkaline Phosphatase Total Protein Albumin Globulin Albumin/Globulin Ratio Amylase Lipase Urine Color Yellow Urine Clarity Clear Urine pH 5.5 Ur Specific [place] 1.020 Urine Protein Negative Urine Glucose (UA) Negative Urine Ketones Negative Urine Blood Negative Urine Nitrite Negative Urine Bilirubin Negative Urine Urobilinogen 1.0 Ur Leukocyte Esterase Negative Orders Category Date Time Status AMYLASE Stat LAB 07/31/17 23:40 Completed CBC W/ AUTO DIFF Stat LAB 07/31/17 23:40 Completed COMPREHENSIVE METABOLIC PANEL Stat LAB 07/31/17 23:40 Completed ESR Stat LAB 07/31/17 23:40 Completed LIPASE Stat LAB 07/31/17 23:40 Completed URINALYSIS C & S IF INDICATED Stat LAB 07/31/17 23:45 Completed ABDOMEN 1 VIEW Stat RADS 07/31/17 23:14 Taken CHEST, 2 VIEWS PA & LAT Stat RADS 07/31/17 23:14 Taken Vital Signs: Temp Pulse Resp BP Pulse Ox 07/31/17 23:10 97.7 F 73 18 119/73 98 Departure - Departure Time of Disposition: 00:39 Disposition: HOME SELF-CARE Discharge Problem: Abdominal pain Instructions: Abdominal Pain (ED) Condition: Good Pt referred to PMD for follow-up: Yes Additional Instructions: add carafate 1gram qid #28--f/u pcp Allergies/Adverse Reactions: Allergies dicyclomine [From Bentyl] Adverse Reaction (Unknown, Verified 07/31/17 23:18) amoxicillin [Amoxicillin] Adverse Reaction (Verified 07/31/17 23:18) Swelling clindamycin Adverse Reaction (Verified 07/31/17 23:18) Unknown states it is causing a bad bacteria to grow in his stomach per Dr. Jeremy trent Faviola dexamethasone [From Decadron] Adverse Reaction (Verified 07/31/17 23:18) ketorolac [From Toradol] Adverse Reaction (Verified 07/31/17 23:18) paroxetine HCl [From Paxil] Adverse Reaction (Verified 07/31/17 23:18) Penicillins Adverse Reaction (Verified 07/31/17 23:18) Swelling rofecoxib [From Vioxx] Adverse Reaction (Verified 07/31/17 23:18) Sulfa (Sulfonamide Antibiotics) Adverse Reaction (Verified 07/31/17 23:18) Rash sulfamethoxazole [From Bactrim] Adverse Reaction (Verified 07/31/17 23:18) Swelling tramadol Adverse Reaction (Verified 07/31/17 23:18) trimethoprim [From Bactrim] Adverse Reaction (Verified 07/31/17 23:18) Swelling swelling in throat Home Medications: Ambulatory Orders Ibuprofen 800 mg PO TID PRN 07/13/17 Ranitidine HCl [Zantac] 150 mg PO TID 07/13/17 Buprenorphine HCl/Naloxone HCl [Suboxone 8 mg-2 mg Sl Film] 1 each SL BID Disposition Discussed With: Patient, Family
--- NOTE | 2017-08-01 05:46 | DI ---
Exam: Two x-rays of the chest. Comparison: 07/26/2017. Reason for exam: Rib pain. FINDINGS: No pneumothorax, pleural effusion, or focal consolidation. The cardiac silhouette is not enlarged. The imaged osseous structures appear grossly unremarkable without acute fracture. Old gra nulomas disease is seen in the lung parenchyma. Impression: No acute cardiopulmonary process.
--- NOTE | 2017-08-01 05:47 | DI ---
Exam: Single x-ray of the abdomen. Comparison: CT abdomen performed 07/20/2017. Reason for exam: Abdominal pain. FINDINGS: Nondilated loops of bowel are seen throughout the abdomen with speckles of air seen to the level of the rectosigmoid. The bowel gas pattern is nonspecific and nonobstructive. The imaged oss eous structures appear grossly unremarkable. Impression: Nonspecific, nonobstructive bowel gas pattern with air seen to the level of the rectosigmoid
== END 2017-08-01 00:54 | disposition home or self-care (01) ==
LOC: ED 23:09
DX: R10.9 Unspecified abdominal pain (principal); F17.210 Nicotine dependence, cigarettes, uncomplicated
CPT/HCPCS: 36415; 80053; 81001; 82150; 83690; 85025; 85651; 99283

== ENCOUNTER 2017-08-02 19:50 | Emergency (ER) ==
[2017-08-02 19:51] VITALS: BMI 23.8
[2017-08-02 19:54] VITALS: BP 125/79; TEMP 97.9
[2017-08-02 20:18] LABS: BASOPHILS # (AUTO) 0.1 K/uL (0-0.2); BASOPHILS % (AUTO) 0.7 % (0.0-3.0); EOSINOPHILS # (AUTO) 0.1 K/ul (0.0-0.7); EOSINOPHILS % (AUTO) 1.8 % (0.0-7.0); HEMOGLOBIN 13.3 g/dl (14.0-18.0); IMMATURE GRANULOCYTE % (AUTO) 0.1 % (0.0-5.0); LYMPHOCYTES # (AUTO) 2.5 K/uL (0.60-3.4); LYMPHOCYTES % (AUTO) 36.6 (10.0-50.0); MEAN CORPUSCULAR HEMOGLOBIN 29.2 pg (27.0-31.0); MEAN CORPUSCULAR HGB CONC 35.9 (31.8-35.4); MEAN CORPUSCULAR VOLUME 81.1 fl (80.0-94.0); MONOCYTES # (AUTO) 0.5 K/uL (0.4-2.0); MONOCYTES % (AUTO) 7.1 (0-10); NEUTROPHILS # (AUTO) 3.7 K/ul (2.0-6.9); NEUTROPHILS % (AUTO) 53.7; PLATELET COUNT 185 10^3/uL (140-440); RED BLOOD COUNT 4.56 10^6/ul (4.70-6.10)
[2017-08-02] MEDS ORDERED: DILAUDID 2 MG/ML SYRINGE IM STA (20:33)
[2017-08-02] MEDS ORDERED: PHENERGAN 25 MG/ML VIAL IM STA (20:33)
[2017-08-02 20:35] LABS: ALBUMIN 4.2 g/dL (3.4-5.0); ALBUMIN/GLOBULIN RATIO 1.35; ANION GAP 11.5; BILIRUBIN,TOTAL 0.52 mg/dL (0.00-1.20); BUN/CREATININE RATIO 11.26; CALCIUM 9.5 mg/dL (8.2-10.2); CREATININE 0.71 mg/dL (0.60-1.10); POTASSIUM 3.5 mmol/L (3.5-5.1); TOTAL PROTEIN 7.3 g/dL (6.4-8.2)
[2017-08-02 20:36] LABS: ADD URINE MICROSCOPIC NO; BILIRUBIN,URINE Negative (NEGATIVE); KETONES,URINE Negative (NEGATIVE); LEUKOCYTE ESTERASE ,URINE Negative (NEGATIVE); NITRITE,URINE Negative (NEGATIVE); PROTEIN,URINE Negative (NEGATIVE); URINE, BLOOD Negative (NEGATIVE)
[2017-08-02 20:37] LABS: FLU INTERNAL QC INTERNAL QC VALID; RAPID FLU A NEGATIVE (NEGATIVE); RAPID FLU B NEGATIVE (NEGATIVE)
--- NOTE | 2017-08-02 20:37 | CT ---
EXAM: CT abdomen and pelvis without contrast HISTORY: Abdominal pain, hepatitis C TECHNIQUE: Multi-slice transaxial helical with coronal and sagittal reformed images COMPARISON: CT abdomen/pelvis from 07/20/2017 FINDINGS: The lung bases are free of acute airspace or interstitial opacities. The heart size is nor mal. There are no pericardial or pleural effusions. The hepatic attenuation is normal relative to the spleen. The gallbladder is present without biliary dilatation. The pancreas and adrenal glands are normal. The spleen has normal size and attenuation . The kidneys and ureters are grossly normal. The nonopacified bladder is normal. The prostate has normal size and attenuation. Trace free pelvic fluid is detected. The intestines have normal calib er without evidence of obstruction or acute inflammation. The appendix is normal. The aorta has nor mal caliber. No lymphadenopathy or organized fluid collections are detected. The bones are free of suspicious osteolytic or osteoblastic lesions. IMPRESSION: 1. Trace free pelvic fluid of undetermined etiology. 2. Normal appendix. Nonobstructive intestinal gas pattern. 3. Normal renal collecting systems. 4. No biliary dilatation.
--- NOTE | 2017-08-02 20:50 | ED.PDOC ---
General ED Provider: Dr. MELO NATION-ER Chief Complaint: Abdominal Pain Stated Complaint: my belly is cramping Time Seen by Physician: 19:55 Mode of Arrival: Walk-In Information Source: Patient, Family Exam Limitations: No limitations Primary Care Provider: DELLA REYNOLDS Nursing and Triage Documentation Reviewed and Agree: Yes GI Complaint Exam - Abdominal Pain Complaint/Exam Onset: Gradual Duration: 12hrs Symptoms Are: Still present Timing: Constant Initial Severity: Mild Current Severity: Mild Location of Pain: Diffuse Character: Reports: Dull, Aching, Cramping, Tearing Alleviating: Reports: None Associated Signs and Symptoms: Reports: Constipation Related History: Reports: Similar episode Abdominal Findings: Present: None Differential Diagnoses: Other Review of Systems - Review Of Systems Constitutional: Reports: No symptoms Eyes: Reports: No symptoms Ears, Nose, Mouth, Throat: Reports: No symptoms Respiratory: Reports: No symptoms Cardiac: Reports: No symptoms GI: Reports: Abdominal pain, Nausea : Reports: No symptoms Musculoskeletal: Reports: No symptoms Skin: Reports: No symptoms Neurological: Reports: No symptoms Endocrine: Reports: No symptoms Hematologic/Lymphatic: Reports: No symptoms All Other Systems: Reviewed and Negative Past Medical History - Past Medical History Previously Healthy: No Endocrine: Reports: None Cardiovascular: Reports: Hypertension Respiratory: Reports: Asthma Hematological: Reports: None Gastrointestinal: Reports: GERD Genitourinary: Reports: None Neuro/Psych: Reports: Migraine, Anxiety, Depression, Bipolar Disorder Musculoskeletal: Reports: None Cancer: Reports: None Other Pertinent Past Medical History: Dental Caries, Hypoglycemia, C-diff. - Surgical History General Surgical History: Reports: Other (dental extractions one week ago . PE TUBES , Recent fecal matter transplant ) - Family History Family History: Reports: Unknown - Social History Smoking Status: Vaping, Heavy tobacco smoker, Current every day smoker Hx Substance Use: No Alcohol Screening: None - Immunizations Tetanus Shot up to Date: Yes Influenza Vaccine within 12 Months: No Pneumococcal Vaccine up to Date: No Physical Exam - Physical Exam Appearance: Well-appearing, No pain distress, Well-nourished Pain Distress: Moderate Eyes: PRATIMA, EOMI, Conjunctiva clear ENT: Ears normal, Nose normal, Oropharynx normal Neck: Supple Respiratory: Airway patent, Breath sounds clear, Breath sounds equal, Respirations nonlabored Cardiovascular: RRR GI/: Soft, Nontender, No masses Musculoskeletal: Normal strength, ROM intact, No edema, No calf tenderness Skin: Warm Neurological: Sensation intact, Motor intact, Reflexes intact, Cranial nerves intact, Alert, Oriented Psychiatric: Affect appropriate, Mood appropriate Interpretation - Radiology Interpretation Radiology Interpretation By: Radiologist Radiology Results: Negative Exam Interpreted: CT Scan Critical Care Note - Critical Care Note Total Time (mins): 0 Course - Course Hematology/Chemistry: 08/02/17 20:10 08/02/17 20:10 Orders, Labs, Meds: Lab Review 08/02/17 08/02/17 08/02/17 20:06 20:10 20:10 WBC 6.80 RBC 4.56 L Hgb 13.3 L Hct 37.0 L MCV 81.1 MCH 29.2 MCHC 35.9 H RDW Coeff of Steven 12.1 Plt Count 185 Immature Gran % (Auto) 0.1 Neut % (Auto) 53.7 Lymph % (Auto) 36.6 [place] % (Auto) 7.1 Eos % (Auto) 1.8 Baso % (Auto) 0.7 Immature Gran # (Auto) 0.0 Neut # 3.7 Lymph # 2.5 [place] # 0.5 Eos # 0.1 Baso # 0.1 Sodium 140 Potassium 3.5 Chloride 106 Carbon Dioxide 26 Anion Gap 11.5 BUN 8 Creatinine 0.71 Estimated GFR (MDRD) 131.00 BUN/Creatinine Ratio 11.26 Glucose 85 Calcium 9.5 Total Bilirubin 0.52 AST 16 ALT 15 Alkaline Phosphatase 47 L Total Protein 7.3 Albumin 4.2 Globulin 3.1 Albumin/Globulin Ratio 1.35 Amylase 54 Lipase 31 Urine Color Urine Clarity Urine pH Ur Specific [place] Urine Protein Urine Glucose (UA) Urine Ketones Urine Blood Urine Nitrite Urine Bilirubin Urine Urobilinogen Ur Leukocyte Esterase Influenza A (Rapid) Negative Influenza B (Rapid) Negative 08/02/17 20:28 WBC RBC Hgb Hct MCV MCH MCHC RDW Coeff of Steven Plt Count Immature Gran % (Auto) Neut % (Auto) Lymph % (Auto) [place] % (Auto) Eos % (Auto) Baso % (Auto) Immature Gran # (Auto) Neut # Lymph # [place] # Eos # Baso # Sodium Potassium Chloride Carbon Dioxide Anion Gap BUN Creatinine Estimated GFR (MDRD) BUN/Creatinine Ratio Glucose Calcium Total Bilirubin AST ALT Alkaline Phosphatase Total Protein Albumin Globulin Albumin/Globulin Ratio Amylase Lipase Urine Color Yellow Urine Clarity Clear Urine pH 7.0 Ur Specific [place] 1.015 Urine Protein Negative Urine Glucose (UA) Negative Urine Ketones Negative Urine Blood Negative Urine Nitrite Negative Urine Bilirubin Negative Urine Urobilinogen 4.0 Ur Leukocyte Esterase Negative Influenza A (Rapid) Influenza B (Rapid) Orders Category Date Time Status Bladder Scan [ED BLADDER SCAN] .ONCE EMERGENCY 08/02/17 20:01 Active AMYLASE Stat LAB 08/02/17 20:10 Completed CBC W/ AUTO DIFF Stat LAB 08/02/17 20:10 Completed COMPREHENSIVE METABOLIC PANEL Stat LAB 08/02/17 20:10 Completed ESR Stat LAB 08/02/17 20:10 Received LIPASE Stat LAB 08/02/17 20:10 Completed MOLECULAR GROUP A STREP Stat LAB 08/02/17 20:06 Results RAPID FLU A/B Stat LAB 08/02/17 20:06 Completed STREP SCREEN Stat LAB 08/02/17 20:06 Results URINALYSIS C & S IF INDICATED Stat LAB 08/02/17 20:28 Completed Hydromorphone HCl/Pf [Dilaudid 2 mg/ml Syringe] MEDS 08/02/17 20:33 Discontinued 2 mg IM ONCE STA Promethazine HCl [Phenergan 25 mg/ml Vial] MEDS 08/02/17 20:33 Discontinued 25 mg IM ONCE STA CT ABDOMEN/PELVIS WO CONTRAST Stat RADS 08/02/17 20:01 Completed Medications Discontinued Medications Generic Name Dose Route Start Last Admin Trade Name Nickq PRN Reason Stop Dose Admin Hydromorphone HCl 2 mg 08/02/17 20:33 08/02/17 20:41 Dilaudid 2 Mg/Ml Syringe IM 08/02/17 20:34 2 mg ONCE STA Administration Promethazine HCl 25 mg 08/02/17 20:33 08/02/17 20:41 Phenergan 25 Mg/Ml Vial IM 08/02/17 20:34 25 mg ONCE STA Administration Vital Signs: Temp Pulse Resp BP Pulse Ox 08/02/17 19:52 97.9 F 90 20 125/79 96 Departure - Departure Time of Disposition: 20:50 Disposition: HOME SELF-CARE Discharge Problem: Abdominal pain Instructions: Abdominal Pain (ED) Condition: Good Pt referred to PMD for follow-up: Yes Additional Instructions: you need to get your colonoscopy completed Allergies/Adverse Reactions: Allergies dicyclomine [From Bentyl] Adverse Reaction (Unknown, Verified 07/31/17 23:18) amoxicillin [Amoxicillin] Adverse Reaction (Verified 07/31/17 23:18) Swelling clindamycin Adverse Reaction (Verified 07/31/17 23:18) Unknown states it is causing a bad bacteria to grow in his stomach per Dr. Luna at [facility] dexamethasone [From Decadron] Adverse Reaction (Verified 07/31/17 23:18) ketorolac [From Toradol] Adverse Reaction (Verified 07/31/17 23:18) paroxetine HCl [From Paxil] Adverse Reaction (Verified 07/31/17 23:18) Penicillins Adverse Reaction (Verified 07/31/17 23:18) Swelling rofecoxib [From Vioxx] Adverse Reaction (Verified 07/31/17 23:18) Sulfa (Sulfonamide Antibiotics) Adverse Reaction (Verified 07/31/17 23:18) Rash sulfamethoxazole [From Bactrim] Adverse Reaction (Verified 07/31/17 23:18) Swelling tramadol Adverse Reaction (Verified 07/31/17 23:18) trimethoprim [From Bactrim] Adverse Reaction (Verified 07/31/17 23:18) Swelling swelling in throat Home Medications: Ambulatory Orders Ranitidine HCl [Zantac] 150 mg PO TID 07/13/17 Disposition Discussed With: Patient, Family
[2017-08-02 20:55] LABS: ERYTHROCYTE SEDIMENTATION RATE 2 mm/hr (0-15); ESR INTERNAL QC INTERNAL QC VALID
== END 2017-08-02 20:55 | disposition home or self-care (01) ==
LOC: ED 19:50
DX: R10.9 Unspecified abdominal pain (principal); F17.210 Nicotine dependence, cigarettes, uncomplicated
CPT/HCPCS: 36415; 80053; 81001; 82150; 83690; 85025; 85651; 87651; 87804; 87880; 96372; 99283

== ENCOUNTER 2017-08-04 23:00 | Emergency (ER) ==
[2017-08-04 23:07] VITALS: BP 115/74; TEMP 97; BMI 24.4
[2017-08-04] MEDS ORDERED: PHENERGAN 25 MG/ML VIAL IM STA (23:13)
[2017-08-04] MEDS ORDERED: DILAUDID 2 MG/ML SYRINGE IM STA ×2 (23:13→23:30)
--- NOTE | 2017-08-04 23:42 | ED.PDOC ---
General ED Provider: Dr. MELO NATION-ER Chief Complaint: Headache Stated Complaint: SHWETA GOT A MIGRAINE Time Seen by Physician: 23:05 Mode of Arrival: Walk-In Information Source: Patient Exam Limitations: No limitations Primary Care Provider: DELLA REYNOLDS Nursing and Triage Documentation Reviewed and Agree: No (HE SAYS ITS JUST LIKE HIS PREVIOUS MIGRAINE NEAL) Neurological Complaint Exam - Headache Complaint/Exam Onset: Gradual Duration: SEVERAL HOURS Symptoms Are: Still present Timing: Constant Episodes Lasting: Hours Worst Headache Ever: No Initial Severity: Mild Current Severity: Moderate Location: Diffuse Character: Reports: Dull, Throbbing, Pressure, Migraine Aggravating: Reports: Bright lights Alleviating: Reports: None Associated Signs and Symptoms: Reports: Nausea. Denies: Dizziness, Seizure, Vomiting, Sinus pressure, Fever, Neck pain, Neck stiffness, Decreased LOC, Visual changes Related History: Reports: Similar episode Related Surgical History: Reports: None SAH Risk Factors: Reports: None Meningitis Risk Factors: Reports: None SDH Risk Factors: Reports: None Temporal Arteritis Risk Factors: Reports: Normal Head CT Within Last 12 Months: Yes Fundoscopic Exam: Present: Normal Findings Papilledema Present: No Temporal Artery Tenderness: Present: None Sinus Tenderness: Present: None TMJ Tenderness: Present: None Meningeal Signs Positive: No Pain on Passive Flexion-Positive Kernig's: No ROM Limited In: No Limitiations Focal Weakness: Present: None Focal Sensory Loss: Present: None Gait: Normal Nystagmus Present: No Gag Reflex Present: No [id number]: Normal Findings Babinski Sign: Negative Right, Negative Left Heel to Toe Normal: Yes Differential Diagnoses: Migraine Review of Systems - Review Of Systems Constitutional: Reports: No symptoms Eyes: Reports: No symptoms Ears, Nose, Mouth, Throat: Reports: No symptoms Respiratory: Reports: No symptoms Cardiac: Reports: No symptoms GI: Reports: Nausea : Reports: No symptoms Musculoskeletal: Reports: No symptoms Skin: Reports: No symptoms Neurological: Reports: Headache Endocrine: Reports: No symptoms Hematologic/Lymphatic: Reports: No symptoms All Other Systems: Reviewed and Negative Past Medical History - Past Medical History Previously Healthy: No Endocrine: Reports: None Cardiovascular: Reports: Hypertension Respiratory: Reports: Asthma Hematological: Reports: None Gastrointestinal: Reports: GERD Genitourinary: Reports: None Neuro/Psych: Reports: Migraine, Anxiety, Depression, Bipolar Disorder Musculoskeletal: Reports: None Cancer: Reports: None Other Pertinent Past Medical History: Dental Caries, Hypoglycemia, C-diff. - Surgical History General Surgical History: Reports: Other (dental extractions one week ago . PE TUBES , Recent fecal matter transplant ) - Family History Family History: Reports: Unknown - Social History Smoking Status: Vaping, Heavy tobacco smoker, Current every day smoker Hx Substance Use: No Alcohol Screening: None - Immunizations Tetanus Shot up to Date: Yes Influenza Vaccine within 12 Months: No Pneumococcal Vaccine up to Date: No Physical Exam - Physical Exam Appearance: Well-appearing, No pain distress, Well-nourished Pain Distress: Moderate Eyes: PRATIMA, EOMI, Conjunctiva clear ENT: Ears normal, Nose normal, Oropharynx normal Neck: Supple Respiratory: Airway patent, Breath sounds clear, Breath sounds equal, Respirations nonlabored Cardiovascular: RRR GI/: Soft, Nontender, No masses, Bowel sounds normal, No Organomegaly Musculoskeletal: Normal strength, ROM intact, No edema, No calf tenderness Skin: Warm, Dry, Normal color Neurological: Sensation intact, Motor intact, Reflexes intact, Cranial nerves intact, Alert, Oriented Psychiatric: Affect appropriate, Mood appropriate Re-Evaluation - Re-Evaluation Time of Re-Evaluation: 23:42 Status: Improved Vital Signs Stable: Yes Pain Level: 1 Appearance: NAD Lungs: Clear Skin: Warm and Dry Neuro: Alert and Oriented X3 CV: RRR Critical Care Note - Critical Care Note Total Time (mins): 0 Course - Course Orders, Labs, Meds: Orders Category Date Time Status Hydromorphone HCl/Pf [Dilaudid 2 mg/ml Syringe] MEDS 08/04/17 23:30 Discontinued 1 mg IM ONCE STA Promethazine HCl [Phenergan 25 mg/ml Vial] MEDS 08/04/17 23:13 Discontinued 25 mg IM ONCE STA Medications Discontinued Medications Generic Name Dose Route Start Last Admin Trade Name Freq PRN Reason Stop Dose Admin Hydromorphone HCl 1 mg 08/04/17 23:30 08/04/17 23:35 Dilaudid 2 Mg/Ml Syringe IM 08/04/17 23:31 1 mg ONCE STA Administration Promethazine HCl 25 mg 08/04/17 23:13 08/04/17 23:34 Phenergan 25 Mg/Ml Vial IM 08/04/17 23:14 25 mg ONCE STA Administration Vital Signs: Temp Pulse Resp BP Pulse Ox 08/04/17 23:01 97 F L 87 20 115/74 98 Departure - Departure Time of Disposition: 23:42 Disposition: HOME SELF-CARE Discharge Problem: Migraine Qualifiers: Migraine type: unspecified Status migrainosus presence: without status migrainosus Intractability: not intractable Qualified Code(s): G43.909 - Migraine, unspecified, not intractable, without status migrainosus Instructions: Migraine Headache (ED) Condition: Good Pt referred to PMD for follow-up: Yes Additional Instructions: F/U WITH PCP Allergies/Adverse Reactions: Allergies dicyclomine [From Bentyl] Adverse Reaction (Unknown, Verified 08/04/17 23:08) amoxicillin [Amoxicillin] Adverse Reaction (Verified 08/04/17 23:08) Swelling clindamycin Adverse Reaction (Verified 08/04/17 23:08) Unknown states it is causing a bad bacteria to grow in his stomach per Dr. Luna at [facility] dexamethasone [From Decadron] Adverse Reaction (Verified 08/04/17 23:08) ketorolac [From Toradol] Adverse Reaction (Verified 08/04/17 23:08) paroxetine HCl [From Paxil] Adverse Reaction (Verified 08/04/17 23:08) Penicillins Adverse Reaction (Verified 08/04/17 23:08) Swelling rofecoxib [From Vioxx] Adverse Reaction (Verified 08/04/17 23:08) Sulfa (Sulfonamide Antibiotics) Adverse Reaction (Verified 08/04/17 23:08) Rash sulfamethoxazole [From Bactrim] Adverse Reaction (Verified 08/04/17 23:08) Swelling tramadol Adverse Reaction (Verified 07/31/17 23:18) trimethoprim [From Bactrim] Adverse Reaction (Verified 07/31/17 23:18) Swelling swelling in throat Home Medications: Ambulatory Orders Ranitidine HCl [Zantac] 150 mg PO TID 07/13/17 Disposition Discussed With: Patient, Family
== END 2017-08-05 00:08 | disposition home or self-care (01) ==
LOC: ED 23:00
DX: G43.909 Migraine, unspecified, not intractable, without status migrainosus (principal); F17.210 Nicotine dependence, cigarettes, uncomplicated
CPT/HCPCS: 96372; 99283

== ENCOUNTER 2017-08-05 23:00 | Emergency (ER) ==
[2017-08-05 23:01] VITALS: BMI 24.4
[2017-08-05 23:11] VITALS: BP 162/75; TEMP 98.3
[2017-08-05] MEDS ORDERED: IMITREX SUBCUT STA (23:31)
[2017-08-05] MEDS ORDERED: ZOFRAN 4 MG/2 ML IM STA (23:31)
--- NOTE | 2017-08-05 23:41 | ED.PDOC ---
General ED Provider: Dr. DOUG GUADARRAMA Chief Complaint: Headache Stated Complaint: pt was seen last night with headaches given Dilaudid comes back with headach recurrent. Denies any fever or chills. Has no nausea medications. Time Seen by Physician: 23:15 Mode of Arrival: Walk-In Information Source: Patient, Family Exam Limitations: No limitations Primary Care Provider: DELLA REYNOLDS Nursing and Triage Documentation Reviewed and Agree: Yes Review of Systems - Review Of Systems Constitutional: Reports: No symptoms Eyes: Reports: Photophobia Ears, Nose, Mouth, Throat: Reports: No symptoms Respiratory: Reports: No symptoms Cardiac: Reports: No symptoms GI: Reports: No symptoms : Reports: No symptoms Musculoskeletal: Reports: No symptoms Skin: Reports: No symptoms Neurological: Reports: Anxiety, Headache Endocrine: Reports: No symptoms Hematologic/Lymphatic: Reports: No symptoms All Other Systems: Reviewed and Negative Past Medical History - Past Medical History Previously Healthy: No Endocrine: Reports: None Cardiovascular: Reports: Hypertension Respiratory: Reports: Asthma Hematological: Reports: None Gastrointestinal: Reports: GERD Genitourinary: Reports: None Neuro/Psych: Reports: Migraine, Anxiety, Depression, Bipolar Disorder Musculoskeletal: Reports: None Cancer: Reports: None Other Pertinent Past Medical History: Dental Caries, Hypoglycemia, C-diff. - Surgical History General Surgical History: Reports: Other (dental extractions one week ago . PE TUBES , Recent fecal matter transplant ) - Family History Family History: Reports: Unknown - Social History Smoking Status: Vaping, Heavy tobacco smoker, Current every day smoker Hx Substance Use: No Alcohol Screening: None - Immunizations Tetanus Shot up to Date: Yes Influenza Vaccine within 12 Months: No Pneumococcal Vaccine up to Date: No Physical Exam - Physical Exam Appearance: Ill-appearing, Well-nourished Ill-appearing: Mild Pain Distress: Severe Eyes: PRATIMA, EOMI, Conjunctiva clear ENT: Ears normal, Nose normal, Oropharynx normal Neck: Supple Respiratory: Airway patent, Breath sounds clear, Breath sounds equal, Respirations nonlabored Cardiovascular: RRR, Pulses normal, No rub, No murmur GI/: Soft, Nontender, No masses, Bowel sounds normal, No Organomegaly Musculoskeletal: Normal strength, ROM intact, No edema, No calf tenderness Skin: Warm, Dry, Normal color Neurological: Sensation intact, Motor intact, Reflexes intact, Cranial nerves intact, Alert, Oriented Psychiatric: Anxious Critical Care Note - Critical Care Note Total Time (mins): 0 Comments: Patient did not mention to us the he has an allergy to imitrex. so when it was ordered but he states he remembered he was allergic to it developed rash 1 year ago. He demanded Dilaudid which he got last night. Took only zofran. Course - Course Orders, Labs, Meds: Orders Category Date Time Status Ondansetron HCl/Pf [Zofran 4 mg/2 ml] MEDS 08/05/17 23:31 Discontinued 4 mg IM ONCE STA Sumatriptan Succinate [Imitrex] MEDS 08/05/17 23:31 Discontinued 6 mg SUBCUT ONCE STA Medications Discontinued Medications Generic Name Dose Route Start Last Admin Trade Name Freq PRN Reason Stop Dose Admin Ondansetron HCl 4 mg 08/05/17 23:31 08/06/17 00:12 Zofran 4 Mg/2 Ml IM 08/05/17 23:32 4 mg ONCE STA Administration Sumatriptan Succinate 6 mg 08/05/17 23:31 08/06/17 00:14 Imitrex SUBCUT 08/05/17 23:32 Not Given ONCE STA Vital Signs: Temp Pulse Resp BP Pulse Ox 08/05/17 23:05 98.3 F 93 H 20 162/75 H 98 Departure - Departure Time of Disposition: 23:59 Disposition: HOME SELF-CARE Discharge Problem: Headache Migraine Qualifiers: Migraine type: unspecified Status migrainosus presence: without status migrainosus Intractability: not intractable Qualified Code(s): G43.909 - Migraine, unspecified, not intractable, without status migrainosus Instructions: Migraine Headache (ED) Condition: Fair Pt referred to PMD for follow-up: No (walked out without instructions. ) Additional Instructions: Take medications as prescribed Followup with PCP in 3 days. Prescriptions: Butalb/Acetaminophen/Caffeine [Fioricet] 1 each PO TID PRN #15 tablet PRN Reason: Headache Ondansetron HCl [Zofran Tab] 4 mg PO Q8H PRN #14 tablet PRN Reason: Nausea / Vomiting Allergies/Adverse Reactions: Allergies dicyclomine [From Bentyl] Adverse Reaction (Unknown, Verified 08/05/17 23:16) amoxicillin [Amoxicillin] Adverse Reaction (Verified 08/05/17 23:16) Swelling clindamycin Adverse Reaction (Verified 08/05/17 23:16) Unknown states it is causing a bad bacteria to grow in his stomach per Dr. Jeremy trent Faviola dexamethasone [From Decadron] Adverse Reaction (Verified 08/05/17 23:16) ketorolac [From Toradol] Adverse Reaction (Verified 08/05/17 23:16) paroxetine HCl [From Paxil] Adverse Reaction (Verified 08/05/17 23:16) Penicillins Adverse Reaction (Verified 08/05/17 23:16) Swelling rofecoxib [From Vioxx] Adverse Reaction (Verified 08/05/17 23:16) Sulfa (Sulfonamide Antibiotics) Adverse Reaction (Verified 08/05/17 23:16) Rash sulfamethoxazole [From Bactrim] Adverse Reaction (Verified 08/05/17 23:16) Swelling sumatriptan [From Imitrex] Adverse Reaction (Verified 08/06/17 00:16) Rash tramadol Adverse Reaction (Verified 08/05/17 23:16) trimethoprim [From Bactrim] Adverse Reaction (Verified 08/05/17 23:16) Swelling swelling in throat Home Medications: Ambulatory Orders Ranitidine HCl [Zantac] 150 mg PO TID 07/13/17 Butalb/Acetaminophen/Caffeine [Fioricet] 1 each PO TID PRN #15 tablet 08/05/17 Ondansetron HCl [Zofran Tab] 4 mg PO Q8H PRN #14 tablet 08/05/17 Disposition Discussed With: Patient, Family
== END 2017-08-06 00:40 | disposition home or self-care (01) ==
LOC: ED 23:00
DX: G43.909 Migraine, unspecified, not intractable, without status migrainosus (principal); F17.210 Nicotine dependence, cigarettes, uncomplicated
CPT/HCPCS: 96372; 99283

== ENCOUNTER 2017-08-16 00:12 | Emergency (ER) ==
[2017-08-16] MEDS ORDERED: DILAUDID 2 MG/ML SYRINGE IM STA (00:15)
[2017-08-16] MEDS ORDERED: PHENERGAN 25 MG/ML VIAL IM STA (00:15)
[2017-08-16 00:22] VITALS: BP 108/74; TEMP 99.5
--- NOTE | 2017-08-16 00:59 | CT ---
EXAM: CT lumbar spine without intravenous contrast 08/16/2017. Sagittal and coronal reformatted simi ges obtained HISTORY: Back pain COMPARISON: MRI lumbar spine 05/21/2017. CT lumbar spine 04/26/2017, CT lumbar spine 07/14/2017 FINDINGS: Normal anatomic alignment is maintained. Vertebral bodies appear intact and the facet ted nts align normally There is no evidence of fracture or subluxation at any level. There is no spinal stenosis identified at any level. Mild disc space narrowing at L1-L2. Minimal left neural foraminal narrowing at L5-S1 as described on the prior MRI. IMPRESSION: Stable examination. No acute process.
--- NOTE | 2017-08-16 01:05 | CT ---
EXAM: CT thoracic spine without intravenous contrast 08/16/2017. Sagittal and coronal reformatted i mages obtained HISTORY: Back pain. COMPARISON: 07/14/2017 FINDINGS: Normal anatomic alignment is maintained. Vertebral bodies appear intact. The facet joint s align normally. Chronic degenerative endplate changes. There are small end plate defects at T8, T10 and T11. These may represent small Schmorl's nodes. Tiny anterior osteophyte at T12. No fracture or subluxation identified at any level. IMPRESSION: No acute osseous abnormality of the thoracic spine.
--- NOTE | 2017-08-16 01:38 | ED.PDOC ---
General ED Provider: Dr. MELO NATION-ER Chief Complaint: Back Pain Stated Complaint: my back hurts=-in pain management--had shots today Time Seen by Physician: 00:15 Mode of Arrival: Walk-In Information Source: Patient, Family Exam Limitations: No limitations Primary Care Provider: DELLA REYNOLDS Nursing and Triage Documentation Reviewed and Agree: Yes Musculoskeletal Complaint Exam - Back Pain Complaint/Exam Mechanism of Injury: Reports: No known trauma Symptoms Are: Still present Initial Severity: Moderate Current Severity: Moderate Location: Reports: Diffuse Character: Reports: Dull, Aching, Spasmodic Aggravating: Reports: Movements, Lifting, Bending, Walking Associated Signs and Symptoms: Denies: Swelling, Redness, Bruising, Fever, Weakness, Numbness, Tingling, Abdominal pain, Flank pain, Bladder incontinence, Bowel incontinence, Weight loss, Pain with weight bearing Related History: Reports: Similar episode Focal Tenderness: Yes Paraspinal Muscle Tenderness: Yes Paraspinal Muscle Spasm: No Scoliosis: Yes Lordosis: No Kyphosis: No SLR Test: Right Negative, Left Negative Hip Motion Testing Pain: Right Negative, Left Negative Focal Weakness: Present: None Focal Sensory Loss: Present: None Gait: Present: Abnormal Differential Diagnoses: Arthritis, Herniated Disk, Strain, Sprain Review of Systems - Review Of Systems Constitutional: Reports: No symptoms Eyes: Reports: No symptoms Ears, Nose, Mouth, Throat: Reports: No symptoms Respiratory: Reports: No symptoms Cardiac: Reports: No symptoms GI: Reports: No symptoms : Reports: No symptoms Musculoskeletal: Reports: Back pain Skin: Reports: No symptoms Neurological: Reports: No symptoms Endocrine: Reports: No symptoms Hematologic/Lymphatic: Reports: No symptoms All Other Systems: Reviewed and Negative Past Medical History - Past Medical History Previously Healthy: No Endocrine: Reports: None Cardiovascular: Reports: Hypertension Respiratory: Reports: Asthma Hematological: Reports: None Gastrointestinal: Reports: GERD Genitourinary: Reports: None Neuro/Psych: Reports: Migraine, Anxiety, Depression, Bipolar Disorder Musculoskeletal: Reports: None Cancer: Reports: None Other Pertinent Past Medical History: Dental Caries, Hypoglycemia, C-diff. - Surgical History General Surgical History: Reports: Other (dental extractions one week ago . PE TUBES , Recent fecal matter transplant ) - Family History Family History: Reports: Unknown - Social History Smoking Status: Vaping, Heavy tobacco smoker, Current every day smoker Hx Substance Use: Yes Alcohol Screening: None - Immunizations Tetanus Shot up to Date: Yes Influenza Vaccine within 12 Months: No Pneumococcal Vaccine up to Date: No Physical Exam - Physical Exam Appearance: Well-appearing, No pain distress, Well-nourished Pain Distress: Mild Eyes: PRATIMA, EOMI, Conjunctiva clear ENT: Ears normal, Nose normal, Oropharynx normal Neck: Supple Respiratory: Airway patent, Breath sounds clear, Breath sounds equal, Respirations nonlabored Cardiovascular: RRR, Pulses normal, No rub, No murmur GI/: Soft, Nontender, No masses, Bowel sounds normal, No Organomegaly Musculoskeletal: Normal strength Skin: Warm, Dry, Normal color Neurological: Sensation intact, Motor intact, Reflexes intact, Cranial nerves intact, Alert, Oriented Psychiatric: Affect appropriate, Mood appropriate Interpretation - Radiology Interpretation Radiology Interpretation By: Radiologist Radiology Results: Negative Exam Interpreted: CT Scan Re-Evaluation - Re-Evaluation Time of Re-Evaluation: 01:38 Status: Improved Vital Signs Stable: Yes Pain Level: 1 Appearance: NAD Lungs: Clear Skin: Warm and Dry Neuro: Alert and Oriented X3 CV: RRR Critical Care Note - Critical Care Note Total Time (mins): 0 Course - Course Orders, Labs, Meds: Orders Category Date Time Status Hydromorphone HCl/Pf [Dilaudid 2 mg/ml Syringe] MEDS 08/16/17 00:15 Discontinued 2 mg IM ONCE STA Promethazine HCl [Phenergan 25 mg/ml Vial] MEDS 08/16/17 00:15 Discontinued 25 mg IM ONCE STA CT LUMBAR SPINE W/O CONTRAST Stat RADS 08/16/17 00:[address] THORACIC SPINE W/O CONTRAST Stat RADS 08/16/17 00:14 Completed Medications Discontinued Medications Generic Name Dose Route Start Last Admin Trade Name Freq PRN Reason Stop Dose Admin Hydromorphone HCl 2 mg 08/16/17 00:15 08/16/17 00:48 Dilaudid 2 Mg/Ml Syringe IM 08/16/17 00:16 2 mg ONCE STA Administration Promethazine HCl 25 mg 08/16/17 00:15 08/16/17 00:48 Phenergan 25 Mg/Ml Vial IM 08/16/17 00:16 25 mg ONCE STA Administration Vital Signs: Temp Pulse Resp BP Pulse Ox 08/16/17 00:13 99.5 F 79 20 108/74 97 Departure - Departure Time of Disposition: 01:39 Disposition: HOME SELF-CARE Discharge Problem: Backache Instructions: Chronic Back Pain (ED) Condition: Good Pt referred to PMD for follow-up: Yes Additional Instructions: keep f/u with pain management Allergies/Adverse Reactions: Allergies dicyclomine [From Bentyl] Adverse Reaction (Unknown, Verified 08/16/17 00:22) amoxicillin [Amoxicillin] Adverse Reaction (Verified 08/16/17 00:22) Swelling clindamycin Adverse Reaction (Verified 08/16/17 00:22) Unknown states it is causing a bad bacteria to grow in his stomach per Dr. Jeremy trent [facility] dexamethasone [From Decadron] Adverse Reaction (Verified 08/16/17 00:22) ketorolac [From Toradol] Adverse Reaction (Verified 08/16/17 00:22) paroxetine HCl [From Paxil] Adverse Reaction (Verified 08/16/17 00:22) Penicillins Adverse Reaction (Verified 08/16/17 00:22) Swelling rofecoxib [From Vioxx] Adverse Reaction (Verified 08/16/17 00:22) Sulfa (Sulfonamide Antibiotics) Adverse Reaction (Verified 08/16/17 00:22) Rash sulfamethoxazole [From Bactrim] Adverse Reaction (Verified 08/16/17 00:22) Swelling sumatriptan [From Imitrex] Adverse Reaction (Verified 08/16/17 00:22) Rash tramadol Adverse Reaction (Verified 08/16/17 00:22) trimethoprim [From Bactrim] Adverse Reaction (Verified 08/16/17 00:22) Swelling swelling in throat Home Medications: Ambulatory Orders Ranitidine HCl [Zantac] 150 mg PO TID 07/13/17 Ondansetron HCl [Zofran Tab] 4 mg PO Q8H PRN #14 tablet 08/05/17 Hydrocodone/Acetaminophen [Narka 5-325 Tablet] 1 tab PO TID PRN 08/16/17 Disposition Discussed With: Patient, Family
== END 2017-08-16 01:49 | disposition home or self-care (01) ==
LOC: ED 00:12
DX: M54.9 Dorsalgia, unspecified (principal); G89.29 Other chronic pain; F17.210 Nicotine dependence, cigarettes, uncomplicated
CPT/HCPCS: 96372; 99282

== ENCOUNTER 2017-08-30 20:17 | Emergency (ER) ==
[2017-08-30 20:20] VITALS: BP 140/86; TEMP 98; BMI 22.0
[2017-08-30] MEDS ORDERED: PERCOCET 7.5-325 PO STA (20:26)
--- NOTE | 2017-08-30 20:32 | ED.PDOC ---
General ED Provider: Dr. MELO NATION-ER Chief Complaint: Back Pain Stated Complaint: my back hurts--i strained it Time Seen by Physician: 20:30 Mode of Arrival: Walk-In Information Source: Patient Exam Limitations: No limitations Primary Care Provider: DELLA REYNOLDS Nursing and Triage Documentation Reviewed and Agree: Yes Reviewed sepsis parameters & appropriate labs ordered?: Yes System Inflammatory Response Syndrome: Not Applicable Sepsis Protocol: For patient's 13 years and over: Temp is 96.8 and below OR 101 and greater Pulse >90 BPM Resp >20/minute Acutely Altered Mental Status Are patient's symptoms suggestive of a new infection, such as: -Pneumonia -Skin, Soft Tissue -Endocarditis -UTI -Bone, Joint Infection -Implantable Device -Acute Abdominal Infection -Wound Infection -Meningitis -Blood Stream Catheter Infection -Unknown Musculoskeletal Complaint Exam - Back Pain Complaint/Exam Mechanism of Injury: Reports: No known trauma Onset/Duration: several mos Symptoms Are: Still present Timing: Constant Initial Severity: Mild Current Severity: Moderate Location: Reports: Discrete Character: Reports: Dull, Aching Aggravating: Reports: Movements, Lifting, Bending, Walking Alleviating: Reports: None Associated Signs and Symptoms: Denies: Swelling, Redness, Bruising, Fever, Weakness, Numbness, Tingling, Abdominal pain, Flank pain, Bladder incontinence, Bowel incontinence, Weight loss, Pain with weight bearing Related History: Reports: Previous back injury Cauda Equina Risk Factors: Reports: None Epidural Abcess Risk Factors: Reports: None Related Surgical History: Reports: None Focal Tenderness: Yes Paraspinal Muscle Tenderness: Yes Paraspinal Muscle Spasm: No Scoliosis: No Lordosis: No Kyphosis: No SLR Test: Right Negative, Left Negative Hip Motion Testing Pain: Right Negative, Left Negative Focal Weakness: Present: None Focal Sensory Loss: Present: None Gait: Present: Abnormal Differential Diagnoses: Strain, Sprain Review of Systems - Review Of Systems Constitutional: Reports: No symptoms Eyes: Reports: No symptoms Ears, Nose, Mouth, Throat: Reports: No symptoms Respiratory: Reports: No symptoms Cardiac: Reports: No symptoms GI: Reports: No symptoms : Reports: No symptoms Musculoskeletal: Reports: Back pain Skin: Reports: No symptoms Neurological: Reports: No symptoms Endocrine: Reports: No symptoms Hematologic/Lymphatic: Reports: No symptoms All Other Systems: Reviewed and Negative Past Medical History - Past Medical History Previously Healthy: No Endocrine: Reports: None Cardiovascular: Reports: Hypertension Respiratory: Reports: Asthma Hematological: Reports: None Gastrointestinal: Reports: GERD Genitourinary: Reports: None Neuro/Psych: Reports: Migraine, Anxiety, Depression, Bipolar Disorder Musculoskeletal: Reports: None Cancer: Reports: None Other Pertinent Past Medical History: Dental Caries, Hypoglycemia, C-diff. - Surgical History General Surgical History: Reports: Other (dental extractions one week ago . PE TUBES , Recent fecal matter transplant ) - Family History Family History: Reports: Unknown - Social History Smoking Status: Vaping, Heavy tobacco smoker, Current every day smoker Hx Substance Use: No Alcohol Screening: Occasionally - Immunizations Tetanus Shot up to Date: Yes Influenza Vaccine within 12 Months: No Pneumococcal Vaccine up to Date: No Physical Exam - Physical Exam Appearance: Well-appearing, No pain distress, Well-nourished Eyes: PRATIMA, EOMI, Conjunctiva clear ENT: Ears normal, Nose normal, Oropharynx normal Neck: Supple Respiratory: Airway patent, Breath sounds clear, Breath sounds equal, Respirations nonlabored Cardiovascular: RRR, Pulses normal, No rub, No murmur GI/: Soft, Nontender, No masses, Bowel sounds normal, No Organomegaly Musculoskeletal: Limited ROM Skin: Warm Neurological: Sensation intact, Motor intact, Reflexes intact, Cranial nerves intact, Alert, Oriented Psychiatric: Affect appropriate, Mood appropriate Critical Care Note - Critical Care Note Total Time (mins): 0 Course - Course Orders, Labs, Meds: Orders Category Date Time Status Oxycodone-Acetaminophe 7.5-325 [Percocet 7.5-325] MEDS 08/30/17 20:26 Discontinued 1 tab PO ONCE STA Medications Discontinued Medications Generic Name Dose Route Start Last Admin Trade Name Freq PRN Reason Stop Dose Admin Oxycodone/Acetaminophen 1 tab 08/30/17 20:26 Percocet 7.5-325 PO 08/30/17 20:27 ONCE STA Vital Signs: Temp Pulse Resp BP Pulse Ox 08/30/17 20:18 98 F 98 H 14 140/86 97 Departure - Departure Time of Disposition: 20:32 Disposition: HOME SELF-CARE Discharge Problem: Backache Instructions: Low Back Strain (ED) Condition: Good Pt referred to PMD for follow-up: Yes Additional Instructions: percocet 7.5mg q 6hrs prn pain #10--f/u with pcp Allergies/Adverse Reactions: Allergies dicyclomine [From Bentyl] Adverse Reaction (Unknown, Verified 08/16/17:) amoxicillin [Amoxicillin] Adverse Reaction (Verified 08/16/17:) Swelling clindamycin Adverse Reaction (Verified 08/16/17:) Unknown states it is causing a bad bacteria to grow in his stomach per Dr. Luna at [facility] dexamethasone [From Decadron] Adverse Reaction (Verified 08/16/17:22) ketorolac [From Toradol] Adverse Reaction (Verified 08/16/17:) paroxetine HCl [From Paxil] Adverse Reaction (Verified 08/16/17:) Penicillins Adverse Reaction (Verified 08/16/17:) Swelling rofecoxib [From Vioxx] Adverse Reaction (Verified 08/16/17:) Sulfa (Sulfonamide Antibiotics) Adverse Reaction (Verified 08/16/17:) Rash sulfamethoxazole [From Bactrim] Adverse Reaction (Verified 08/16/17:) Swelling sumatriptan [From Imitrex] Adverse Reaction (Verified 08/16/17:) Rash tramadol Adverse Reaction (Verified 08/16/17:22) trimethoprim [From Bactrim] Adverse Reaction (Verified 08/16/17:) Swelling swelling in throat Home Medications: Ambulatory Orders Ranitidine HCl [Zantac] 150 mg PO TID 07/13/17 Disposition Discussed With: Patient
== END 2017-08-30 21:00 | disposition home or self-care (01) ==
LOC: ED 20:17
DX: M54.9 Dorsalgia, unspecified (principal); F17.210 Nicotine dependence, cigarettes, uncomplicated
CPT/HCPCS: 96372; 99282

== ENCOUNTER 2017-09-02 19:44 | Emergency (ER) ==
[2017-09-02] MEDS ORDERED: DILAUDID 2 MG/ML SYRINGE IM STA (19:49)
[2017-09-02] MEDS ORDERED: PHENERGAN 25 MG/ML VIAL IM STA (19:49)
[2017-09-02 19:51] VITALS: BP 141/89; TEMP 98; BMI 22.4
--- NOTE | 2017-09-02 19:54 | ED.PDOC ---
General ED Provider: Dr. MELO NATION-ER Chief Complaint: Back Pain Stated Complaint: my back hurts into my legs Time Seen by Physician: 19:52 Mode of Arrival: Walk-In Information Source: Patient Exam Limitations: No limitations Primary Care Provider: DELLA REYNOLDS Nursing and Triage Documentation Reviewed and Agree: Yes Reviewed sepsis parameters & appropriate labs ordered?: Yes System Inflammatory Response Syndrome: Not Applicable Sepsis Protocol: For patient's 13 years and over: Temp is 96.8 and below OR 101 and greater Pulse >90 BPM Resp >20/minute Acutely Altered Mental Status Are patient's symptoms suggestive of a new infection, such as: -Pneumonia -Skin, Soft Tissue -Endocarditis -UTI -Bone, Joint Infection -Implantable Device -Acute Abdominal Infection -Wound Infection -Meningitis -Blood Stream Catheter Infection -Unknown Musculoskeletal Complaint Exam - Back Pain Complaint/Exam Mechanism of Injury: Reports: No known trauma Onset/Duration: several mos Symptoms Are: Still present Timing: Constant Initial Severity: Mild Current Severity: Moderate Location: Reports: Discrete (lumbar spine) Character: Reports: Dull, Aching Aggravating: Reports: Movements, Lifting, Bending, Walking Alleviating: Reports: None Associated Signs and Symptoms: Denies: Swelling, Redness, Bruising, Fever, Weakness, Numbness, Tingling, Abdominal pain, Flank pain, Bladder incontinence, Bowel incontinence, Weight loss, Pain with weight bearing Related History: Reports: Previous back injury TAD Risk Factors: Reports: None Cauda Equina Risk Factors: Reports: None Epidural Abcess Risk Factors: Reports: None Related Surgical History: Reports: None Focal Tenderness: Yes Paraspinal Muscle Tenderness: Yes Paraspinal Muscle Spasm: No Scoliosis: Yes Lordosis: No Kyphosis: No SLR Test: Right Negative, Left Negative Hip Motion Testing Pain: Right Negative, Left Negative Focal Weakness: Present: None Focal Sensory Loss: Present: None Gait: Present: Abnormal Differential Diagnoses: Other Review of Systems - Review Of Systems Constitutional: Reports: No symptoms Eyes: Reports: No symptoms Ears, Nose, Mouth, Throat: Reports: No symptoms Respiratory: Reports: No symptoms Cardiac: Reports: No symptoms GI: Reports: No symptoms : Reports: No symptoms Musculoskeletal: Reports: Back pain, Muscle pain, Muscle stiffness Skin: Reports: No symptoms Neurological: Reports: No symptoms Endocrine: Reports: No symptoms Hematologic/Lymphatic: Reports: No symptoms All Other Systems: Reviewed and Negative Past Medical History - Past Medical History Previously Healthy: No Endocrine: Reports: None Cardiovascular: Reports: Hypertension Respiratory: Reports: Asthma Hematological: Reports: None Gastrointestinal: Reports: GERD Genitourinary: Reports: None Neuro/Psych: Reports: Migraine, Anxiety, Depression, Bipolar Disorder Musculoskeletal: Reports: None Cancer: Reports: None Other Pertinent Past Medical History: Dental Caries, Hypoglycemia, C-diff. - Surgical History General Surgical History: Reports: Other (dental extractions one week ago . PE TUBES , Recent fecal matter transplant ) - Family History Family History: Reports: Unknown - Social History Smoking Status: Vaping, Heavy tobacco smoker, Current every day smoker Hx Substance Use: No Alcohol Screening: Occasionally Lives: With family - Immunizations Tetanus Shot up to Date: Yes Influenza Vaccine within 12 Months: No Pneumococcal Vaccine up to Date: No Physical Exam - Physical Exam Appearance: Well-appearing Pain Distress: Moderate Eyes: PRATIMA, EOMI, Conjunctiva clear ENT: Ears normal, Nose normal, Oropharynx normal Neck: Supple Respiratory: Airway patent Cardiovascular: RRR, Pulses normal, No rub, No murmur GI/: Soft, Nontender, No masses, Bowel sounds normal, No Organomegaly Musculoskeletal: Limited ROM Skin: Warm, Dry, Normal color Neurological: Sensation intact Psychiatric: Affect appropriate, Mood appropriate Critical Care Note - Critical Care Note Total Time (mins): 0 Course - Course Orders, Labs, Meds: Orders Category Date Time Status URINALYSIS C & S IF INDICATED Stat LAB 09/02/17 19:50 Uncollected URINE CULTURE Stat LAB 09/02/17 19:50 Uncollected Hydromorphone HCl/Pf [Dilaudid 2 mg/ml Syringe] MEDS 09/02/17 19:49 Discontinued 2 mg IM ONCE STA Promethazine HCl [Phenergan 25 mg/ml Vial] MEDS 09/02/17 19:49 Discontinued 25 mg IM ONCE STA Medications Discontinued Medications Generic Name Dose Route Start Last Admin Trade Name Freq PRN Reason Stop Dose Admin Hydromorphone HCl 2 mg 09/02/17 19:49 Dilaudid 2 Mg/Ml Syringe IM 09/02/17 19:50 ONCE STA Promethazine HCl 25 mg 09/02/17 19:49 Phenergan 25 Mg/Ml Vial IM 09/02/17 19:50 ONCE STA Vital Signs: Temp Pulse Resp BP Pulse Ox 09/02/17 19:45 98.0 F 74 16 141/89 H 98 Departure - Departure Time of Disposition: 19:54 Disposition: HOME SELF-CARE Discharge Problem: Chronic low back pain Qualifiers: Back pain laterality: unspecified Sciatica presence: without sciatica Qualified Code(s): M54.5 - Low back pain; G89.29 - Other chronic pain; G89.29 - Other chronic pain Instructions: Chronic Back Pain (ED) Condition: Good Pt referred to PMD for follow-up: Yes Additional Instructions: f/u with pcp and pain management Allergies/Adverse Reactions: Allergies dicyclomine [From Bentyl] Adverse Reaction (Unknown, Verified 08/16/17 00:22) amoxicillin [Amoxicillin] Adverse Reaction (Verified 08/16/17 00:22) Swelling clindamycin Adverse Reaction (Verified 08/16/17 00:22) Unknown states it is causing a bad bacteria to grow in his stomach per Dr. Luna at [facility] dexamethasone [From Decadron] Adverse Reaction (Verified 08/16/17 00:22) ketorolac [From Toradol] Adverse Reaction (Verified 08/16/17 00:22) paroxetine HCl [From Paxil] Adverse Reaction (Verified 08/16/17 00:22) Penicillins Adverse Reaction (Verified 08/16/17 00:22) Swelling rofecoxib [From Vioxx] Adverse Reaction (Verified 08/16/17 00:22) Sulfa (Sulfonamide Antibiotics) Adverse Reaction (Verified 08/16/17 00:22) Rash sulfamethoxazole [From Bactrim] Adverse Reaction (Verified 08/16/17 00:22) Swelling sumatriptan [From Imitrex] Adverse Reaction (Verified 08/16/17 00:22) Rash tramadol Adverse Reaction (Verified 08/16/17 00:22) trimethoprim [From Bactrim] Adverse Reaction (Verified 08/16/17 00:22) Swelling swelling in throat Home Medications: Ambulatory Orders Ranitidine HCl [Zantac] 150 mg PO TID 07/13/17 Disposition Discussed With: Patient
== END 2017-09-02 20:15 | disposition home or self-care (01) ==
LOC: ED 19:44
DX: M54.5 Low back pain (principal); G89.29 Other chronic pain; F17.210 Nicotine dependence, cigarettes, uncomplicated
CPT/HCPCS: 81001; 87086; 96372; 99283

== ENCOUNTER 2017-09-04 07:57 | Emergency (ER) ==
[2017-09-04 08:09] VITALS: BP 116/76; TEMP 97.7; BMI 23.0
--- NOTE | 2017-09-04 08:19 | ED.PDOC ---
General ED Provider: Dr. MELO LEMUS Chief Complaint: Back Pain Stated Complaint: My low back is killing me. Very severe pain in Rt Lower back with sciatic neve pinching pain. Also complains of urinary burning. History or Epididymitis and just finished antibiotics. Time Seen by Physician: 08:25 Mode of Arrival: Walk-In Information Source: Patient Exam Limitations: No limitations Primary Care Provider: DELLA REYNOLDS Referred to ED by: Other (Pain management) Nursing and Triage Documentation Reviewed and Agree: Yes Reviewed sepsis parameters & appropriate labs ordered?: Yes System Inflammatory Response Syndrome: Not Applicable Sepsis Protocol: For patient's 13 years and over: Temp is 96.8 and below OR 101 and greater Pulse >90 BPM Resp >20/minute Acutely Altered Mental Status Are patient's symptoms suggestive of a new infection, such as: -Pneumonia -Skin, Soft Tissue -Endocarditis -UTI -Bone, Joint Infection -Implantable Device -Acute Abdominal Infection -Wound Infection -Meningitis -Blood Stream Catheter Infection -Unknown System Inflammatory Response Syndrome: Not Applicable Musculoskeletal Complaint Exam - Back Pain Complaint/Exam Mechanism of Injury: Reports: No known trauma, Other (Lifting and moving furniture) Symptoms Are: Still present Timing: Constant Episodes Lasting: Hours Initial Severity: Moderate Current Severity: Severe Location: Reports: Discrete, Radiating Character: Reports: Sharp, Aching, Spasmodic. Denies: Dull, Throbbing, Stiffness, Burning Aggravating: Reports: Movements, Lifting, Bending, Walking. Denies: Cough Alleviating: Reports: None, Rest, Position. Denies: OTC meds Associated Signs and Symptoms: Reports: Numbness, Tingling. Denies: Swelling, Redness, Bruising, Fever, Weakness, Abdominal pain, Flank pain, Bladder incontinence, Bowel incontinence, Weight loss, Pain with weight bearing Related History: Reports: Similar episode, Previous back injury TAD Risk Factors: Reports: None Review of Systems - Review Of Systems Constitutional: Reports: No symptoms Eyes: Reports: No symptoms Ears, Nose, Mouth, Throat: Reports: No symptoms Respiratory: Reports: No symptoms Cardiac: Reports: No symptoms GI: Reports: No symptoms : Reports: Burning, Dysuria, Frequency. Denies: Discharge, Flank pain, Hematuria, Incontinence, Pain, Urgency Musculoskeletal: Reports: Back pain, Muscle pain. Denies: Gout, Joint swelling , Muscle stiffness, Neck pain Skin: Reports: No symptoms Neurological: Reports: No symptoms Endocrine: Reports: No symptoms Hematologic/Lymphatic: Reports: No symptoms All Other Systems: Reviewed and Negative Past Medical History - Past Medical History Previously Healthy: No Endocrine: Reports: None Cardiovascular: Reports: Hypertension Respiratory: Reports: Asthma Hematological: Reports: None Gastrointestinal: Reports: GERD Genitourinary: Reports: None Neuro/Psych: Reports: Migraine, Anxiety, Depression, Bipolar Disorder Musculoskeletal: Reports: None, Back Pain Cancer: Reports: None Other Pertinent Past Medical History: Dental Caries, Hypoglycemia, C-diff. - Surgical History General Surgical History: Reports: Other (dental extractions one week ago . PE TUBES , Recent fecal matter transplant ) - Family History Family History: Reports: Unknown - Social History Smoking Status: Current every day smoker Hx Substance Use: No Alcohol Screening: None - Immunizations Influenza Vaccine within 12 Months: No Pneumococcal Vaccine up to Date: No Physical Exam - Physical Exam Appearance: Thin Ill-appearing: Moderate Pain Distress: Moderate Eyes: PRATIMA, EOMI, Conjunctiva clear ENT: Ears normal, Nose normal, Oropharynx normal Respiratory: Airway patent, Breath sounds clear, Breath sounds equal, Respirations nonlabored Cardiovascular: RRR, Pulses normal, No rub, No murmur GI/: Soft, Bowel sounds normal, No Organomegaly, Tender Re-Evaluation - Re-Evaluation Time of Re-Evaluation: 10:00 Status: Improved Appearance: NAD Critical Care Note - Critical Care Note Total Time (mins): 0 Course - Course Orders, Labs, Meds: Lab Review 09/04/17 08:55 Urine Color Yellow Urine Clarity Clear Urine pH 7.0 Ur Specific [place] 1.010 Urine Protein Negative Urine Glucose (UA) Negative Urine Ketones Negative Urine Blood Negative Urine Nitrite Negative Urine Bilirubin Negative Urine Urobilinogen 0.2 Ur Leukocyte Esterase Negative Orders Category Date Time Status UA [URINALYSIS C & S IF INDICATED] Stat LAB 09/04/17 08:55 Completed Hydromorphone HCl [Dilaudid 1 mg/ml Syringe] MEDS 09/04/17 09:06 Discontinued 1 mg IM ONCE STA Promethazine HCl [Phenergan 25 mg/ml Vial] MEDS 09/04/17 09:06 Discontinued 25 mg IM ONCE STA Medications Discontinued Medications Generic Name Dose Route Start Last Admin Trade Name Freq PRN Reason Stop Dose Admin Hydromorphone HCl 1 mg 09/04/17 09:06 09/04/17 09:18 Dilaudid 1 Mg/Ml Syringe IM 09/04/17 09:07 1 mg ONCE STA Administration Promethazine HCl 25 mg 09/04/17 09:06 09/04/17 09:16 Phenergan 25 Mg/Ml Vial IM 09/04/17 09:07 25 mg ONCE STA Administration Vital Signs: Temp Pulse Resp BP Pulse Ox 09/04/17 08:05 97.7 F 118 H 16 116/76 98 Departure - Departure Time of Disposition: 10:04 Disposition: HOME SELF-CARE Discharge Problem: Chronic low back pain Qualifiers: Sciatica laterality: sciatica of right side Instructions: Chronic Back Pain (ED) Condition: Good Pt referred to PMD for follow-up: Yes Allergies/Adverse Reactions: Allergies dicyclomine [From Bentyl] Adverse Reaction (Unknown, Verified 09/04/17 08:04) amoxicillin [Amoxicillin] Adverse Reaction (Verified 09/04/17 08:04) Swelling clindamycin Adverse Reaction (Verified 09/04/17 08:04) Unknown states it is causing a bad bacteria to grow in his stomach per Dr. Luna at [facility] dexamethasone [From Decadron] Adverse Reaction (Verified 09/04/17 08:04) ketorolac [From Toradol] Adverse Reaction (Verified 09/04/17 08:04) paroxetine HCl [From Paxil] Adverse Reaction (Verified 09/04/17 08:04) Penicillins Adverse Reaction (Verified 09/04/17 08:04) Swelling rofecoxib [From Vioxx] Adverse Reaction (Verified 09/04/17 08:04) Sulfa (Sulfonamide Antibiotics) Adverse Reaction (Verified 09/04/17 08:04) Rash sulfamethoxazole [From Bactrim] Adverse Reaction (Verified 09/04/17 08:04) Swelling sumatriptan [From Imitrex] Adverse Reaction (Verified 09/04/17 08:04) Rash tramadol Adverse Reaction (Verified 09/04/17 08:04) trimethoprim [From Bactrim] Adverse Reaction (Verified 09/04/17 08:04) Swelling swelling in throat Home Medications: Ambulatory Orders Ranitidine HCl [Zantac] 150 mg PO TID 07/13/17 Hydrocodone Bit/Acetaminophen [[place] 5-325] 1 each PO Q4HR 09/04/17 Tizanidine HCl [Zanaflex] 4 mg PO Q6HR PRN 09/04/17 Disposition Discussed With: Patient (Continue home meds and follow up with PCP and pain management)
[2017-09-04] MEDS ORDERED: PHENERGAN 25 MG/ML VIAL IM STA (09:06)
[2017-09-04] MEDS ORDERED: DILAUDID 1 MG/ML SYRINGE IM STA (09:06)
== END 2017-09-04 10:30 | disposition home or self-care (01) ==
LOC: ED 07:57
DX: M54.41 Lumbago with sciatica, right side (principal); F17.210 Nicotine dependence, cigarettes, uncomplicated
CPT/HCPCS: 81001; 96372; 99283

== ENCOUNTER 2017-09-20 17:21 | Emergency (ER) ==
[2017-09-20 17:25] VITALS: BP 152/83; TEMP 98.9; BMI 22.8
--- NOTE | 2017-09-20 17:40 | ED.PDOC ---
General ED Provider: Dr. DOUG GUADARRAMA Chief Complaint: Abdominal Pain Stated Complaint: Patient is a 27 year old male who come to the ER with complains of RUQ abdominal pain. He states that he is no longer taking at home pain medication from pain management Time Seen by Physician: 17:40 Mode of Arrival: Walk-In Information Source: Patient Exam Limitations: No limitations Primary Care Provider: DELLA REYNOLDS Nursing and Triage Documentation Reviewed and Agree: Yes Reviewed sepsis parameters & appropriate labs ordered?: Yes System Inflammatory Response Syndrome: Not Applicable Sepsis Protocol: For patient's 13 years and over: Temp is 96.8 and below OR 101 and greater Pulse >90 BPM Resp >20/minute Acutely Altered Mental Status Are patient's symptoms suggestive of a new infection, such as: -Pneumonia -Skin, Soft Tissue -Endocarditis -UTI -Bone, Joint Infection -Implantable Device -Acute Abdominal Infection -Wound Infection -Meningitis -Blood Stream Catheter Infection -Unknown System Inflammatory Response Syndrome: Not Applicable GI Complaint Exam - Abdominal Pain Complaint/Exam Onset: Gradual Duration: chronic Symptoms Are: Still present Timing: Constant Initial Severity: Moderate Current Severity: Moderate Location of Pain: RUQ Radiates To: Denies: Chest, Back, Flank, LLQ, RLQ, Inguinal Character: Reports: Aching, Throbbing Aggravating: Reports: None Alleviating: Reports: None Associated Signs and Symptoms: Denies: Diaphoresis, Fever, Cough, Chest pain, Dizziness, Back pain, Constipation, Blood in stool, Dysuria, Urinary frequency, Decreased urine output, Decreased appetite, Discharge, Nausea, Vomiting, Diarrhea, Decreased activity Related History: Reports: Similar episode AAA Risk Factors: Reports: None Cardiac Risk Factors: Reports: None Testicular Torsion Risk Factors: Reports: None Surgical Obstruction Risk Factors: Reports: None Related Surgical History: Reports: None Abdominal Findings: Absent: Rebound tenderness, McBurney's Point tender, CVA Tenderness Differential Diagnoses: Appendicitis, Diverticulitis, Gastroenteritis, GB, PUD, UTI Review of Systems - Review Of Systems Constitutional: Reports: No symptoms Eyes: Reports: No symptoms Ears, Nose, Mouth, Throat: Reports: No symptoms Respiratory: Reports: No symptoms Cardiac: Reports: No symptoms GI: Reports: Abdominal pain : Reports: No symptoms Musculoskeletal: Reports: No symptoms Skin: Reports: No symptoms Neurological: Reports: No symptoms Endocrine: Reports: No symptoms Hematologic/Lymphatic: Reports: No symptoms All Other Systems: Reviewed and Negative Past Medical History - Past Medical History Previously Healthy: No Endocrine: Reports: None Cardiovascular: Reports: Hypertension Respiratory: Reports: Asthma Hematological: Reports: None Gastrointestinal: Reports: GERD Genitourinary: Reports: None Neuro/Psych: Reports: Migraine, Anxiety, Depression, Bipolar Disorder Musculoskeletal: Reports: None, Back Pain Cancer: Reports: None Other Pertinent Past Medical History: Dental Caries, Hypoglycemia, C-diff. - Surgical History General Surgical History: Reports: Other (dental extractions one week ago . PE TUBES , Recent fecal matter transplant ) - Family History Family History: Reports: Unknown - Social History Smoking Status: Current every day smoker Hx Substance Use: No Alcohol Screening: None - Immunizations Tetanus Shot up to Date: No Influenza Vaccine within 12 Months: No Pneumococcal Vaccine up to Date: No Physical Exam - Physical Exam Appearance: Well-appearing Pain Distress: Mild Eyes: PRATIMA, EOMI, Conjunctiva clear Neck: Supple Respiratory: Airway patent, Breath sounds clear, Breath sounds equal, Respirations nonlabored Cardiovascular: RRR, Pulses normal, No rub, No murmur GI/: Soft, Bowel sounds normal, Tender Musculoskeletal: Normal strength, ROM intact, No edema, No calf tenderness Skin: Warm Neurological: Sensation intact, Alert, Oriented Psychiatric: Anxious Critical Care Note - Critical Care Note Total Time (mins): 0 Course - Course Orders, Labs, Meds: Orders Category Date Time Status Promethazine HCl [Phenergan 25 mg/ml Vial] MEDS 09/20/17 17:57 Discontinued 25 mg IM ONCE STA Medications Discontinued Medications Generic Name Dose Route Start Last Admin Trade Name Freq PRN Reason Stop Dose Admin Promethazine HCl 25 mg 09/20/17 17:57 Phenergan 25 Mg/Ml Vial IM 09/20/17 17:58 ONCE STA Vital Signs: Temp Pulse Resp BP Pulse Ox 09/20/17 17:23 98.9 F 70 20 152/83 H 98 Departure - Departure Time of Disposition: 18:09 Disposition: AMA Discharge Problem: Abdominal pain Condition: Stable Pt referred to PMD for follow-up: No IPMP verified?: Yes (last narcotic Rx was in Nov, previouly multiple Narcotics from pain managem) Allergies/Adverse Reactions: Allergies dicyclomine [From Bentyl] Adverse Reaction (Unknown, Verified 09/20/17 17:22) amoxicillin [Amoxicillin] Adverse Reaction (Verified 09/20/17 17:) Swelling clindamycin Adverse Reaction (Verified 09/20/17 17:) Unknown states it is causing a bad bacteria to grow in his stomach per Dr. Luna at [facility] dexamethasone [From Decadron] Adverse Reaction (Verified 09/20/17 17:) ketorolac [From Toradol] Adverse Reaction (Verified 09/20/17 17:) paroxetine HCl [From Paxil] Adverse Reaction (Verified 09/20/17:) Penicillins Adverse Reaction (Verified 09/20/17:) Swelling rofecoxib [From Vioxx] Adverse Reaction (Verified 09/20/17:) Sulfa (Sulfonamide Antibiotics) Adverse Reaction (Verified 09/20/17) Rash sulfamethoxazole [From Bactrim] Adverse Reaction (Verified 09/20/17 17:) Swelling sumatriptan [From Imitrex] Adverse Reaction (Verified 09/20/17:) Rash tramadol Adverse Reaction (Verified 09/20/17:) trimethoprim [From Bactrim] Adverse Reaction (Verified 09/20/17 17:) Swelling swelling in throat Home Medications: Ambulatory Orders Ranitidine HCl [Zantac] 150 mg PO TID 07/13/17
[2017-09-20] MEDS ORDERED: PHENERGAN 25 MG/ML VIAL IM STA (17:57)
== END 2017-09-20 18:00 | disposition left against medical advice (07) ==
LOC: ED 17:21
DX: R10.11 Right upper quadrant pain (principal); Z72.0 Tobacco use
CPT/HCPCS: 99283

== ENCOUNTER 2017-09-28 23:19 | Emergency (ER) ==
[2017-09-28 23:26] VITALS: BP 121/69; TEMP 98.4; BMI 19.7
[2017-09-28] MEDS ORDERED: NORCO 10-325 PO STA (23:34)
--- NOTE | 2017-09-28 23:35 | ED.PDOC ---
General ED Provider: Dr. MELO NATION-ER Chief Complaint: Back Pain Stated Complaint: my back is hurting--analisa missed my appts for pain management Time Seen by Physician: 23:35 Mode of Arrival: Walk-In Information Source: Patient Exam Limitations: No limitations Primary Care Provider: DELLA REYNOLDS Nursing and Triage Documentation Reviewed and Agree: Yes Reviewed sepsis parameters & appropriate labs ordered?: Yes System Inflammatory Response Syndrome: Not Applicable Sepsis Protocol: For patient's 13 years and over: Temp is 96.8 and below OR 101 and greater Pulse >90 BPM Resp >20/minute Acutely Altered Mental Status Are patient's symptoms suggestive of a new infection, such as: -Pneumonia -Skin, Soft Tissue -Endocarditis -UTI -Bone, Joint Infection -Implantable Device -Acute Abdominal Infection -Wound Infection -Meningitis -Blood Stream Catheter Infection -Unknown Musculoskeletal Complaint Exam - Back Pain Complaint/Exam Mechanism of Injury: Reports: No known trauma Onset/Duration: mos Symptoms Are: Still present Timing: Constant Initial Severity: Mild Current Severity: Moderate Location: Reports: Discrete Character: Reports: Dull, Aching, Spasmodic, Stiffness Aggravating: Reports: Movements, Lifting, Bending, Walking Alleviating: Reports: None Associated Signs and Symptoms: Denies: Swelling, Redness, Bruising, Fever, Weakness, Numbness, Tingling, Abdominal pain, Flank pain, Bladder incontinence, Bowel incontinence, Weight loss, Pain with weight bearing TAD Risk Factors: Reports: None AAA Risk Factors: Reports: None Cauda Equina Risk Factors: Reports: None Epidural Abcess Risk Factors: Reports: None Related Surgical History: Reports: None Focal Tenderness: Yes Paraspinal Muscle Tenderness: No Paraspinal Muscle Spasm: No Scoliosis: No Lordosis: No Kyphosis: No SLR Test: Right Negative, Left Negative Hip Motion Testing Pain: Right Negative, Left Negative Focal Weakness: Present: None Focal Sensory Loss: Present: None Gait: Present: Normal Differential Diagnoses: Herniated Disk, Other Review of Systems - Review Of Systems Constitutional: Reports: No symptoms Eyes: Reports: No symptoms Ears, Nose, Mouth, Throat: Reports: No symptoms Respiratory: Reports: No symptoms Cardiac: Reports: No symptoms GI: Reports: No symptoms : Reports: No symptoms Musculoskeletal: Reports: Back pain Skin: Reports: No symptoms Neurological: Reports: No symptoms Endocrine: Reports: No symptoms Hematologic/Lymphatic: Reports: No symptoms All Other Systems: Reviewed and Negative Past Medical History - Past Medical History Previously Healthy: No Endocrine: Reports: None Cardiovascular: Reports: Hypertension Respiratory: Reports: Asthma Hematological: Reports: None Gastrointestinal: Reports: GERD Genitourinary: Reports: None Neuro/Psych: Reports: Migraine, Anxiety, Depression, Bipolar Disorder Musculoskeletal: Reports: None, Back Pain Cancer: Reports: None Other Pertinent Past Medical History: Dental Caries, Hypoglycemia, C-diff. - Surgical History General Surgical History: Reports: Other (dental extractions one week ago . PE TUBES , Recent fecal matter transplant ) - Family History Family History: Reports: Unknown - Social History Smoking Status: Current every day smoker Hx Substance Use: No Alcohol Screening: None Lives: With family - Immunizations Tetanus Shot up to Date: Yes Influenza Vaccine within 12 Months: No Pneumococcal Vaccine up to Date: No Physical Exam - Physical Exam Appearance: Well-appearing, No pain distress, Well-nourished Eyes: PRATIMA, EOMI, Conjunctiva clear ENT: Ears normal, Nose normal, Oropharynx normal Neck: Supple Respiratory: Airway patent, Breath sounds clear, Breath sounds equal, Respirations nonlabored Cardiovascular: RRR, Pulses normal, No rub, No murmur GI/: Soft, Nontender, No masses, Bowel sounds normal, No Organomegaly Musculoskeletal: Limited ROM Skin: Warm, Dry, Normal color Neurological: Sensation intact, Motor intact, Reflexes intact, Cranial nerves intact, Alert, Oriented Psychiatric: Affect appropriate, Mood appropriate Critical Care Note - Critical Care Note Total Time (mins): 0 Course - Course Orders, Labs, Meds: Orders Category Date Time Status Hydrocodone Bit/Acetaminophen [Burt 10-325] MEDS 09/28/17 23:34 Discontinued 1 tab PO ONCE STA Medications Discontinued Medications Generic Name Dose Route Start Last Admin Trade Name Freq PRN Reason Stop Dose Admin Acetaminophen/Hydrocodone Bitart 1 tab 09/28/17 23:34 Burt 10-325 PO 09/28/17 23:35 ONCE STA Vital Signs: Temp Pulse Resp BP Pulse Ox 09/28/17 23:20 98.4 F 89 20 121/69 98 Departure - Departure Time of Disposition: 23:37 Disposition: HOME SELF-CARE Discharge Problem: Chronic low back pain Qualifiers: Back pain laterality: unspecified Sciatica presence: without sciatica Qualified Code(s): M54.5 - Low back pain; G89.29 - Other chronic pain; G89.29 - Other chronic pain Instructions: Chronic Back Pain (ED) Condition: Good Pt referred to PMD for follow-up: No IPMP verified?: No Additional Instructions: f/u with pcp Allergies/Adverse Reactions: Allergies dicyclomine [From Bentyl] Adverse Reaction (Unknown, Verified 09/28/17 23:26) amoxicillin [Amoxicillin] Adverse Reaction (Verified 09/28/17 23:26) Swelling clindamycin Adverse Reaction (Verified 09/28/17 23:26) Unknown states it is causing a bad bacteria to grow in his stomach per Dr. Jeremy trent [facility] dexamethasone [From Decadron] Adverse Reaction (Verified 09/28/17 23:26) ketorolac [From Toradol] Adverse Reaction (Verified 09/28/17 23:26) paroxetine HCl [From Paxil] Adverse Reaction (Verified 09/28/17 23:26) Penicillins Adverse Reaction (Verified 09/28/17 23:26) Swelling rofecoxib [From Vioxx] Adverse Reaction (Verified 09/28/17 23:26) Sulfa (Sulfonamide Antibiotics) Adverse Reaction (Verified 09/28/17 23:26) Rash sulfamethoxazole [From Bactrim] Adverse Reaction (Verified 09/28/17 23:26) Swelling sumatriptan [From Imitrex] Adverse Reaction (Verified 09/28/17 23:26) Rash tramadol Adverse Reaction (Verified 09/28/17 23:26) trimethoprim [From Bactrim] Adverse Reaction (Verified 09/28/17 23:26) Swelling swelling in throat Home Medications: Ambulatory Orders Ranitidine HCl [Zantac] 150 mg PO TID 07/13/17 Disposition Discussed With: Patient, Family
== END 2017-09-28 23:51 | disposition home or self-care (01) ==
LOC: ED 23:19
DX: M54.5 Low back pain (principal); G89.29 Other chronic pain; F17.210 Nicotine dependence, cigarettes, uncomplicated
CPT/HCPCS: 99282

== ENCOUNTER 2017-10-10 22:22 | Emergency (ER) ==
[2017-10-10 22:34] VITALS: BP 144/75; TEMP 98.1; BMI 21.9
--- NOTE | 2017-10-10 23:09 | ED.PDOC ---
General ED Provider: Dr. CHASE MICHELLE Chief Complaint: Back Pain Stated Complaint: Hurting more in the back, whole back is hurting from neck down to lower back. No injury Time Seen by Physician: 23:07 Mode of Arrival: Walk-In Information Source: Patient Primary Care Provider: DELLA REYNOLDS Nursing and Triage Documentation Reviewed and Agree: Yes Reviewed sepsis parameters & appropriate labs ordered?: No System Inflammatory Response Syndrome: Not Applicable Sepsis Protocol: For patient's 13 years and over: Temp is 96.8 and below OR 101 and greater Pulse >90 BPM Resp >20/minute Acutely Altered Mental Status Are patient's symptoms suggestive of a new infection, such as: -Pneumonia -Skin, Soft Tissue -Endocarditis -UTI -Bone, Joint Infection -Implantable Device -Acute Abdominal Infection -Wound Infection -Meningitis -Blood Stream Catheter Infection -Unknown Musculoskeletal Complaint Exam - Back Pain Complaint/Exam Mechanism of Injury: Reports: No known trauma Symptoms Are: Still present Timing: Constant Episodes Lasting: Hours Initial Severity: Moderate Current Severity: Moderate Location: Reports: Discrete Character: Reports: Aching, Throbbing Aggravating: Reports: Movements, Lifting, Bending, Walking Alleviating: Reports: None Associated Signs and Symptoms: Denies: Swelling, Redness, Bruising, Fever, Weakness, Numbness, Tingling, Abdominal pain, Flank pain, Bladder incontinence, Bowel incontinence, Weight loss, Pain with weight bearing TAD Risk Factors: Reports: None AAA Risk Factors: Reports: None Cauda Equina Risk Factors: Reports: None Epidural Abcess Risk Factors: Reports: None Related Surgical History: Reports: None Focal Tenderness: Yes Paraspinal Muscle Tenderness: Yes Paraspinal Muscle Spasm: Yes Scoliosis: Yes Lordosis: No Kyphosis: No SLR Test: Right Negative, Left Negative Hip Motion Testing Pain: Right Negative, Left Negative Focal Weakness: Present: None Focal Sensory Loss: Present: None Gait: Present: Normal Differential Diagnoses: Herniated Disk, Strain Review of Systems - Review Of Systems Constitutional: Reports: No symptoms Eyes: Reports: No symptoms Ears, Nose, Mouth, Throat: Reports: No symptoms Respiratory: Reports: No symptoms Cardiac: Reports: No symptoms GI: Reports: No symptoms : Reports: No symptoms Musculoskeletal: Reports: Back pain, Joint pain Skin: Reports: No symptoms Neurological: Reports: No symptoms Endocrine: Reports: No symptoms Hematologic/Lymphatic: Reports: No symptoms All Other Systems: Reviewed and Negative Past Medical History - Past Medical History Previously Healthy: No Endocrine: Reports: None Cardiovascular: Reports: Hypertension Respiratory: Reports: Asthma Hematological: Reports: None Gastrointestinal: Reports: GERD Genitourinary: Reports: None Neuro/Psych: Reports: Migraine, Anxiety, Depression, Bipolar Disorder Musculoskeletal: Reports: None, Back Pain Cancer: Reports: None Other Pertinent Past Medical History: Dental Caries, Hypoglycemia, C-diff. - Surgical History General Surgical History: Reports: Other (dental extractions one week ago . PE TUBES , Recent fecal matter transplant ) - Family History Family History: Reports: Unknown - Social History Smoking Status: Current every day smoker, Light tobacco smoker Smoking Cessation Counseling Time: > 3 min - 10 min Hx Substance Use: No Alcohol Screening: None - Immunizations Tetanus Shot up to Date: Yes Influenza Vaccine within 12 Months: No Pneumococcal Vaccine up to Date: No Physical Exam - Physical Exam Appearance: Well-appearing, No pain distress, Well-nourished Eyes: PRATIMA, EOMI, Conjunctiva clear ENT: Ears normal, Nose normal, Oropharynx normal Respiratory: Airway patent, Breath sounds clear, Breath sounds equal, Respirations nonlabored Cardiovascular: RRR, Pulses normal, No rub, No murmur GI/: Soft, Nontender, No masses, Bowel sounds normal, No Organomegaly Musculoskeletal: Normal strength, ROM intact, No edema, No calf tenderness Skin: Warm, Dry, Normal color Neurological: Sensation intact, Motor intact, Reflexes intact, Cranial nerves intact, Alert, Oriented Psychiatric: Affect appropriate, Mood appropriate Interpretation - Radiology Interpretation Radiology Interpretation By: Radiologist Radiology Results: Negative Critical Care Note - Critical Care Note Total Time (mins): 15 Course - Course Orders, Labs, Meds: Orders Category Date Time Status CERVICAL SPINE, 2 OR 3 VIEWS Stat RADS 10/10/17 23:06 Completed THORACOLUMBAR SPINE, 2 VIEWS Stat RADS 10/10/17 23:06 Completed Vital Signs: Temp Pulse Resp BP Pulse Ox 10/10/17 22:23 98.1 F 63 18 144/75 H 98 Departure - Departure Time of Disposition: 23:50 Disposition: HOME SELF-CARE Discharge Problem: Backache Instructions: Chronic Back Pain (ED) Condition: Stable Pt referred to PMD for follow-up: Yes IPMP verified?: No Additional Instructions: keep taking the Pain medications f/u with PMD Allergies/Adverse Reactions: Allergies dicyclomine [From Bentyl] Adverse Reaction (Unknown, Verified 09/28/17 23:26) amoxicillin [Amoxicillin] Adverse Reaction (Verified 10/10/17 22:35) Swelling clindamycin Adverse Reaction (Verified 10/10/17 22:35) Unknown states it is causing a bad bacteria to grow in his stomach per Dr. Luna at [facility] dexamethasone [From Decadron] Adverse Reaction (Verified 10/10/17 22:35) ketorolac [From Toradol] Adverse Reaction (Verified 10/10/17 22:35) paroxetine HCl [From Paxil] Adverse Reaction (Verified 10/10/17 22:35) Penicillins Adverse Reaction (Verified 10/10/17 22:35) Swelling rofecoxib [From Vioxx] Adverse Reaction (Verified 10/10/17 22:35) Sulfa (Sulfonamide Antibiotics) Adverse Reaction (Verified 10/10/17 22:35) Rash sulfamethoxazole [From Bactrim] Adverse Reaction (Verified 10/10/17 22:35) Swelling sumatriptan [From Imitrex] Adverse Reaction (Verified 10/10/17 22:35) Rash tramadol Adverse Reaction (Verified 10/10/17 22:35) trimethoprim [From Bactrim] Adverse Reaction (Verified 10/10/17 22:35) Swelling swelling in throat Home Medications: Ambulatory Orders Ranitidine HCl [Zantac] 150 mg PO TID 07/13/17 Gabapentin 600 mg PO TID 10/10/17 Hydrocodone/Acetaminophen [Grant 5-325 Tablet] 1 each PO TID PRN 10/10/17 Disposition Discussed With: Patient, Family
--- NOTE | 2017-10-10 23:32 | DI ---
Exam: Cervical spine neck pain HISTORY: Neck injury and pain FINDINGS: Cervical spine demonstrates normal alignment. Vertebral body height is maintained. Disc space height is maintained. No degenerative endplate change or facet arthropathy. Prevertebral soft tissue is normal. No fracture lines are seen. Impression: Negative exam
--- NOTE | 2017-10-10 23:32 | DI ---
Exam: Thoracolumbar spine two-view History: Back pain FINDINGS: Thoracic and lumbar spine shows normal alignment. Vertebral body height is maintained. N o fracture lines are seen. No suspicious bony lesions or vertebral anomalies. No scoliosis. Impression: Normal thoracolumbar spine
== END 2017-10-10 23:59 | disposition home or self-care (01) ==
LOC: ED 22:22
DX: M54.2 Cervicalgia (principal); M54.5 Low back pain; M54.6 Pain in thoracic spine; F17.210 Nicotine dependence, cigarettes, uncomplicated
CPT/HCPCS: 99282

== ENCOUNTER 2017-10-18 14:30 | Emergency (ER) ==
[2017-10-18 14:35] VITALS: BP 144/79; TEMP 97.4; BMI 23.3
--- NOTE | 2017-10-18 17:18 | ED.PDOC ---
General ED Provider: Dr. MELO LEMUS Chief Complaint: Nausea/Vomiting Stated Complaint: "I ve been sick" C/O having severe nausea and episoded of vomiting. C/O generalized aching and has worsening of chronc abdominal cramping.States unable to keep liquids down. Denies diarrhea. No obvious distress noted to observation of patient during exam. Time Seen by Physician: 16:45 Mode of Arrival: Walk-In Information Source: Patient Exam Limitations: No limitations Primary Care Provider: DELLA REYNOLDS Nursing and Triage Documentation Reviewed and Agree: Yes Reviewed sepsis parameters & appropriate labs ordered?: Yes System Inflammatory Response Syndrome: Not Applicable Sepsis Protocol: For patient's 13 years and over: Temp is 96.8 and below OR 101 and greater Pulse >90 BPM Resp >20/minute Acutely Altered Mental Status Are patient's symptoms suggestive of a new infection, such as: -Pneumonia -Skin, Soft Tissue -Endocarditis -UTI -Bone, Joint Infection -Implantable Device -Acute Abdominal Infection -Wound Infection -Meningitis -Blood Stream Catheter Infection -Unknown System Inflammatory Response Syndrome: Not Applicable GI Complaint Exam - Vomiting/Diarrhea Complaint/Exam Onset/Duration: 2-3 days Symptoms Are: Still present Episodes of Vomiting over last 24 Hours: 5 Episodes of Diarrhea Over Last 24 Hours: 0 Initial Severity: Moderate Current Severity: Mild Character of Vomiting: Reports: Bilious Character of Diarrhea: Denies: Bloody, Watery, Mucoid, Malodorous Aggravating: Reports: Liquids Alleviating: Reports: None Associated Signs and Symptoms: Reports: Light-headedness, Abdominal pain, Cramping Related History: Reports: Similar episode Last Oral Intake: earlier today Non-GI Risk Factors: Reports: None Surgical Obstruction Risk Factors: Reports: None Related Surgical History: Reports: None Abdominal Findings: Present: None Rectal Exam: Present: Normal Findings (deferred) Kussmaul Respirations Present: No Differential Diagnoses: Dehydration, Viral Gastroenteritis Review of Systems - Review Of Systems Constitutional: Reports: Malaise, Loss of appetite Eyes: Reports: No symptoms Ears, Nose, Mouth, Throat: Reports: No symptoms Respiratory: Reports: No symptoms Cardiac: Reports: No symptoms GI: Reports: Nausea, Vomiting, Other (cramping) : Reports: No symptoms Musculoskeletal: Reports: No symptoms Skin: Reports: No symptoms Neurological: Reports: No symptoms Endocrine: Reports: No symptoms Hematologic/Lymphatic: Reports: No symptoms All Other Systems: Reviewed and Negative Past Medical History - Past Medical History Previously Healthy: No Endocrine: Reports: None Cardiovascular: Reports: Hypertension Respiratory: Reports: Asthma Hematological: Reports: None Gastrointestinal: Reports: GERD, Other (Poss IBD) Genitourinary: Reports: None Neuro/Psych: Reports: Migraine, Anxiety, Depression, Bipolar Disorder Musculoskeletal: Reports: None, Back Pain Cancer: Reports: None Other Pertinent Past Medical History: Dental Caries, Hypoglycemia, C-diff. - Surgical History General Surgical History: Reports: Other (dental extractions one week ago . PE TUBES , Recent fecal matter transplant ) - Family History Family History: Reports: Unknown - Social History Smoking Status: Current every day smoker, Light tobacco smoker Hx Substance Use: No Alcohol Screening: None - Immunizations Influenza Vaccine within 12 Months: No Pneumococcal Vaccine up to Date: No Physical Exam - Physical Exam Appearance: Ill-appearing Ill-appearing: Mild Pain Distress: Mild Eyes: PRATIMA, EOMI, Conjunctiva clear ENT: Ears normal, Nose normal, Oropharynx normal Neck: Supple Respiratory: Airway patent, Breath sounds clear, Breath sounds equal Cardiovascular: RRR, Pulses normal, No rub, No murmur GI/: Soft, No masses, Bowel sounds normal, Tender (No guarding or rebound) Musculoskeletal: Normal strength Skin: Warm Neurological: Sensation intact, Alert, Oriented Psychiatric: Anxious Critical Care Note - Critical Care Note Total Time (mins): 0 Course - Course Vital Signs: Temp Pulse Resp BP Pulse Ox 10/18/17 14:30 97.4 F L 91 H 20 144/79 H 99 Departure - Departure Time of Disposition: 18:00 Disposition: AMA Discharge Problem: Nausea Condition: Fair Pt referred to PMD for follow-up: No IPMP verified?: Yes Additional Instructions: after examining patient explained to him need for diagnostic evaluation to determine etiology of his symptoms. Stated aren't you going to give me somthing for my pain.advised need to start IV to administer fluids due his repeated emesis and anti emetic. While putting in orders his came back to room and additional verbal discussion occurring after which she came to desk asking " are you going to give him his pain meds"?? Advised her of treatment plan when she appeared angry-went back into room ; additional verbal confrontation occurred after which both left department without further statement. Allergies/Adverse Reactions: Allergies dicyclomine [From Bentyl] Adverse Reaction (Unknown, Verified 10/18/17 14:36) amoxicillin [Amoxicillin] Adverse Reaction (Verified 10/18/17 14:36) Swelling clindamycin Adverse Reaction (Verified 10/18/17 14:36) Unknown states it is causing a bad bacteria to grow in his stomach per Dr. Luna at [facility] dexamethasone [From Decadron] Adverse Reaction (Verified 10/18/17 14:36) ketorolac [From Toradol] Adverse Reaction (Verified 10/18/17 14:36) paroxetine HCl [From Paxil] Adverse Reaction (Verified 10/18/17 14:36) Penicillins Adverse Reaction (Verified 10/18/17 14:36) Swelling rofecoxib [From Vioxx] Adverse Reaction (Verified 10/18/17 14:36) Sulfa (Sulfonamide Antibiotics) Adverse Reaction (Verified 10/18/17 14:36) Rash sulfamethoxazole [From Bactrim] Adverse Reaction (Verified 10/18/17 14:36) Swelling sumatriptan [From Imitrex] Adverse Reaction (Verified 10/18/17 14:36) Rash tramadol Adverse Reaction (Verified 10/18/17 14:36) trimethoprim [From Bactrim] Adverse Reaction (Verified 10/18/17 14:36) Swelling swelling in throat Home Medications: Ambulatory Orders Ranitidine HCl [Zantac] 150 mg PO TID 07/13/17 Buprenorphine HCl/Naloxone HCl [Suboxone 8 mg-2 mg Sl Film] 1 each SL BID Disposition Discussed With: Patient
== END 2017-10-18 17:18 | disposition left against medical advice (07) ==
LOC: ED 14:30
DX: R11.2 Nausea with vomiting, unspecified (principal); R10.9 Unspecified abdominal pain; R42 Dizziness and giddiness; F17.210 Nicotine dependence, cigarettes, uncomplicated
CPT/HCPCS: 99284

== ENCOUNTER 2017-11-16 21:14 | Emergency (ER) ==
[2017-11-16 21:23] VITALS: BP 129/73; TEMP 99.1; BMI 22.8
--- NOTE | 2017-11-16 22:02 | CT ---
EXAM: CT of the chest without contrast. HISTORY: Left chest wall pain. PROCEDURE: Contiguous axial CT images of the chest without contrast with coronal and sagittal reform ats. FINDINGS: The heart is within normal limits in size. The thoracic aorta is within normal limits in d iameter. The mediastinum is normal in appearance. There is calcified granuloma in the right upper lo be. No infiltrate or consolidation. No pneumothorax. The bones are unremarkable. The adrenal gland s and liver are normal in appearance. Impression: Negative CT of the chest.
--- NOTE | 2017-11-16 22:14 | ED.PDOC ---
General ED Provider: Dr. MELO NATION-ER Chief Complaint: Chest Pain Stated Complaint: the left side of my chest hurts to move or take a deep breath Time Seen by Physician: 21:20 Mode of Arrival: Walk-In Information Source: Patient Exam Limitations: No limitations Primary Care Provider: DELLA REYNOLDS Nursing and Triage Documentation Reviewed and Agree: Yes Reviewed sepsis parameters & appropriate labs ordered?: Yes System Inflammatory Response Syndrome: Not Applicable Sepsis Protocol: For patient's 13 years and over: Temp is 96.8 and below OR 101 and greater Pulse >90 BPM Resp >20/minute Acutely Altered Mental Status Are patient's symptoms suggestive of a new infection, such as: -Pneumonia -Skin, Soft Tissue -Endocarditis -UTI -Bone, Joint Infection -Implantable Device -Acute Abdominal Infection -Wound Infection -Meningitis -Blood Stream Catheter Infection -Unknown Cardiovascular Complaint Exam - Chest Pain Complaint/Exam Onset: Gradual Duration: one hour Symptoms Are: Still present Timing: Constant Initial Severity: Mild Current Severity: Mild Location: Reports: Discrete, Left anterior Pain Radiates: Reports: Back Character: Reports: Sharp, Stabbing Aggravating: Reports: Movement, Deep breaths Alleviating: Reports: Spontaneous resolution Associated Signs and Symptoms: Denies: Diaphoresis, Nausea, Vomiting, Fever, Palpitations, Cough, Hemoptysis, Back pain, Abdominal pain, Dizziness, Short of air, Calf pain, Calf swelling Prior Care for this Complaint: No Recent Stress Test: No Recent Echo/LV Function: No JVD Present: No Subcutaneous Emphysema Present: No Diminshed Breath Sounds: No Reproducible Chest Wall Pain: Yes Bilateral Pulses Present: Yes Unequal Pulses Noted: No Differential Diagnoses: Chest Wall Pain Review of Systems - Review Of Systems Constitutional: Reports: No symptoms Eyes: Reports: No symptoms Ears, Nose, Mouth, Throat: Reports: No symptoms Respiratory: Reports: No symptoms Cardiac: Reports: Chest pain GI: Reports: No symptoms : Reports: No symptoms Musculoskeletal: Reports: Muscle pain Skin: Reports: No symptoms Neurological: Reports: No symptoms Endocrine: Reports: No symptoms Hematologic/Lymphatic: Reports: No symptoms All Other Systems: Reviewed and Negative Past Medical History - Past Medical History Previously Healthy: No Endocrine: Reports: None Cardiovascular: Reports: Hypertension Respiratory: Reports: Asthma Hematological: Reports: None Gastrointestinal: Reports: GERD Genitourinary: Reports: None Neuro/Psych: Reports: Migraine, Anxiety, Depression, Bipolar Disorder Musculoskeletal: Reports: None, Back Pain Cancer: Reports: None Other Pertinent Past Medical History: Dental Caries, Hypoglycemia, C-diff. - Surgical History General Surgical History: Reports: Other (dental extractions one week ago . PE TUBES , Recent fecal matter transplant ) - Family History Family History: Reports: Unknown - Social History Smoking Status: Current every day smoker, Light tobacco smoker Hx Substance Use: Yes Alcohol Screening: None - Immunizations Tetanus Shot up to Date: Yes Influenza Vaccine within 12 Months: No Pneumococcal Vaccine up to Date: No Physical Exam - Physical Exam Appearance: Well-appearing, No pain distress, Well-nourished Pain Distress: Mild Eyes: PRATIMA, EOMI, Conjunctiva clear ENT: Ears normal, Nose normal, Oropharynx normal Neck: Supple Respiratory: Airway patent, Breath sounds clear, Breath sounds equal, Respirations nonlabored Cardiovascular: RRR, Pulses normal, No rub, No murmur GI/: Soft, Nontender, No masses, Bowel sounds normal, No Organomegaly Musculoskeletal: Normal strength, ROM intact, No edema, No calf tenderness Skin: Warm, Dry, Normal color Neurological: Sensation intact, Motor intact, Reflexes intact, Cranial nerves intact, Alert, Oriented Psychiatric: Affect appropriate, Mood appropriate Interpretation - Radiology Interpretation Radiology Interpretation By: Radiologist Radiology Results: Negative Exam Interpreted: CT Scan - EKG Interpretation Time of EKG #1: 22:15 Rate: Normal Rhythm: Sinus Ectopy: None [place]: NL ST Segment: Normal Interpretation: nsr Critical Care Note - Critical Care Note Total Time (mins): 0 Course - Course Hematology/Chemistry: 11/16/17 21:30 11/16/17 21:30 Orders, Labs, Meds: Lab Review 11/16/17 11/16/17 11/16/17 21:30 21:30 21:30 WBC 11.24 H RBC 4.55 L Hgb 13.7 L Hct 39.3 L MCV 86.4 MCH 30.1 MCHC 34.9 RDW Coeff of Steven 12.4 Plt Count 239 Immature Gran % (Auto) 0.3 Neut % (Auto) 64.3 Lymph % (Auto) 26.8 [place] % (Auto) 6.9 Eos % (Auto) 1.2 Baso % (Auto) 0.5 Immature Gran # (Auto) 0.0 Neut # (Auto) 7.2 H Lymph # (Auto) 3.0 [place] # (Auto) 0.8 Eos # (Auto) 0.1 Baso # (Auto) 0.1 ESR 5 D-Dimer (Manual) 157.55 Sodium 139 Potassium 3.5 Chloride 102 Carbon Dioxide 26 Anion Gap 14.5 BUN 9 Creatinine 0.74 Estimated GFR (MDRD) 125.00 BUN/Creatinine Ratio 12.16 Glucose 83 Calcium 9.7 Total Bilirubin 0.5 AST 16 ALT 12 Alkaline Phosphatase 51 Total Creatine Kinase 134 CK-MB (CK-2) 1.2 CK-MB (CK-2) % 0.95222 Troponin I 0.0140 Total Protein 7.8 Albumin 4.4 Globulin 3.4 Albumin/Globulin Ratio 1.29 Orders Category Date Time Status EKG-(ED ONLY) Stat CARDIO 11/16/17 21:28 Completed CBC W/ AUTO DIFF Stat LAB 11/16/17 21:30 Completed COMPREHENSIVE METABOLIC PANEL Stat LAB 11/16/17 21:30 Completed CREATINE KINASE Stat LAB 11/16/17 21:30 Completed D-DIMER Stat LAB 11/16/17 21:30 Completed ESR Stat LAB 11/16/17 21:30 Completed TROPONIN I Stat LAB 11/16/17 21:[address] CHEST W/O CONTRAST Stat RADS 11/16/17 21:25 Completed Vital Signs: Temp Pulse Resp BP Pulse Ox 11/16/17 21:15 99.1 F 91 H 20 129/73 98 SHELIA Risk Score SHELIA Risk Score: Risk Score Odds of by 30D 0 0.1 (0.1-0.2) 1 0.3 (0.2-0.3) 2 0.4 (0.3-0.5) 3 0.7 (0.6-0.9) 4 1.2 (1.0-1.5) 5 2.2 (1.9-2.6) 6 3.0 (2.5-3.6) 7 4.8 (3.8-6.1) Departure - Departure Time of Disposition: 22:18 Disposition: HOME SELF-CARE Discharge Problem: Chest wall pain Instructions: Chest Wall Pain (ED) Condition: Good Pt referred to PMD for follow-up: Yes IPMP verified?: No Additional Instructions: flexeril 5mg tid prn #30--heat to chest wall--f/u with pcp Allergies/Adverse Reactions: Allergies dicyclomine [From Bentyl] Adverse Reaction (Unknown, Verified 10/18/17 14:36) amoxicillin [Amoxicillin] Adverse Reaction (Verified 10/18/17 14:36) Swelling clindamycin Adverse Reaction (Verified 10/18/17 14:36) Unknown states it is causing a bad bacteria to grow in his stomach per Dr. Luna at [facility] dexamethasone [From Decadron] Adverse Reaction (Verified 10/18/17 14:36) ketorolac [From Toradol] Adverse Reaction (Verified 10/18/17 14:36) paroxetine HCl [From Paxil] Adverse Reaction (Verified 10/18/17 14:36) Penicillins Adverse Reaction (Verified 10/18/17 14:36) Swelling rofecoxib [From Vioxx] Adverse Reaction (Verified 10/18/17 14:36) Sulfa (Sulfonamide Antibiotics) Adverse Reaction (Verified 10/18/17 14:36) Rash sulfamethoxazole [From Bactrim] Adverse Reaction (Verified 10/18/17 14:36) Swelling sumatriptan [From Imitrex] Adverse Reaction (Verified 10/18/17 14:36) Rash tramadol Adverse Reaction (Verified 10/18/17 14:36) trimethoprim [From Bactrim] Adverse Reaction (Verified 10/18/17 14:36) Swelling swelling in throat Home Medications: Ambulatory Orders Ranitidine HCl [Zantac] 150 mg PO TID 07/13/17 Buprenorphine HCl/Naloxone HCl [Suboxone 8 mg-2 mg Sl Film] 1 each SL BID Disposition Discussed With: Patient, Family
== END 2017-11-16 22:25 | disposition home or self-care (01) ==
LOC: ED 21:14
DX: R07.89 Other chest pain (principal); F17.210 Nicotine dependence, cigarettes, uncomplicated
CPT/HCPCS: 36415; 80053; 82550; 82553; 84484; 85025; 85379; 85651; 93005; 93010; 99283

== ENCOUNTER 2017-12-15 12:36 | Emergency (ER) | payer OTHER, MEDICAID ==
[2017-12-15 12:38] VITALS: BMI 23.3
[2017-12-15 12:41] VITALS: BP 148/80; TEMP 97.1
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
[2017-12-15] MEDS ORDERED: ZOFRAN 4 MG/2 ML IM STA (13:24)
[2017-12-15] MEDS ORDERED: MORPHINE 2 MG/ML SYRINGE IM STA (13:24)
== END 2017-12-15 13:50 | disposition home or self-care (01) ==
LOC: ED 12:36
DX: M54.2 Cervicalgia (principal); M54.5 Low back pain; G89.29 Other chronic pain; V89.2XXA Person injured in unspecified motor-vehicle accident, traffic, initial encounter; F17.210 Nicotine dependence, cigarettes, uncomplicated
CPT/HCPCS: 96372; 99282

== ENCOUNTER 2017-12-17 22:46 | Emergency (ER) | payer MEDICAID, OTHER ==
[2017-12-17 22:50] VITALS: BP 153/76; TEMP 97.6; BMI 23.2
[2017-12-17] MEDS ORDERED: DILAUDID 2 MG/ML SYRINGE IM STA (22:54)
[2017-12-17] MEDS ORDERED: PHENERGAN 25 MG/ML VIAL IM STA (22:54)
--- NOTE | 2017-12-17 23:32 | CT ---
Exam: CT of the abdomen and pelvis without contrast History: Flank pain Technique: [address] of the abdomen and pelvis without intravascular contrast FINDINGS: The lung bases are clear. No significant liver abnormality. The adrenals, pancreas and spl een are unremarkable. The stomach and hiatus are unremarkable.The gallbladder appears normal. Kidneys and proximal collecting system are unremarkable. The appendix is normal. Bowel loops demonstrate nor mal caliber. No inflamatory change seen in the mesentery or retroperitoneum. Vascular structures appe ar normal by noncontrast CT. Pelvic genitourinary structures appear normal. Pelvic bowel loops are unremarkable. No inflammatory c hange in the pelvic fat. No acute abnormality of the abdominal or pelvic skeleton. Impression: 1. No inflammatory process, bowel or urinary obstruction is seen. No acute findings of the abdomen or pelvis.
--- NOTE | 2017-12-17 23:57 | ED.PDOC ---
General ED Provider: Dr. MELO NATION-ER Chief Complaint: Urinary Problem Stated Complaint: it simental when i pee Time Seen by Physician: 22:50 Mode of Arrival: Walk-In Information Source: Patient Exam Limitations: No limitations Primary Care Provider: DELLA REYNOLDS Nursing and Triage Documentation Reviewed and Agree: Yes Reviewed sepsis parameters & appropriate labs ordered?: Yes System Inflammatory Response Syndrome: Not Applicable Sepsis Protocol: For patient's 13 years and over: Temp is 96.8 and below OR 101 and greater Pulse >90 BPM Resp >20/minute Acutely Altered Mental Status Are patient's symptoms suggestive of a new infection, such as: -Pneumonia -Skin, Soft Tissue -Endocarditis -UTI -Bone, Joint Infection -Implantable Device -Acute Abdominal Infection -Wound Infection -Meningitis -Blood Stream Catheter Infection -Unknown GI Complaint Exam - Abdominal Pain Complaint/Exam Onset: Gradual Duration: several hours Symptoms Are: Still present Timing: Constant Initial Severity: Mild Current Severity: Mild Location of Pain: LLQ Radiates To: Reports: Flank Character: Reports: Dull, Aching Aggravating: Reports: None Alleviating: Reports: None Associated Signs and Symptoms: Denies: Diaphoresis, Fever, Cough, Chest pain, Dizziness, Back pain, Constipation, Blood in stool, Dysuria, Urinary frequency, Decreased urine output, Decreased appetite, Discharge, Nausea, Vomiting, Diarrhea, Decreased activity Abdominal Findings: Present: None Differential Diagnoses: Ureteral Stone, UTI Review of Systems - Review Of Systems Constitutional: Reports: No symptoms Eyes: Reports: No symptoms Ears, Nose, Mouth, Throat: Reports: No symptoms Respiratory: Reports: No symptoms Cardiac: Reports: No symptoms GI: Reports: No symptoms : Reports: No symptoms Musculoskeletal: Reports: Back pain Skin: Reports: No symptoms Neurological: Reports: No symptoms Endocrine: Reports: No symptoms Hematologic/Lymphatic: Reports: No symptoms All Other Systems: Reviewed and Negative Past Medical History - Past Medical History Previously Healthy: No Endocrine: Reports: None Cardiovascular: Reports: Hypertension Respiratory: Reports: Asthma Hematological: Reports: None Gastrointestinal: Reports: GERD Genitourinary: Reports: None Neuro/Psych: Reports: Migraine, Anxiety, Depression, Bipolar Disorder Musculoskeletal: Reports: None, Back Pain Cancer: Reports: None Other Pertinent Past Medical History: Dental Caries, Hypoglycemia, C-diff. - Surgical History General Surgical History: Reports: Other (dental extractions one week ago . PE TUBES , Recent fecal matter transplant ) - Family History Family History: Reports: Unknown - Social History Smoking Status: Current every day smoker, Heavy tobacco smoker Hx Substance Use: No Alcohol Screening: Occasionally - Immunizations Tetanus Shot up to Date: Yes Influenza Vaccine within 12 Months: No Pneumococcal Vaccine up to Date: No Physical Exam - Physical Exam Appearance: Well-appearing, No pain distress, Well-nourished Eyes: PRATIMA, EOMI, Conjunctiva clear ENT: Ears normal, Nose normal, Oropharynx normal Neck: Supple Respiratory: Airway patent, Breath sounds clear, Breath sounds equal, Respirations nonlabored Cardiovascular: RRR, Pulses normal, No rub, No murmur GI/: Soft, Nontender, No masses, Bowel sounds normal, No Organomegaly Musculoskeletal: Normal strength, ROM intact, No edema, No calf tenderness Skin: Warm Neurological: Sensation intact, Motor intact, Reflexes intact, Cranial nerves intact, Alert, Oriented Psychiatric: Affect appropriate, Mood appropriate Interpretation - Radiology Interpretation Radiology Interpretation By: Radiologist Radiology Results: Negative Exam Interpreted: CT Scan Critical Care Note - Critical Care Note Total Time (mins): 0 Course - Course Hematology/Chemistry: 12/17/17 23:00 12/17/17 23:00 Orders, Labs, Meds: Lab Review 12/17/17 12/17/17 12/17/17 22:52 23:00 23:00 WBC 9.88 RBC 4.65 L Hgb 13.9 L Hct 40.1 L MCV 86.2 MCH 29.9 MCHC 34.7 RDW Coeff of Steven 12.2 Plt Count 308 Immature Gran % (Auto) 0.2 Neut % (Auto) 60.4 Lymph % (Auto) 31.2 [place] % (Auto) 5.7 Eos % (Auto) 2.0 Baso % (Auto) 0.5 Immature Gran # (Auto) 0.0 Neut # (Auto) 6.0 Lymph # (Auto) 3.1 [place] # (Auto) 0.6 Eos # (Auto) 0.2 Baso # (Auto) 0.1 Sodium 143 Potassium 4.4 Chloride 105 Carbon Dioxide 27 Anion Gap 15.4 BUN 9 Creatinine 0.76 Estimated GFR (MDRD) 121.00 BUN/Creatinine Ratio 11.84 Glucose 93 Calcium 9.9 Total Bilirubin 0.4 AST 22 ALT 34 Alkaline Phosphatase 61 Total Protein 8.0 Albumin 4.2 Globulin 3.8 Albumin/Globulin Ratio 1.11 Urine Color Yellow Urine Clarity Clear Urine pH 7.5 Ur Specific [place] 1.020 Urine Protein Negative Urine Glucose (UA) Negative Urine Ketones Negative Urine Blood Negative Urine Nitrite Negative Urine Bilirubin Negative Urine Urobilinogen 0.2 Ur Leukocyte Esterase Negative Orders Category Date Time Status CBC W/ AUTO DIFF Stat LAB 12/17/17 23:00 Completed COMPREHENSIVE METABOLIC PANEL Stat LAB 12/17/17 23:00 Completed URINALYSIS C & S IF INDICATED Stat LAB 12/17/17 22:52 Completed Hydromorphone HCl/Pf [Dilaudid 2 mg/ml Syringe] MEDS 12/17/17 22:54 Discontinued 2 mg IM ONCE STA Promethazine HCl [Phenergan 25 mg/ml Vial] MEDS 12/17/17 22:54 Discontinued 25 mg IM ONCE STA CT ABD/PEL WO RENAL STONE PROT Stat RADS 12/17/17 22:53 Completed Medications Discontinued Medications Generic Name Dose Route Start Last Admin Trade Name Freq PRN Reason Stop Dose Admin Hydromorphone HCl 2 mg 12/17/17 22:54 12/17/17 23:04 Dilaudid 2 Mg/Ml Syringe IM 12/17/17 22:55 2 mg ONCE STA Administration Promethazine HCl 25 mg 12/17/17 22:54 12/17/17 23:05 Phenergan 25 Mg/Ml Vial IM 12/17/17 22:55 25 mg ONCE STA Administration Vital Signs: Temp Pulse Resp BP Pulse Ox 12/17/17 22:47 97.6 F 86 16 153/76 H 97 Departure - Departure Time of Disposition: 23:57 Disposition: HOME SELF-CARE Discharge Problem: Abdominal pain Condition: Good Pt referred to PMD for follow-up: Yes IPMP verified?: No Additional Instructions: f/u with pcp Allergies/Adverse Reactions: Allergies dicyclomine [From Bentyl] Adverse Reaction (Unknown, Verified 12/15/17 12:42) amoxicillin [Amoxicillin] Adverse Reaction (Verified 12/15/17 12:42) Swelling clindamycin Adverse Reaction (Verified 12/15/17 12:42) Unknown states it is causing a bad bacteria to grow in his stomach per Dr. Jeremy trent Faviola dexamethasone [From Decadron] Adverse Reaction (Verified 12/15/17 12:42) ketorolac [From Toradol] Adverse Reaction (Verified 12/15/17 12:42) paroxetine HCl [From Paxil] Adverse Reaction (Verified 12/15/17 12:42) Penicillins Adverse Reaction (Verified 12/15/17 12:42) Swelling rofecoxib [From Vioxx] Adverse Reaction (Verified 12/15/17 12:42) Sulfa (Sulfonamide Antibiotics) Adverse Reaction (Verified 12/15/17 12:42) Rash sulfamethoxazole [From Bactrim] Adverse Reaction (Verified 12/15/17 12:42) Swelling sumatriptan [From Imitrex] Adverse Reaction (Verified 12/15/17 12:42) Rash tramadol Adverse Reaction (Verified 12/15/17 12:42) trimethoprim [From Bactrim] Adverse Reaction (Verified 12/15/17 12:42) Swelling swelling in throat Home Medications: Ambulatory Orders Ranitidine HCl [Zantac] 150 mg PO TID 07/13/17 Hydrocodone/Acetaminophen [[place] 10-325 Tablet] 1 each PO Q8HR #12 tablet Disposition Discussed With: Patient, Family
== END 2017-12-17 23:58 | disposition home or self-care (01) ==
LOC: ED 22:46
DX: R10.32 Left lower quadrant pain (principal); R30.0 Dysuria; F17.210 Nicotine dependence, cigarettes, uncomplicated
CPT/HCPCS: 36415; 74176; 80053; 81001; 85025; 96372; 99283

== ENCOUNTER 2018-01-10 12:05 | Emergency (ER) ==
[2018-01-10 12:13] VITALS: BP 147/97; TEMP 97.8; BMI 22.6
[2018-01-10] MEDS ORDERED: SODIUM CHLORIDE 1,000 ML IV STA (12:43)
[2018-01-10] MEDS ORDERED: ZOFRAN 4 MG/2 ML IVP STA (12:43)
[2018-01-10] MEDS ORDERED: MORPHINE 4 MG/ML VIAL IVP STA (12:56)
[2018-01-10] MEDS ORDERED: MORPHINE 10 MG/ML SYRINGE IVP STA (13:03)
--- NOTE | 2018-01-10 13:23 | CT ---
EXAM: CT scanning of the chest without contrast HISTORY: Cough TECHNIQUE: Helical imaging of the chest was performed without contrast. 5 mm thin axial images and coronal and sagittal reconstructions were provided for interpretation. Comparison 11/16/2017 CT scan of the chest without contrast. FINDINGS: The heart is normal size. No mediastinal masses are seen. Lungs are clear. Lung volumes are normal. No lytic or blastic lesions are seen within the osseous structures. IMPRESSION: No acute abnormalities are seen within the thorax.
--- NOTE | 2018-01-10 13:27 | CT ---
EXAM: CT scan of the abdomen and pelvis with contrast HISTORY: Left lower quadrant pain TECHNIQUE: Helical imaging of the abdomen pelvis was performed following the intravenous administrat ion of contrast. 3 mm thin axial images and coronal and sagittal reconstructions were provided for i nterpretation. Comparison 08/02/2017 CT scan of the abdomen and pelvis. FINDINGS: The liver, spleen, pancreas, adrenal glands and kidneys appear normal. The proximal urete rs are normal size. The small and large bowel loops are normal caliber. There is no free air. No a cute anomalies are seen within the anterior abdominal wall. No retroperitoneal abnormalities are see n. The helical images obtained through the pelvis demonstrate a normal appearance of the rectum, urinary bladder. There is no free fluid seen within the pelvis. The appendix appears normal. Lung bases a re clear. No lytic or blastic lesions are seen within the osseous structures. IMPRESSION: There is no obstruction or acute inflammatory change seen within the abdomen and pelvis. There is no ureteral obstruction. No acute abnormalities are seen within the abdomen and pelvis.
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
== END 2018-01-10 14:00 | disposition home or self-care (01) ==
LOC: ED 12:05
DX: R10.84 Generalized abdominal pain (principal); R05 Cough; R11.11 Vomiting without nausea; F17.210 Nicotine dependence, cigarettes, uncomplicated
CPT/HCPCS: 36415; 80053; 82150; 83690; 85025; 96361; 96374; 96375; 99283

== ENCOUNTER 2018-09-04 03:51 | Emergency (ER) ==
[2018-09-04 04:01] VITALS: BP 137/90; TEMP 99; BMI 17.8
[2018-09-04] MEDS ORDERED: FLEXERIL PO STA (04:15)
[2018-09-04] MEDS ORDERED: SOLU-CORTEF 100 MG IM STA (04:15)
--- NOTE | 2018-09-04 04:15 | ED.PDOC ---
General ED Provider: Dr. MELO VO MD Chief Complaint: Fall Stated Complaint: back pain after fall 3 days ago Time Seen by Physician: 04:10 Mode of Arrival: Walk-In Information Source: Patient Exam Limitations: No limitations Primary Care Provider: DELLA REYNOLDS Nursing and Triage Documentation Reviewed and Agree: Yes Does patient meet sepsis criteria?: No If yes, has appropriate treatment been initiated?: Yes System Inflammatory Response Syndrome: Not Applicable Sepsis Protocol: For patient's 13 years and over: Temp is 96.8 and below OR 101 and greater Pulse >90 BPM Resp >20/minute Acutely Altered Mental Status Are patient's symptoms suggestive of a new infection, such as: -Pneumonia -Skin, Soft Tissue -Endocarditis -UTI -Bone, Joint Infection -Implantable Device -Acute Abdominal Infection -Wound Infection -Meningitis -Blood Stream Catheter Infection -Unknown Review of Systems - Review Of Systems Constitutional: Reports: No symptoms Eyes: Reports: No symptoms Ears, Nose, Mouth, Throat: Reports: No symptoms Respiratory: Reports: No symptoms Cardiac: Reports: No symptoms GI: Reports: No symptoms : Reports: No symptoms Musculoskeletal: Reports: Back pain Skin: Reports: No symptoms Neurological: Reports: No symptoms Endocrine: Reports: No symptoms Hematologic/Lymphatic: Reports: No symptoms All Other Systems: Reviewed and Negative Past Medical History - Past Medical History Previously Healthy: No Endocrine: Reports: None Cardiovascular: Reports: Hypertension Respiratory: Reports: Asthma Hematological: Reports: None Gastrointestinal: Reports: GERD Genitourinary: Reports: None Neuro/Psych: Reports: Migraine, Anxiety, Depression, Bipolar Disorder Musculoskeletal: Reports: None, Back Pain Cancer: Reports: None Other Pertinent Past Medical History: Dental Caries, Hypoglycemia, C-diff. - Surgical History General Surgical History: Reports: Other (dental extractions one week ago . PE TUBES , Recent fecal matter transplant ) - Family History Family History: Reports: Unknown - Social History Smoking Status: Current every day smoker, Heavy tobacco smoker Hx Substance Use: No Alcohol Screening: None - Immunizations Tetanus Shot up to Date: Yes Influenza Vaccine within 12 Months: No Pneumococcal Vaccine up to Date: No Physical Exam - Physical Exam Appearance: Thin Ill-appearing: None Pain Distress: Mild Eyes: PRATIMA, EOMI, Conjunctiva clear ENT: Ears normal, Nose normal, Oropharynx normal Neck: Supple Respiratory: Airway patent, Breath sounds clear, Breath sounds equal, Respirations nonlabored Cardiovascular: RRR, Pulses normal, No rub, No murmur GI/: Soft, Nontender, No masses, Bowel sounds normal, No Organomegaly Musculoskeletal: Normal strength Skin: Warm, Dry, Normal color Neurological: Sensation intact, Motor intact, Reflexes intact, Cranial nerves intact, Alert, Oriented Psychiatric: Anxious Critical Care Note - Critical Care Note Total Time (mins): 0 Course - Course Orders, Labs, Meds: Orders Category Date Time Status Cyclobenzaprine HCl [Flexeril] MEDS 09/04/18 04:15 Discontinued 10 mg PO ONCE STA Hydrocortisone Sod Succ/Pf [Solu-Cortef 100 mg] MEDS 09/04/18 04:15 Stat 100 mg IM ONCE STA Medications Generic Name Dose Route Start Last Admin Trade Name Freq PRN Reason Stop Dose Admin Hydrocortisone Sodium Succinate 100 mg 09/04/18 04:15 Solu-Cortef 100 Mg IM 09/04/18 04:16 ONCE STA Discontinued Medications Generic Name Dose Route Start Last Admin Trade Name Freq PRN Reason Stop Dose Admin Cyclobenzaprine HCl 10 mg 09/04/18 04:15 Flexeril PO 09/04/18 04:16 ONCE STA Vital Signs: Temp Pulse Resp BP Pulse Ox 09/04/18 03:56 99 F 79 24 137/90 98 Departure - Departure Time of Disposition: 04:24 Disposition: HOME SELF-CARE Discharge Problem: Back strain Instructions: Low Back Strain (ED) Condition: Stable Pt referred to PMD for follow-up: Yes IPMP verified?: No Allergies/Adverse Reactions: Allergies dicyclomine [From Bentyl] Adverse Reaction (Unknown, Verified 09/04/18 03:53) acetaminophen [From Tylenol] Adverse Reaction (Verified 09/04/18 03:53) amoxicillin [Amoxicillin] Adverse Reaction (Verified 09/04/18 03:53) Swelling clindamycin Adverse Reaction (Verified 09/04/18 03:53) Unknown states it is causing a bad bacteria to grow in his stomach per Dr. Jeremy Salmeron dexamethasone [From Decadron] Adverse Reaction (Verified 09/04/18 03:53) ketorolac [From Toradol] Adverse Reaction (Verified 09/04/18 03:53) NSAIDS (Non-Steroidal Anti-Inflamma Adverse Reaction (Verified 09/04/18 03:53) paroxetine HCl [From Paxil] Adverse Reaction (Verified 09/04/18 03:53) Penicillins Adverse Reaction (Verified 09/04/18 03:53) Swelling rofecoxib [From Vioxx] Adverse Reaction (Verified 09/04/18 03:53) Sulfa (Sulfonamide Antibiotics) Adverse Reaction (Verified 09/04/18 03:53) Rash sulfamethoxazole [From Bactrim] Adverse Reaction (Verified 09/04/18 03:53) Swelling sumatriptan [From Imitrex] Adverse Reaction (Verified 09/04/18 03:53) Rash tramadol Adverse Reaction (Verified 09/04/18 03:53) trimethoprim [From Bactrim] Adverse Reaction (Verified 09/04/18 03:53) Swelling swelling in throat Home Medications: Ambulatory Orders 1 [No Reported Medications] 08/05/18
== END 2018-09-04 04:35 | disposition home or self-care (01) ==
LOC: ED 03:51
DX: S39.012A Strain of muscle, fascia and tendon of lower back, initial encounter (principal); W19.XXXA Unspecified fall, initial encounter; F17.210 Nicotine dependence, cigarettes, uncomplicated
CPT/HCPCS: 96372; 99282

== ENCOUNTER 2018-09-05 22:46 | Emergency (ER) ==
[2018-09-05 22:52] VITALS: BP 141/92; BMI 21.0
[2018-09-05] MEDS ORDERED: SODIUM CHLORIDE 1,000 ML IV STA (23:06)
[2018-09-05] MEDS ORDERED: ZOFRAN 4 MG/2 ML IVP STA (23:06)
[2018-09-05 23:53] VITALS: TEMP 101.3
--- NOTE | 2018-09-06 00:09 | ED.PDOC ---
General ED Provider: Dr. MELO NATION-ER Chief Complaint: Nausea/Vomiting Stated Complaint: analisa been vomiting and coughing Time Seen by Physician: 22:50 Mode of Arrival: Walk-In Information Source: Patient Exam Limitations: No limitations Primary Care Provider: DELLA REYNOLDS Nursing and Triage Documentation Reviewed and Agree: Yes Does patient meet sepsis criteria?: No System Inflammatory Response Syndrome: Not Applicable Sepsis Protocol: For patient's 13 years and over: Temp is 96.8 and below OR 101 and greater Pulse >90 BPM Resp >20/minute Acutely Altered Mental Status Are patient's symptoms suggestive of a new infection, such as: -Pneumonia -Skin, Soft Tissue -Endocarditis -UTI -Bone, Joint Infection -Implantable Device -Acute Abdominal Infection -Wound Infection -Meningitis -Blood Stream Catheter Infection -Unknown GI Complaint Exam - Vomiting/Diarrhea Complaint/Exam Onset/Duration: 24 hrs Symptoms Are: Still present Initial Severity: Mild Current Severity: Mild Character of Vomiting: Reports: Non-bilious Aggravating: Reports: None Alleviating: Reports: None Associated Signs and Symptoms: Reports: Abdominal pain Non-GI Risk Factors: Reports: None Surgical Obstruction Risk Factors: Reports: None Related Surgical History: Reports: None Abdominal Findings: Present: None Review of Systems - Review Of Systems Constitutional: Reports: No symptoms Eyes: Reports: No symptoms Ears, Nose, Mouth, Throat: Reports: No symptoms Respiratory: Reports: Cough Cardiac: Reports: No symptoms GI: Reports: Nausea, Vomiting : Reports: No symptoms Musculoskeletal: Reports: No symptoms Skin: Reports: No symptoms Neurological: Reports: No symptoms Endocrine: Reports: No symptoms Hematologic/Lymphatic: Reports: No symptoms All Other Systems: Reviewed and Negative Past Medical History - Past Medical History Previously Healthy: No Endocrine: Reports: None Cardiovascular: Reports: Hypertension Respiratory: Reports: Asthma Hematological: Reports: None Gastrointestinal: Reports: GERD Genitourinary: Reports: None Neuro/Psych: Reports: Migraine, Anxiety, Depression, Bipolar Disorder Musculoskeletal: Reports: None, Back Pain Cancer: Reports: None Other Pertinent Past Medical History: Dental Caries, Hypoglycemia, C-diff. - Surgical History General Surgical History: Reports: Other (dental extractions one week ago . PE TUBES , Recent fecal matter transplant ) - Family History Family History: Reports: Unknown - Social History Smoking Status: Current every day smoker, Heavy tobacco smoker Hx Substance Use: Yes Alcohol Screening: None - Immunizations Influenza Vaccine within 12 Months: No Pneumococcal Vaccine up to Date: No Physical Exam - Physical Exam Appearance: Well-appearing, No pain distress, Well-nourished Eyes: PRATIMA ENT: Ears normal Neck: Supple Respiratory: Airway patent Cardiovascular: RRR GI/: Soft, Nontender, No masses, Bowel sounds normal, No Organomegaly Musculoskeletal: Normal strength, ROM intact, No edema, No calf tenderness Skin: Warm, Dry, Normal color Neurological: Sensation intact, Motor intact, Reflexes intact, Cranial nerves intact, Alert, Oriented Psychiatric: Affect appropriate Critical Care Note - Critical Care Note Total Time (mins): 0 Course - Course Hematology/Chemistry: 09/05/18 23:30 09/05/18 23:30 Orders, Labs, Meds: Lab Review 09/05/18 09/05/18 09/05/18 22:55 23:04 23:30 WBC 9.03 RBC 4.42 L Hgb 12.9 L Hct 38.0 L MCV 86.0 MCH 29.2 MCHC 33.9 RDW Coeff of Steven 13.0 Plt Count 283 Immature Gran % (Auto) 0.6 Neut % (Auto) 63.5 Lymph % (Auto) 26.7 Green % (Auto) 5.8 Eos % (Auto) 2.7 Baso % (Auto) 0.7 Immature Gran # (Auto) 0.1 Neut # (Auto) 5.8 Lymph # (Auto) 2.4 Green # (Auto) 0.5 Eos # (Auto) 0.2 Baso # (Auto) 0.1 Puncture Site Lb O2 Saturation 99.0 ABG pH 7.398 ABG pCO2 46.0 H ABG pO2 86.0 ABG HCO3 28.4 H ABG Total CO2 30 H ABG Base Excess 4 H Yohannes Test + FiO2 % 21.0 Sodium Potassium Chloride Carbon Dioxide Anion Gap BUN Creatinine Estimated GFR (MDRD) BUN/Creatinine Ratio Glucose Lactic Acid Calcium Total Bilirubin AST ALT Alkaline Phosphatase Total Protein Albumin Globulin Albumin/Globulin Ratio Amylase Lipase Procalcitonin Urine Color Urine Clarity Urine pH Ur Specific Wis[place] Urine Protein Urine Glucose (UA) Urine Ketones Urine Blood Urine Nitrite Urine Bilirubin Urine Urobilinogen Ur Leukocyte Esterase Urine Opiates Screen Ur Oxycodone Screen Urine Methadone Screen Ur Propoxyphene Screen Ur Barbiturates Screen U Tricyclic Antidepress Ur Phencyclidine Scrn Ur Amphetamine Screen U Methamphetamines Scrn U Benzodiazepines Scrn Urine Cocaine Screen U Cannabinoids Screen Influ A Molecular Assay Negative by naat Influ B Molecular Assay Negative by naat 09/05/18 09/05/18 09/05/18 23:30 23:30 23:30 WBC RBC Hgb Hct MCV MCH MCHC RDW Coeff of Steven Plt Count Immature Gran % (Auto) Neut % (Auto) Lymph % (Auto) Green % (Auto) Eos % (Auto) Baso % (Auto) Immature Gran # (Auto) Neut # (Auto) Lymph # (Auto) Green # (Auto) Eos # (Auto) Baso # (Auto) Puncture Site O2 Saturation ABG pH ABG pCO2 ABG pO2 ABG HCO3 ABG Total CO2 ABG Base Excess Yohannes Test FiO2 % Sodium 141.0 Potassium 3.85 Chloride 104.3 Carbon Dioxide 29.4 Anion Gap 11.15 BUN 10.5 Creatinine 0.83 Estimated GFR (MDRD) 109.00 BUN/Creatinine Ratio 12.65 Glucose 92.5 Lactic Acid 1.18 Calcium 9.30 Total Bilirubin 0.50 AST 24.3 ALT 26.3 Alkaline Phosphatase 61.6 Total Protein 8.01 Albumin 4.38 Globulin 3.63 Albumin/Globulin Ratio 1.20 Amylase 96.7 Lipase 171.4 Procalcitonin < 0.05 Urine Color Urine Clarity Urine pH Ur Specific [place] Urine Protein Urine Glucose (UA) Urine Ketones Urine Blood Urine Nitrite Urine Bilirubin Urine Urobilinogen Ur Leukocyte Esterase Urine Opiates Screen Ur Oxycodone Screen Urine Methadone Screen Ur Propoxyphene Screen Ur Barbiturates Screen U Tricyclic Antidepress Ur Phencyclidine Scrn Ur Amphetamine Screen U Methamphetamines Scrn U Benzodiazepines Scrn Urine Cocaine Screen U Cannabinoids Screen Influ A Molecular Assay Influ B Molecular Assay 09/05/18 09/05/18 23:30 23:30 WBC RBC Hgb Hct MCV MCH MCHC RDW Coeff of Steven Plt Count Immature Gran % (Auto) Neut % (Auto) Lymph % (Auto) Green % (Auto) Eos % (Auto) Baso % (Auto) Immature Gran # (Auto) Neut # (Auto) Lymph # (Auto) Green # (Auto) Eos # (Auto) Baso # (Auto) Puncture Site O2 Saturation ABG pH ABG pCO2 ABG pO2 ABG HCO3 ABG Total CO2 ABG Base Excess Yohannes Test FiO2 % Sodium Potassium Chloride Carbon Dioxide Anion Gap BUN Creatinine Estimated GFR (MDRD) BUN/Creatinine Ratio Glucose Lactic Acid Calcium Total Bilirubin AST ALT Alkaline Phosphatase Total Protein Albumin Globulin Albumin/Globulin Ratio Amylase Lipase Procalcitonin Urine Color Yellow Urine Clarity Clear Urine pH 6.5 Ur Specific [place] 1.020 Urine Protein Negative Urine Glucose (UA) Negative Urine Ketones Negative Urine Blood Negative Urine Nitrite Negative Urine Bilirubin Negative Urine Urobilinogen 0.2 Ur Leukocyte Esterase Negative Urine Opiates Screen Positive Ur Oxycodone Screen Negative Urine Methadone Screen Negative Ur Propoxyphene Screen Negative Ur Barbiturates Screen Negative U Tricyclic Antidepress Negative Ur Phencyclidine Scrn Negative Ur Amphetamine Screen Negative U Methamphetamines Scrn Negative U Benzodiazepines Scrn Positive Urine Cocaine Screen Negative U Cannabinoids Screen Positive Influ A Molecular Assay Influ B Molecular Assay Orders Category Date Time Status ABG DRAW REQUEST Stat CARDIO 09/05/18 23:05 Ordered EKG-(ED ONLY) Stat CARDIO 09/05/18 23:05 Ordered ED IV/MEDIPORT/POWERPORT .ONCE EMERGENCY 09/05/18 23:06 Active ABG Stat LAB 09/05/18 23:04 Completed AMYLASE Stat LAB 09/05/18 23:30 Completed BLOOD CULTURE (ED ONLY) Stat LAB 09/05/18 23:30 Received CBC W/ AUTO DIFF Stat LAB 09/05/18 23:30 Completed COMPREHENSIVE METABOLIC PANEL Stat LAB 09/05/18 23:30 Completed FLU A & B MOLECULAR [FLU A/B MOLECULAR] Stat LAB 09/05/18 22:55 Completed LACTIC ACID Stat LAB 09/05/18 23:30 Completed LIPASE Stat LAB 09/05/18 23:30 Completed MOLECULAR GROUP A STREP Stat LAB 09/05/18 22:56 Completed PROCALCITONIN Stat LAB 09/05/18 23:30 Completed URINALYSIS C & S IF INDICATED Stat LAB 09/05/18 23:30 Completed URINE DRUG SCREEN (RAPID FOR ED) [DRUG SCREEN, URINE, LAB 09/05/18 23:30 Completed RAPID] Stat 0.9 % Sodium Chloride [Saline Flush] MEDS 09/05/18 23:06 Ordered 1 syr IVF PRN PRN Ondansetron HCl/Pf [Zofran 4 mg/2 ml] MEDS 09/05/18 23:06 Discontinued 4 mg IVP ONCE STA Sodium Chloride 0.9% [Sodium Chloride] 1,000 ml MEDS 09/05/18 23:[address] ABDOMEN/PELVIS WO CONTRAST Stat RADS 09/05/18 23:[address] CHEST W/O CONTRAST Stat RADS 09/05/18 23:06 Taken Medications Generic Name Dose Route Start Last Admin Trade Name Freq PRN Reason Stop Dose Admin Sodium Chloride 1 syr 09/05/18 23:06 09/05/18 23:19 Saline Flush IVF 1 syr PRN PRN Administration To flush IV Discontinued Medications Generic Name Dose Route Start Last Admin Trade Name Freq PRN Reason Stop Dose Admin Sodium Chloride 1,000 mls @ 1,000 mls/hr 09/05/18 23:06 09/05/18 23:39 Sodium Chloride IV 09/06/18 00:05 Not Given BOLUS STA Ondansetron HCl 4 mg 09/05/18 23:06 09/05/18 23:19 Zofran 4 Mg/2 Ml IVP 09/05/18 23:07 4 mg ONCE STA Administration Vital Signs: Temp Pulse Resp BP Pulse Ox 09/05/18 23:53 101.3 F H 09/05/18 22:47 99 F 95 H 24 141/92 H 98 Departure - Departure Time of Disposition: 00:08 Disposition: AMA Discharge Problem: Vomiting Instructions: Acute Nausea and Vomiting (ED) Condition: Good Pt referred to PMD for follow-up: Yes IPMP verified?: No Allergies/Adverse Reactions: Allergies dicyclomine [From Bentyl] Adverse Reaction (Unknown, Verified 09/05/18 22:52) acetaminophen [From Tylenol] Adverse Reaction (Verified 09/05/18 22:52) amoxicillin [Amoxicillin] Adverse Reaction (Verified 09/05/18 22:52) Swelling clindamycin Adverse Reaction (Verified 09/05/18 22:52) Unknown states it is causing a bad bacteria to grow in his stomach per Dr. Jeremy trent Faviola dexamethasone [From Decadron] Adverse Reaction (Verified 09/05/18 22:52) ketorolac [From Toradol] Adverse Reaction (Verified 09/05/18 22:52) NSAIDS (Non-Steroidal Anti-Inflamma Adverse Reaction (Verified 09/05/18 22:52) paroxetine HCl [From Paxil] Adverse Reaction (Verified 09/05/18 22:52) Penicillins Adverse Reaction (Verified 09/05/18 22:52) Swelling rofecoxib [From Vioxx] Adverse Reaction (Verified 09/05/18 22:52) Sulfa (Sulfonamide Antibiotics) Adverse Reaction (Verified 09/04/18 03:53) Rash sulfamethoxazole [From Bactrim] Adverse Reaction (Verified 09/04/18 03:53) Swelling sumatriptan [From Imitrex] Adverse Reaction (Verified 09/04/18 03:53) Rash tramadol Adverse Reaction (Verified 09/04/18 03:53) trimethoprim [From Bactrim] Adverse Reaction (Verified 09/04/18 03:53) Swelling swelling in throat Home Medications: Ambulatory Orders 1 [No Reported Medications] 08/05/18
--- NOTE | 2018-09-06 00:10 | CT ---
EXAM: CT of the chest without contrast. HISTORY: Cough. PROCEDURE: Contiguous axial CT images of the chest without contrast with coronal and sagittal reform ats. FINDINGS: The heart is within normal limits in size. The thoracic aorta is within normal limits in d iameter. There is calcified granuloma in the right upper lobe. There is minimal bibasilar dependent a telectasis. CT abdomen/pelvis of 09/05/2018 dictated separately. Impression: Minimal bibasilar dependent atelectasis.
--- NOTE | 2018-09-06 00:12 | CT ---
Exam: CT of the abdomen and pelvis without contrast History: Vomiting Technique: [address] of the abdomen and pelvis without intravascular contrast FINDINGS: The lung bases are clear. No significant liver abnormality. The adrenals, pancreas and sp sarai are unremarkable. The stomach and hiatus are unremarkable.The gallbladder appears normal. Kidn eys and proximal collecting system are unremarkable. The appendix is normal. Bowel loops demonstrat e normal caliber. No inflamatory change seen in the mesentery or retroperitoneum. Vascular structur es appear normal by noncontrast CT. Impression: 1. No inflammatory process, bowel or urinary obstruction is seen. No acute findings of the abdomen or pelvis.
== END 2018-09-06 00:05 | disposition left against medical advice (07) ==
LOC: ED 22:46
DX: R11.2 Nausea with vomiting, unspecified (principal); R05 Cough; R10.9 Unspecified abdominal pain; Z72.0 Tobacco use
CPT/HCPCS: 36415; 80053; 80306; 81001; 82150; 82803; 83605; 83690; 84145; 85025; 87040; 87502; 87651; 96374; 99284

== ENCOUNTER 2018-10-07 20:31 | Emergency (ER) ==
[2018-10-07 20:34] VITALS: BP 134/76; TEMP 97.5; BMI 24.4
--- NOTE | 2018-10-07 20:58 | ED.PDOC ---
General ED Provider: Dr. DOUG GUADARRAMA Chief Complaint: Abdominal Pain Stated Complaint: Patient is a 28 year old male who has history of Hepatitis C who is being seen by a specialist for work up. He is supposed to have a CT of liver and MRI of the back. States that he has had severe flank pain for the past day. Time Seen by Physician: 20:56 Mode of Arrival: Walk-In Information Source: Patient Exam Limitations: No limitations Primary Care Provider: DELLA REYNOLDS Nursing and Triage Documentation Reviewed and Agree: Yes Does patient meet sepsis criteria?: No System Inflammatory Response Syndrome: Not Applicable Sepsis Protocol: For patient's 13 years and over: Temp is 96.8 and below OR 101 and greater Pulse >90 BPM Resp >20/minute Acutely Altered Mental Status Are patient's symptoms suggestive of a new infection, such as: -Pneumonia -Skin, Soft Tissue -Endocarditis -UTI -Bone, Joint Infection -Implantable Device -Acute Abdominal Infection -Wound Infection -Meningitis -Blood Stream Catheter Infection -Unknown GI Complaint Exam - Abdominal Pain Complaint/Exam Onset: Sudden Location of Pain: Discrete (LEft flan and left upper quarant ) Radiates To: Reports: Flank Character: Reports: Aching, Throbbing Aggravating: Reports: None Associated Signs and Symptoms: Reports: Nausea, Vomiting Review of Systems - Review Of Systems Constitutional: Reports: No symptoms Eyes: Reports: No symptoms Ears, Nose, Mouth, Throat: Reports: No symptoms Respiratory: Reports: No symptoms Cardiac: Reports: No symptoms GI: Reports: Abdominal pain (Left upper quadrant ) : Reports: No symptoms Musculoskeletal: Reports: Back pain (Left flank ) Skin: Reports: No symptoms Neurological: Reports: No symptoms Endocrine: Reports: No symptoms Hematologic/Lymphatic: Reports: No symptoms All Other Systems: Reviewed and Negative Past Medical History - Past Medical History Previously Healthy: No Endocrine: Reports: None Cardiovascular: Reports: Hypertension Respiratory: Reports: Asthma Hematological: Reports: None Gastrointestinal: Reports: GERD, Liver (hepatitis C ) Genitourinary: Reports: None Neuro/Psych: Reports: Migraine, Anxiety, Depression, Bipolar Disorder Musculoskeletal: Reports: Back Pain Cancer: Reports: None Other Pertinent Past Medical History: Dental Caries, Hypoglycemia, C-diff. - Surgical History General Surgical History: Reports: Other (dental extractions one week ago . PE TUBES , Recent fecal matter transplant ) - Family History Family History: Reports: Unknown - Social History Smoking Status: Current every day smoker, Heavy tobacco smoker Hx Substance Use: Yes (Methamphatamine and others ) Alcohol Screening: None - Immunizations Tetanus Shot up to Date: Yes Influenza Vaccine within 12 Months: No Pneumococcal Vaccine up to Date: No Physical Exam - Physical Exam Appearance: Ill-appearing Ill-appearing: Moderate Pain Distress: Severe Eyes: PRATIMA, EOMI, Conjunctiva clear Neck: Supple Respiratory: Airway patent, Breath sounds clear, Breath sounds equal, Respirations nonlabored Cardiovascular: RRR, Pulses normal, No rub, No murmur GI/: Soft, Tender (Left upper quadrant ) Musculoskeletal: Normal strength, ROM intact, No edema, No calf tenderness Skin: Warm, Dry Neurological: Sensation intact Psychiatric: Mood appropriate, Anxious Interpretation - Radiology Interpretation Radiology Interpretation By: Radiologist Radiology Results: Negative Exam Interpreted: CT Scan (Abdomen and Pelvis ) Re-Evaluation - Re-Evaluation Time of Re-Evaluation: 21:58 Status: Improved Critical Care Note - Critical Care Note Total Time (mins): 0 Course - Course Hematology/Chemistry: 10/07/18 21:16 10/07/18 21:16 Orders, Labs, Meds: Lab Review 10/07/18 10/07/18 10/07/18 21:16 21:16 21:16 WBC 6.45 RBC 4.32 L Hgb 12.6 L Hct 37.1 L MCV 85.9 MCH 29.2 MCHC 34.0 RDW Coeff of Steven 13.0 Plt Count 207 Immature Gran % (Auto) 0.2 Neut % (Auto) 55.9 Lymph % (Auto) 33.0 [place] % (Auto) 6.7 Eos % (Auto) 3.6 Baso % (Auto) 0.6 Immature Gran # (Auto) 0.0 Neut # (Auto) 3.6 Lymph # (Auto) 2.1 [place] # (Auto) 0.4 Eos # (Auto) 0.2 Baso # (Auto) 0.0 Sodium 143.2 Potassium 3.95 Chloride 104.8 Carbon Dioxide 28.4 Anion Gap 13.95 BUN 9.2 Creatinine 0.67 Estimated GFR (MDRD) 139.00 BUN/Creatinine Ratio 13.73 Glucose 77.1 Calcium 9.14 Total Bilirubin 0.60 AST 32.7 ALT 35.3 Alkaline Phosphatase 58.6 Total Protein 8.13 Albumin 4.68 Globulin 3.45 Albumin/Globulin Ratio 1.35 Amylase 95.7 Lipase 219.9 Urine Color Yellow Urine Clarity Clear Urine pH 5.5 Ur Specific [place] 1.015 Urine Protein Negative Urine Glucose (UA) Negative Urine Ketones Negative Urine Blood Negative Urine Nitrite Negative Urine Bilirubin Negative Urine Urobilinogen 1.0 Ur Leukocyte Esterase Negative Orders Category Date Time Status AMYLASE Stat LAB 10/07/18 21:16 Completed CBC W/ AUTO DIFF Stat LAB 10/07/18 21:16 Completed COMPREHENSIVE METABOLIC PANEL Stat LAB 10/07/18 21:16 Completed LIPASE Stat LAB 10/07/18 21:16 Completed UA [URINALYSIS C & S IF INDICATED] Stat LAB 10/07/18 21:16 Completed Morphine Sulfate [Morphine 4 mg/ml Syringe] MEDS 10/07/18 21:02 Discontinued 4 mg IVP ONCE STA Ondansetron HCl/Pf [Zofran 4 mg/2 ml] MEDS 10/07/18 21:02 Discontinued 4 mg IVP ONCE STA Ringers Lactated Solution [Lactated Ringers] 1,000 ml MEDS 10/07/18 21:[address] ABD/PEL WO RENAL STONE PROT Stat RADS 10/07/18 21:02 Completed Medications Generic Name Dose Route Start Last Admin Trade Name Freq PRN Reason Stop Dose Admin Lactated Ringer's 1,000 mls @ 1,000 mls/hr 10/07/18 21:02 10/07/18 21:09 Lactated Ringers IV 10/07/18 22:01 1,000 mls/hr BOLUS STA Administration Discontinued Medications Generic Name Dose Route Start Last Admin Trade Name Freq PRN Reason Stop Dose Admin Morphine Sulfate 4 mg 10/07/18 21:02 10/07/18 21:09 Morphine 4 Mg/Ml Syringe IVP 10/07/18 21:03 4 mg ONCE STA Administration Ondansetron HCl 4 mg 10/07/18 21:02 10/07/18 21:09 Zofran 4 Mg/2 Ml IVP 10/07/18 21:03 4 mg ONCE STA Administration Vital Signs: Temp Pulse Resp BP Pulse Ox 10/07/18 20:31 97.5 F L 80 18 134/76 98 Departure - Departure Time of Disposition: 22:00 Disposition: HOME SELF-CARE Discharge Problem: Abdominal pain Instructions: Chronic Abdominal Pain (ED) Condition: Stable Pt referred to PMD for follow-up: Yes IPMP verified?: No Additional Instructions: Keep APt with your GI Doctor continue home medications. Allergies/Adverse Reactions: Allergies dicyclomine [From Bentyl] Adverse Reaction (Unknown, Verified 10/07/18 20:33) acetaminophen [From Tylenol] Adverse Reaction (Verified 10/07/18 20:33) amoxicillin [Amoxicillin] Adverse Reaction (Verified 10/07/18 20:33) Swelling clindamycin Adverse Reaction (Verified 10/07/18 20:33) Unknown states it is causing a bad bacteria to grow in his stomach per Dr. Jeremy trent [facility] dexamethasone [From Decadron] Adverse Reaction (Verified 10/07/18 20:33) ketorolac [From Toradol] Adverse Reaction (Verified 10/07/18 20:33) NSAIDS (Non-Steroidal Anti-Inflamma Adverse Reaction (Verified 10/07/18 20:33) paroxetine HCl [From Paxil] Adverse Reaction (Verified 10/07/18 20:33) Penicillins Adverse Reaction (Verified 10/07/18 20:33) Swelling rofecoxib [From Vioxx] Adverse Reaction (Verified 10/07/18 20:33) Sulfa (Sulfonamide Antibiotics) Adverse Reaction (Verified 10/07/18 20:33) Rash sulfamethoxazole [From Bactrim] Adverse Reaction (Verified 10/07/18 20:33) Swelling sumatriptan [From Imitrex] Adverse Reaction (Verified 10/07/18 20:33) Rash tramadol Adverse Reaction (Verified 10/07/18 20:33) trimethoprim [From Bactrim] Adverse Reaction (Verified 10/07/18 20:33) Swelling swelling in throat Home Medications: Ambulatory Orders 1 [No Reported Medications] 08/05/18
[2018-10-07] MEDS ORDERED: LACTATED RINGERS 1,000 ML IV STA (21:02)
[2018-10-07] MEDS ORDERED: MORPHINE 4 MG/ML SYRINGE IVP STA (21:02)
[2018-10-07] MEDS ORDERED: ZOFRAN 4 MG/2 ML IVP STA (21:02)
--- NOTE | 2018-10-07 21:43 | CT ---
Exam: CT of the abdomen and pelvis without contrast History: Left flank pain Technique: [address] of the abdomen and pelvis without intravascular contrast FINDINGS: The lung bases are clear. No significant liver abnormality. The adrenals, pancreas and s pleen are unremarkable. The stomach and hiatus are unremarkable.The gallbladder appears normal. The appendix is normal. Bowel loops demonstrate normal caliber. No inflamatory change seen in the mese ntery or retroperitoneum. Normal kidneys and proximal collecting system. Ureters are followed in eir entirety. Vascular structures appear normal. Pelvic genitourinary structures appear normal. Pelvic bowel loops are unremarkable. No inflammatory change in the pelvic fat. No acute abnormality of the abdominal or pelvic skeleton. Impression: 1. No inflammatory process, bowel or urinary obstruction is seen. No urolithiasis is seen.
== END 2018-10-07 22:20 | disposition home or self-care (01) ==
LOC: ED 20:31
DX: R10.9 Unspecified abdominal pain (principal); R11.2 Nausea with vomiting, unspecified; I10 Essential (primary) hypertension; F17.210 Nicotine dependence, cigarettes, uncomplicated
CPT/HCPCS: 36415; 74176; 80053; 81001; 82150; 83690; 85025; 96361; 96374; 96375; 99283

== ENCOUNTER 2019-01-01 17:04 | Emergency (ER) ==
[2019-01-01 17:07] VITALS: BP 134/84; TEMP 97.8; BMI 24.0
--- NOTE | 2019-01-01 20:29 | ED.PDOC ---
General ED Provider: Dr. MELO VO MD Chief Complaint: Back Pain Stated Complaint: left CVA /back pain Time Seen by Physician: 20:20 Mode of Arrival: Walk-In Information Source: Patient Exam Limitations: No limitations Nursing and Triage Documentation Reviewed and Agree: Yes Does patient meet sepsis criteria?: No If yes, has appropriate treatment been initiated?: Yes System Inflammatory Response Syndrome: Not Applicable Sepsis Protocol: For patient's 13 years and over: Temp is 96.8 and below OR 101 and greater Pulse >90 BPM Resp >20/minute Acutely Altered Mental Status Are patient's symptoms suggestive of a new infection, such as: -Pneumonia -Skin, Soft Tissue -Endocarditis -UTI -Bone, Joint Infection -Implantable Device -Acute Abdominal Infection -Wound Infection -Meningitis -Blood Stream Catheter Infection -Unknown Review of Systems - Review Of Systems Constitutional: Reports: No symptoms Eyes: Reports: No symptoms Ears, Nose, Mouth, Throat: Reports: No symptoms Respiratory: Reports: No symptoms Cardiac: Reports: No symptoms GI: Reports: No symptoms : Reports: No symptoms Musculoskeletal: Reports: Back pain Skin: Reports: No symptoms Neurological: Reports: No symptoms Endocrine: Reports: No symptoms Hematologic/Lymphatic: Reports: No symptoms All Other Systems: Reviewed and Negative Past Medical History - Past Medical History Previously Healthy: No Endocrine: Reports: None Cardiovascular: Reports: Hypertension Respiratory: Reports: Asthma Hematological: Reports: None Gastrointestinal: Reports: GERD, Liver (hepatitis C ) Genitourinary: Reports: None Neuro/Psych: Reports: Migraine, Anxiety, Depression, Bipolar Disorder Musculoskeletal: Reports: Back Pain Cancer: Reports: None Other Pertinent Past Medical History: Dental Caries, Hypoglycemia, C-diff. - Surgical History General Surgical History: Reports: Other (dental extractions one week ago . PE TUBES , Recent fecal matter transplant ) - Family History Family History: Reports: Unknown - Social History Smoking Status: Current every day smoker, Heavy tobacco smoker Hx Substance Use: Yes (Methamphatamine and others ) Alcohol Screening: None - Immunizations Influenza Vaccine within 12 Months: No Pneumococcal Vaccine up to Date: No Physical Exam - Physical Exam Appearance: Thin Ill-appearing: None Pain Distress: Mild Eyes: PRATIMA, EOMI, Conjunctiva clear ENT: Ears normal, Nose normal, Oropharynx normal Respiratory: Airway patent, Breath sounds clear, Breath sounds equal, Respirations nonlabored Cardiovascular: RRR, Pulses normal, No rub, No murmur GI/: Soft, Nontender, No masses, Bowel sounds normal, No Organomegaly Musculoskeletal: Normal strength, ROM intact, No edema, No calf tenderness Skin: Warm, Dry, Normal color Neurological: Sensation intact, Motor intact, Reflexes intact, Cranial nerves intact, Alert, Oriented Psychiatric: Affect appropriate, Mood appropriate Critical Care Note - Critical Care Note Total Time (mins): 0 Course - Course Orders, Labs, Meds: Orders Category Date Time Status UA [URINALYSIS C & S IF INDICATED] Stat LAB 01/01/19 22:16 Ordered Carisoprodol [Soma] MEDS 01/01/19 20:30 Discontinued 350 mg PO ONCE STA Medications Discontinued Medications Generic Name Dose Route Start Last Admin Trade Name Freq PRN Reason Stop Dose Admin Carisoprodol 350 mg 01/01/19 20:30 01/01/19 21:06 Soma PO 01/01/19 20:31 350 mg ONCE STA Administration Vital Signs: Temp Pulse Resp BP Pulse Ox 01/01/19 17:04 97.8 F 93 H 20 134/84 98 Departure - Departure Time of Disposition: 20:15 Disposition: HOME SELF-CARE Discharge Problem: Back pain of thoracolumbar region Instructions: Back Pain (ED) Condition: Good Pt referred to PMD for follow-up: Yes IPMP verified?: No Allergies/Adverse Reactions: Allergies dicyclomine [From Bentyl] Adverse Reaction (Unknown, Verified 01/01/19 17:07) acetaminophen [From Tylenol] Adverse Reaction (Verified 01/01/19 17:07) amoxicillin [Amoxicillin] Adverse Reaction (Verified 01/01/19 17:07) Swelling clindamycin Adverse Reaction (Verified 01/01/19 17:07) Unknown states it is causing a bad bacteria to grow in his stomach per Dr. Jeremy Salmeron dexamethasone [From Decadron] Adverse Reaction (Verified 01/01/19 17:07) ketorolac [From Toradol] Adverse Reaction (Verified 01/01/19 17:07) NSAIDS (Non-Steroidal Anti-Inflamma Adverse Reaction (Verified 01/01/19 17:07) paroxetine HCl [From Paxil] Adverse Reaction (Verified 01/01/19 17:07) Penicillins Adverse Reaction (Verified 01/01/19 17:07) Swelling rofecoxib [From Vioxx] Adverse Reaction (Verified 01/01/19 17:07) Sulfa (Sulfonamide Antibiotics) Adverse Reaction (Verified 01/01/19 17:07) Rash sulfamethoxazole [From Bactrim] Adverse Reaction (Verified 01/01/19 17:07) Swelling sumatriptan [From Imitrex] Adverse Reaction (Verified 01/01/19 17:07) Rash tramadol Adverse Reaction (Verified 01/01/19 17:07) trimethoprim [From Bactrim] Adverse Reaction (Verified 01/01/19 17:07) Swelling swelling in throat Home Medications: Ambulatory Orders Gabapentin 300 mg PO TID 01/01/19 Glecaprevir/Pibrentasvir [Mavyret 100-40 mg Tablet] 3 each PO BEDTIME 01/01/19 Hydrocodone Bit/Acetaminophen [Monitor 5-325] 1 tab PO Q8H PRN 01/01/19 Transfer Form Completed: No Disposition Discussed With: Patient
[2019-01-01] MEDS ORDERED: SOMA PO STA (20:30)
== END 2019-01-01 22:39 | disposition home or self-care (01) ==
LOC: ED 17:04
DX: M54.6 Pain in thoracic spine (principal); M54.5 Low back pain; F17.210 Nicotine dependence, cigarettes, uncomplicated
CPT/HCPCS: 81001; 99282